=== PATIENT | female | born 1940 | race Caucasian/White ===

== ENCOUNTER → 2016-08-24 | Outpatient (CLI) | payer OTHER ==
[~2016-08-24] MED LIST: ASPI81TA28 PO; ATRINS INH; ATV5X PO; BISA-16 PO; CHOLDRO3 PO; CHOLTAB3 PO; CRD30 PO; DILT30TA PO; DLC5 PO; FAMO40TA6 PO; FURO20TA PO; HYDR1SOL PO; HYDR1SUS2 PO; HYDR5LIQ PO; LORA-741 PO; LPR25 PO; MOMLX PO; MORP1SOL PO; MORP20SO PO; MRLP17X PO; MYL80 PO; NRV/5 PO; NRV5 PO; NYSS/ PO; ONDA4TAB46 PO; OXGN; PRD20 PO; PRED10TA PO; PRVHFAIN INH; SALI0.6510; SIME80CH12 PO; SYMIN160 INH; VNTHFA/IN INH; XPNINS INH
== END | disposition home or self-care (01) ==
LOC: C.LABSPEC 15:08
PROVIDERS: ATTEND Internal Medicine
DX: J44.9 Chronic obstructive pulmonary disease, unspecified (principal); Z96.0 Presence of urogenital implants

== ENCOUNTER 2017-02-20 08:05 | Inpatient (IN) | payer OTHER ==
[2017-02-20] VITALS (8 sets, daily range): BP systolic 129–151; BP diastolic 70–92; PULSE 116–133; TEMP 36.7–37.3; O2SAT 92–96; Ht 152.4 cm; Wt 86.0 kg
[~2017-02-20] VITALS: Ht 152.4 cm; Wt 86.0 kg
[~2017-02-20 08:05] MED LIST changes: -ATRINS INH; -BISA-16 PO; -CHOLDRO3 PO; -DILT30TA PO; -FURO20TA PO; -HYDR1SOL PO; -HYDR5LIQ PO; -LORA-741 PO; -LPR25 PO; -MORP20SO PO; -NRV/5 PO; -ONDA4TAB46 PO; -PRD20 PO; -PRED10TA PO; -SALI0.6510; -SIME80CH12 PO; -VNTHFA/IN INH; -XPNINS INH
[2017-02-20] MEDS ORDERED: ALBUTEROL 0.083% NEBU SOLN 3 ML VIAL INH STA (08:31)
[2017-02-20] MEDS ORDERED: METHYLPREDNISOLONE 125 MG VIAL IV STA (08:31)
[2017-02-20 08:52] LABS: BASO % 0.3 %; BASO ABS # 0.06 K/uL (0-0.2); COMPLETE YES; EOS % 4.1 %; HEMATOCRIT 45.1 % (37-47); IG% 0.3 %; LYMPH % 22.3 %; LYMPH ABS # 3.83 K/uL (1.2-3.4); MEAN CELL VOLUME 102.5 fL (80-100); MEAN CORPUSCULAR HGB CONC 31.3 g/dl (32-36); MEAN PLATELET VOLUME 11.5 fL (7.4-10.4); MONO % 8.7 %; NEUT % 64.3 %; PLATELET COUNT 220 K/uL (130-400); WHITE BLOOD COUNT 17.21 K/uL (4.8-10.8)
[2017-02-20 09:03] LABS: PARTIAL THROMBOPLASTIN RATIO 0.9; PROTHROMBIN TIME (PATIENT) 10.7 SECONDS (9.0-12.0)
[2017-02-20 09:08] LABS: VEN BLOOD GAS BASE EXCESS 7.4 mEq/L
[2017-02-20 09:11] LABS: ALT/SGPT 16 U/L (12-78); BLOOD UREA NITROGEN 13 mg/dl (7-18); BUN/CREATININE RATIO 14.1 (10-20); CALCIUM 9.6 mg/dl (8.5-10.1); CARBON DIOXIDE 33 mmol/L (21-32); CHLORIDE 98 mmol/L (98-107); CREATININE 0.95 mg/dl (0.60-1.20); GLUCOSE 164 mg/dl (70-99); SODIUM 139 mmol/L (136-145)
[2017-02-20] MEDS ORDERED: MORP20SO PO (09:13)
[2017-02-20] MEDS ORDERED: FAMO40TA6 PO (09:13)
[2017-02-20] MEDS ORDERED: LORA-741 PO (09:13)
[2017-02-20] MEDS ORDERED: PRED10TA PO (09:13)
[2017-02-20] MEDS ORDERED: DILT30TA PO (09:13)
[2017-02-20] MEDS ORDERED: NRV/5 PO (09:13)
[2017-02-20] MEDS ORDERED: HYDR1SOL PO (09:13)
[2017-02-20] MEDS ORDERED: VNTHFA/IN INH (09:13)
[2017-02-20 09:16] LABS: ALB/GLOB RATIO 0.8 (0.9-2); ALKALINE PHOSPHATASE 89 U/L (45-117); AST/SGOT 12 U/L (15-37)
--- NOTE | 2017-02-20 09:49 | DIAGNOSTIC IMAGING REPORT ---
SINGLE VIEW CHEST CLINICAL HISTORY: Cough. FINDINGS: An AP, portable, upright chest radiograph is compared to chest x-ray and chest CT dated 05/31/2015. The examination is degraded by portable technique and patient rotation. A 2-lead cardiac pacemaker is unchanged in position and partially obscures the left upper chest. The cardiomediastinal silhouette is unremarkable noting atherosclerotic calcification of the thoracic aorta. Emphysema and chronic interstitial thickening are similar to previous. Patchy airspace consolidation is seen at the left lung base. The right lung appears clear. No large pleural effusion or pneumothorax is seen. The skeletal structures are osteopenic. The bony thorax is grossly intact. IMPRESSION: 1. Emphysema. 2. Patchy airspace consolidation is seen at the left lung base. Correlate clinically for evidence of pneumonia/aspiration pneumonitis. Radiographic follow-up to resolution is recommended. 3. Cardiac pacemaker. There is no radiographic evidence of congestive failure. Electronically signed by: Contreras Thomas M.D. 02/20/2017 9:47 AM Dictated Date/Time: 02/20/2017 9:45 AM
[2017-02-20] MEDS ORDERED: PIPERACILLIN/TAZOBACTAM 3.375 GM/100ML D5W IV STA (09:59)
[2017-02-20] MEDS ORDERED: LEVALBUTEROL 1.25MG/0.5ML NEB INH STA (11:11)
[2017-02-20] MEDS ORDERED: ONDANSETRON INJ 2 MG/ML 2 ML VIAL IV PRN (11:15)
[2017-02-20] MEDS ORDERED: MAGNESIUM HYDROXIDE SUSP 30 ML UDC PO PRN (11:15)
[2017-02-20] MEDS ORDERED: LEVALBUTEROL/IPRATROPIUM NEB INH PRN (11:45)
[2017-02-20] MEDS ORDERED: HYDR5LIQ PO (11:53)
[2017-02-20] MEDS ORDERED: SIME80CH12 PO (11:53)
[2017-02-20] MEDS ORDERED: FURO20TA PO (11:53)
[2017-02-20] MEDS ORDERED: BISA-16 PO (11:53)
[2017-02-20] MEDS ORDERED: CHOLDRO3 PO (11:53)
[2017-02-20] MEDS ORDERED: ONDA4TAB46 PO (11:53)
[2017-02-20] MEDS ORDERED: OXGN (11:53)
[2017-02-20] MEDS ORDERED: PIPERACILL/TAZOBAC CONSULT ACTIVE SCH (11:56)
[2017-02-20] MEDS ORDERED: SIMETHICONE 80 MG CHEW PO PRN (12:00)
[2017-02-20] MEDS ORDERED: LEVALBUTEROL 0.63MG/3 ML NEB INH PRN (13:00)
[2017-02-20] MEDS ORDERED: IPRATROPIUM BROMIDE NEB SOLN 0.02% 2.5 ML VIAL INH PRN (13:00)
[2017-02-20] MEDS ORDERED: SODIUM CHLORIDE 0.65% NA SOLN 45 ML (OCEAN) ONE (13:11)
[2017-02-20] MEDS: METHYLPREDNISOLONE IV 40 MG in SYRINGE 0 ML IV SCH ×2 (13:15→20:14)
[2017-02-20] MEDS ORDERED: SODIUM CHLORIDE 0.9% 500ML 500 ML IV ONE (13:30)
[2017-02-20] MEDS: DILTIAZEM HCL 60 MG TAB PO SCH ×2 (13:38→20:15)
[2017-02-20] MEDS: HEPARIN SOD 5000 UNIT/0.5 ML CARP SQ SCH ×2 (13:38→20:24)
[2017-02-20] MEDS: IPRATROPIUM BROMIDE NEB SOLN 0.02% 2.5 ML VIAL INH SCH ×2 (14:17→19:02)
[2017-02-20] MEDS: LEVALBUTEROL 1.25MG/0.5ML NEB INH SCH ×2 (14:17→19:02)
[2017-02-20] MEDS ORDERED: LEVALBUTEROL/IPRATROPIUM NEB INH SCH (15:00)
[2017-02-20] MEDS ORDERED: PERFLUTREN LIPID MICROSPHERE (DEFINITY) IV ONE (15:04)
--- NOTE | 2017-02-20 15:04 | EMERGENCY ROOM VISIT NOTE ---
History Report prepared by Kwame: Aniyah Lucero Under the Supervision of: Dr. Cr Munson D.O. First contact with patient: 08:12 Stated Complaint: SHORTNESS OF BREATH History of Present Illness The patient is a 77 year old female who presents to the Emergency Room with complaints of ongoing shortness of breath that worsened over the past two to three days. The patient reports a history of COPD and chronic bronchitis. She states that she is on nasal cannula oxygen chronically. The patient states that she has a chronic cough that has not worsened. The patient reports intermittent chest pain for the past two weeks. She states that over the past three months she has had abdominal pain. The patient denies any history of PEs. She states that she has been on hospice since May 2016. The patient states that she took Ativan and Fentanyl prior to arrival. She denies any allergy to Albuterol. The patient denies headache, change in vision, fevers, nausea, vomiting, diarrhea, pain with urination, and melena. Source of History: patient Onset: two to three days Position: other (global) Quality: other (shortness of breath) Timing: worsening, other (ongoing) Associated Symptoms: + cough, + chest pain, + abdominal pain Review of Systems See HPI for pertinent positives & negatives. A total of 10 systems reviewed and were otherwise negative. Past Medical & Surgical Medical Problems: (1) 2Nd degree AV block (2) Chronic obstructive lung disease (3) Chronic respiratory failure (4) CKD (chronic kidney disease), stage III (5) COPD exacerbation (6) Essential hypertension (7) Pneumonia (8) Pulmonary hypertension (9) Right bundle branch block Surgical Problems: (1) S/P appendectomy (2) S/P placement of cardiac pacemaker (3) S/P tubal ligation Family History Diabetes mellitus FH: heart disease Hypertension Stroke Social History Smoking Status: Former Smoker Alcohol Use: none Drug Use: none Marital Status: single Occupation Status: retired Current/Historical Medications Scheduled Albuterol Hfa (Ventolin Hfa), 2 PUFFS INH QID Amlodipine Besylate (Amlodipine Besylate), 1 TAB PO DAILY Bisacodyl (Dulcolax), 2 TAB PO DAILY Cholecalciferol (Vitamin D3), 1 ML PO DAILY Diltiazem Hcl (Cardizem), 2 TAB PO TID Famotidine (Pepcid), 40 MG PO DAILY Furosemide (Lasix), 1 TAB PO UD Home O2 Therapy (Oxygen), 4 LITERS NA CONTINOUS Hydrocodone Polistirex-Chlorph (Hydrocodone Polistirex/Ch 10-8 mg/5Ml), 5 ML PO Q6 Prednisone (Prednisone), 1 TAB PO DAILY Simethicone (Mylicon), 80 MG PO Q6 Scheduled PRN Lorazepam (Ativan), 0.5 MG PO Q4H PRN for Anxiety Morphine Sulfate (Morphine Sulfate), 1.3-2.5 ML PO Q1H PRN for Shortness of Breath Ondansetron Hcl (Zofran), 4 MG PO Q6 PRN for Nausea Allergies Coded Allergies: Budesonide (Verified Allergy, Severe, TOLERATES PULMICORT.Swelling of neck , face, all extremities., 02/20/17) Tetanus Toxoids (Verified Allergy, Severe, SWELLING, 02/20/17) Albuterol (Verified Allergy, Unknown, swelling of face and neck, 02/20/17) Azithromycin (Verified Allergy, Unknown, UNKNOWN, 02/20/17) Ciprofloxacin (Verified Allergy, Unknown, UNKOWN, 02/20/17) Doxycycline (Verified Allergy, Unknown, unkn, 02/20/17) Formoterol (Verified Allergy, Unknown, Swelling of face and throat., 02/20) Ipratropium (Verified Allergy, Unknown, swelling of face and neck, ) Levofloxacin (Verified Allergy, Unknown, Flushing., 02/20/17) Mometasone (Verified Allergy, Unknown, Swelling of face and throat., 02/20) Reported by PT, reaction on 07/15/2012. Morphine (Verified Adverse Reaction, Unknown, nausea, 02/20/17) Physical Exam Vital Signs Date Time Temp Pulse Resp B/P (MAP) Pulse Ox O2 Delivery O2 Flow Rate FiO2 02/20/17 11:05 128 26 92 02/20/17 11:01 152/82 02/20/17 10:58 128 22 129/78 92 Nasal Cannula 6.0 02/20/17 10:50 129 33 92 02/20/17 10:35 130 28 92 02/20/17 10:31 129/78 02/20/17 10:20 130 24 92 02/20/17 10:05 132 29 155/82 88 02/20/17 09:50 131 33 92 02/20/17 09:35 124 25 95 02/20/17 09:20 121 31 93 02/20/17 09:05 121 22 93 02/20/17 08:50 122 28 93 02/20/17 08:49 94 Oxymask 6.0 02/20/17 08:49 94 Mask 6.0 02/20/17 08:46 94 Oxymask 6.0 02/20/17 08:38 37.3 134 32 182/98 88 Nasal Cannula 5.0 02/20/17 08:35 126 18 94 02/20/17 08:27 156/102 02/20/17 08:20 129 23 94 02/20/17 08:17 130 02/20/17 08:11 182/98 Physical Exam GENERAL: Sitting up in bed, in moderate distress, dyspneic with conversation, on 6liters, alert, well nourished, non-toxic EYE EXAM: normal conjunctiva. OROPHARYNX: no exudate, no erythema, lips, buccal mucosa, and tongue normal and mucous membranes are moist NECK: supple, no nuchal rigidity, no adenopathy, non-tender LUNGS: Poor air movement with diffuse wheezing. HEART: Tachycardic rate, no murmurs, S1 normal and S2 normal ABDOMEN: abdomen soft, non-tender, normo-active bowel sounds, no masses, no rebound or guarding. BACK: Back is symmetrical on inspection and there is no deformity, no midline tenderness, no CVA tenderness. SKIN: no rashes and no bruising UPPER EXTREMITIES: upper extremities are grossly normal. LOWER EXTREMITIES: No pitting edema. Calves are equal bilaterally. NEURO EXAM: Normal sensorium, cranial nerves II-XII grossly intact, normal speech, no gross weakness of arms, no gross weakness of legs. Medical Decision & Procedures ER Provider Diagnostic Interpretation: Radiology results as stated below per my review and the radiologist's interpretation: SINGLE VIEW CHEST CLINICAL HISTORY: Cough. FINDINGS: An AP, portable, upright chest radiograph is compared to chest x-ray and chest CT dated 05/31/2015. The examination is degraded by portable technique and patient rotation. A 2-lead cardiac pacemaker is unchanged in position and partially obscures the left upper chest. The cardiomediastinal silhouette is unremarkable noting atherosclerotic calcification of the thoracic aorta. Emphysema and chronic interstitial thickening are similar to previous. Patchy airspace consolidation is seen at the left lung base. The right lung appears clear. No large pleural effusion or pneumothorax is seen. The skeletal structures are osteopenic. The bony thorax is grossly intact. IMPRESSION: 1. Emphysema. 2. Patchy airspace consolidation is seen at the left lung base. Correlate clinically for evidence of pneumonia/aspiration pneumonitis. Radiographic follow-up to resolution is recommended. 3. Cardiac pacemaker. There is no radiographic evidence of congestive failure. Electronically signed by: Contreras Thomas M.D. 02/20/2017 9:47 AM Dictated Date/Time: 02/20/2017 9:45 AM Laboratory Results 02/20/17 08:25 Red Blood Count 4.40, Mean Corpuscular Volume 102.5, Mean Corpuscular Hemoglobin 32.0, Mean Corpuscular Hemoglobin Concent 31.3, Mean Platelet Volume 11.5, Neutrophils (%) (Auto) 64.3, Lymphocytes (%) (Auto) 22.3, Monocytes (%) ( Auto) 8.7, Eosinophils (%) (Auto) 4.1, Basophils (%) (Auto) 0.3, Neutrophils # ( Auto) 11.08, Lymphocytes # (Auto) 3.83, Monocytes # (Auto) 1.49, Eosinophils # ( Auto) 0.70, Basophils # (Auto) 0.06 02/20/17 08:25 Test 02/20/17 08:25 02/20/17 08:51 White Blood Count 17.21 K/uL (4.8-10.8) Red Blood Count 4.40 M/uL (4.2-5.4) Hemoglobin 14.1 g/dL (12.0-16.0) Hematocrit 45.1 % (37-47) Mean Corpuscular Volume 102.5 fL (80-100) Mean Corpuscular Hemoglobin 32.0 pg (25-34) Mean Corpuscular Hemoglobin Concent 31.3 g/dl (32-36) Platelet Count 220 K/uL (130-400) Mean Platelet Volume 11.5 fL (7.4-10.4) Neutrophils (%) (Auto) 64.3 % Lymphocytes (%) (Auto) 22.3 % Monocytes (%) (Auto) 8.7 % Eosinophils (%) (Auto) 4.1 % Basophils (%) (Auto) 0.3 % Neutrophils # (Auto) 11.08 K/uL (1.4-6.5) Lymphocytes # (Auto) 3.83 K/uL (1.2-3.4) Monocytes # (Auto) 1.49 K/uL (0.11-0.59) Eosinophils # (Auto) 0.70 K/uL (0-0.5) Basophils # (Auto) 0.06 K/uL (0-0.2) RDW Standard Deviation 48.9 fL (36.4-46.3) RDW Coefficient of Variation 13.0 % (11.5-14.5) Immature Granulocyte % (Auto) 0.3 % Immature Granulocyte # (Auto) 0.05 K/uL (0.00-0.02) Prothrombin Time 10.7 SECONDS (9.0-12.0) Prothromb Time International Ratio 1.0 (0.9-1.1) Activated Partial Thromboplast Time 23.1 SECONDS (21.0-31.0) Partial Thromboplastin Ratio 0.9 Anion Gap 8.0 mmol/L (3-11) Est Creatinine Clear Calc Drug Dose 51.0 ml/min Estimated GFR () 67.9 Estimated GFR (Non- 58.6 BUN/Creatinine Ratio 14.1 (10-20) Calcium Level 9.6 mg/dl (8.5-10.1) Magnesium Level 2.0 mg/dl (1.8-2.4) Total Bilirubin 0.5 mg/dl (0.2-1) Aspartate Amino Transf (AST/SGOT) 12 U/L (15-37) Alanine Aminotransferase (ALT/SGPT) 16 U/L (12-78) Alkaline Phosphatase 89 U/L (45-117) Troponin I < 0.015 ng/ml (0-0.045) Total Protein 7.5 gm/dl (6.4-8.2) Albumin 3.3 gm/dl (3.4-5.0) Globulin 4.2 gm/dl (2.5-4.0) Albumin/Globulin Ratio 0.8 (0.9-2) Procalcitonin < 0.05 ng/ml (0-0.5) Venous Blood pH 7.37 (7.36-7.41) Venous Blood Partial Pressure CO2 61 mmHg (38.0-50.0) Venous Blood Partial Pressure O2 45 mmHg Venous Blood HCO3 35 mmol/L Venous Blood Oxygen Saturation 80.0 % Venous Blood Base Excess 7.4 mEq/L Date/Time Source Procedure Growth Status 02/20/17 00:00 Nasal MRSA DNA Surveillance Screen - Final Specimen Negative for MRSA by DNA Probe Complete Laboratory results per my review. Medications Administered Medications (Trade) Dose Ordered Sig/Tracy Route Start Time Stop Time Status Last Admin Dose Admin Methylprednisolone Sodium Succinate (Solu-Medrol IV) 125 mg NOW STAT IV 02/20/17 08:31 02/20/17 08:32 DC 02/20/17 08:55 125 MG Albuterol Sulfate (Ventolin 0.083% 2.5MG/3ML Neb) 7.5 mg NOW STAT INH 02/20/17 08:31 02/20/17 08:32 DC 02/20/17 09:14 7.5 MG Piperacillin Sod/ Tazobactam Sod (Zosyn Iv) 3.375 gm NOW STAT IV 02/20/17 09:59 02/20/17 10:01 DC 02/20/17 10:56 3.375 GM ECG Indication: SOB/dyspnea Rate (beats per minute): 128 Rhythm: sinus tachycardia Findings: Q waves (Inferior), RBBB, ST depression (Lateral), other (poor baseline) Comparison ECG Date: 06/02/15 Change: When compared to EKG done on 06/02/15, the lateral ST depressions are worse today. ED Course ED COURSE: Vital signs were reviewed and showed tachycardic, hypoxic, hypertensive The patients medical record was reviewed The above diagnostic studies were performed and reviewed. ED treatments and interventions as stated above. 0817: The patient was evaluated in room A11B. A complete history and physical examination was performed. 0831: Ordered Albuterol Sulfate 7.5 mg INH, Solu-Medrol IV 125 mg IV. 0959: Ordered Zosyn IV 3.375 gm IV. 1005: Upon reevaluation, the patient is resting comfortably.I discussed my findings with the patient and she understands and agrees with the treatment plan. Based on the patients age, coexisting illnesses, exam and lab findings the decision to treat as an inpatient was made. The patient remained stable while under my care. The patient will be evaluated for further management. 1007: I discussed the patients case with JOSE Fu PA-C. She is going to evaluate the patient for further treatment. 1032: I updated the patient at this time and she is feeling better. Medical Decision Differential diagnoses includes but is not limited to pneumonia, bronchitis, COPD/Asthma exacerbation, pneumothorax, pulmonary embolism, congestive heart failure, acute coronary syndrome. Patient is a 77-year-old female who presents to ER for shortness breath. Previously on hospice and was transported in. She rewrote her hospice treatment. She was hypoxic on her typical 4 L nasal cannula. Pulse ox was in the low 80s. She was placed on 6 L. Pulse ox trended up into the low 90s. Labs were obtained. White count 17,000. BMP all within LFTs, bilirubin and troponin was negative. Patient was given 3 neb treatments with improvement of her symptoms. She is given IV steroids. She is given IV antibiotics. She is admitted with sepsis secondary to pneumonia and hypoxia. She was monitored closely wall in the ER. Medication Reconcilliation Current Medication List: was personally reviewed by me Blood Pressure Screening Patient's blood pressure: Elevated blood pressure Blood pressure disposition: Elevated BP felt to be situational, Did not require urgent referral Consults Time Called: 1005 Consulting Physician: JOSE Fu PA-C Returned Call: 1007 I discussed the patients case with JOSE Fu PA-C. She is going to evaluate the patient for further treatment. Impression Primary Impression: Pneumonia Additional Impressions: Respiratory distress COPD exacerbation Critical Care I have personally spent 35 minutes of critical care time in the direct management of this patient. This includes bedside care, interpretation of diagnostic studies, and testing, discussion with consultants, patient, and family members, and other required patient management activities. This 35 minutes is in excess of all separately billable procedures. Scribe Attestation The scribe's documentation has been prepared under my direction and personally reviewed by me in its entirety. I confirm that the note above accurately reflects all work, treatment, procedures, and medical decision making performed by me. Departure Information Dispostion Being Evaluated By Hospitalist Referrals Zara Corona M.D. (PCP) Problem Qualifiers Primary Impression: Pneumonia Pneumonia type: due to unspecified organism Laterality: unspecified laterality Lung location: unspecified part of lung Qualified Codes: J18.9 - Pneumonia, unspecified organism
--- NOTE | 2017-02-20 16:11 | History and Physical ---
History & Physical Date & Time of Service: Feb 20, 2017 at 12:02 Chief Complaint: Shortness Of Breath Primary Care Physician: Zara Corona M.D. History of Present Illness Source: patient, clinic records, hospital records Pt is 77 y/o F with PMH severe end stage COPD and on hospice, HTN, RBBB, 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 Pt on hospice since 05/2016 for end stage COPD. Reports was on hospice in past also and then off and then back on. She reports that she hasn't followed with pulmonology for years. Uses albuterol inhaler Q4hrs and prednisone 10mg daily. Pt on home O2 at 4L continuously and has SOB at rest at baseline. On morphine prn pain/sob. Uses Ativan prn anxiety. Pt states has chronic intermittent productive cough of green sputum for "years". Reports approx month ago cough of green sputum more consistent and pt was placed on Ceftin. She states initially 250mg BID x 10 days and then 500mg BID x 10 days. Pt states past 2-3 days with increased SOB. Pt reports bedridden for past year as has significant weakness. Is able to ambulate with assistance to potty chair. C/O decreased appetite for past month and didn't eat or drink much yesterday. Denies any increased LE edema and reports chronic LE edema. Has Lasix to use prn , but hasn't used that for months. Reports hx chronic CP intermittently, denies any worsening. Also reports hx chronic abdominal pain and reports morphine helps with that. Hx intermittent constipation, and reports BM yesterday. Pt states has been feeling hot, unsure if she has had a fever. Denies diaphoresis, V/D, MARIE, dizziness, syncope, vision changes, neck pain, CP, SOB, orthopnea, palpitations, sore throat, choking, otalgia, rhinorrhea, dysuria, hematuria, hematochezia, melena. In ER pt tachy at 130, R:32, 88% on 4L. WBC: 17, negative troponin. EKG: sinus tachy 128, RBBB. pt given albuterol neb with improvement of SOB, also given solumedrol 125mg, zosyn. 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 Comment: s/p pacemaker placement Status: Chronic (2) Chronic obstructive lung disease Status: Chronic (3) Chronic respiratory failure Status: Chronic (4) CKD (chronic kidney disease), stage III Status: Chronic (5) Essential hypertension Status: Chronic (6) Pulmonary hypertension Status: Chronic (7) Right bundle branch block Status: Chronic Surgical Problems: (1) S/P appendectomy Status: Chronic (2) S/P placement of cardiac pacemaker Status: Chronic (3) S/P tubal ligation Status: Chronic Family History Diabetes mellitus MOTHER GRANDMOTHER FH: heart disease MOTHER Hypertension MOTHER Stroke Social History Smoking Status: Former Smoker (quit 2009, Smoked 0.8ppd x 40 years) Smokeless Tobacco Use: No Alcohol Use: 1 glass a wine a day Drug Use: none Marital Status: single Housing status: lives with family Occupational Status: retired Immunizations History of Influenza Vaccine: No History of Tetanus Vaccine?: ALLERGIC History of Pneumococcal: Yes Pneumococcal Date: May 24, 1991 History of Hepatitis B Vaccine: No Multi-Drug Resistant Organisms History of MDRO: No Allergies Coded Allergies: Budesonide (Verified Allergy, Severe, TOLERATES PULMICORT.Swelling of neck , face, all extremities., 02/20/17) Tetanus Toxoids (Verified Allergy, Severe, SWELLING, 02/20/17) Albuterol (Verified Allergy, Unknown, swelling of face and neck, 02/20/17) Azithromycin (Verified Allergy, Unknown, UNKNOWN, 02/20/17) Ciprofloxacin (Verified Allergy, Unknown, UNKOWN, 02/20/17) Doxycycline (Verified Allergy, Unknown, unkn, 02/20/17) Formoterol (Verified Allergy, Unknown, Swelling of face and throat., 02/20) Ipratropium (Verified Allergy, Unknown, swelling of face and neck, ) Levofloxacin (Verified Allergy, Unknown, Flushing., 02/20/17) Mometasone (Verified Allergy, Unknown, Swelling of face and throat., 02/20) Reported by PT, reaction on 07/15/2012. Morphine (Verified Adverse Reaction, Unknown, nausea, 02/20/17) Home Medications Scheduled Albuterol Hfa (Ventolin Hfa), 2 PUFFS INH QID Amlodipine Besylate (Amlodipine Besylate), 1 TAB PO DAILY Bisacodyl (Dulcolax), 2 TAB PO DAILY Cholecalciferol (Vitamin D3), 1 ML PO DAILY Diltiazem Hcl (Cardizem), 2 TAB PO TID Famotidine (Pepcid), 40 MG PO DAILY Furosemide (Lasix), 1 TAB PO UD Home O2 Therapy (Oxygen), 4 LITERS NA CONTINOUS Hydrocodone Polistirex-Chlorph (Hydrocodone Polistirex/Ch 10-8 mg/5Ml), 5 ML PO Q6 Prednisone (Prednisone), 1 TAB PO DAILY Simethicone (Mylicon), 80 MG PO Q6 Scheduled PRN Lorazepam (Ativan), 0.5 MG PO Q4H PRN for Anxiety Morphine Sulfate (Morphine Sulfate), 1.3-2.5 ML PO Q1H PRN for Shortness of Breath Ondansetron Hcl (Zofran), 4 MG PO Q6 PRN for Nausea Review of Systems Constitutional: + problem reported (see HPI), No weight loss Eyes: No eye pain, No redness, No discharge ENT: No unusual epistaxis, No nasal symptoms Respiratory: + problem reported (see HPI) Cardiovascular: + problem reported (see HPI), No PND Abdomen: + problem reported (see HPI) Musculoskeletal: No joint pain, No muscle pain, No calf pain Neurologic: + weakness (see HPI), + balance problems (reports problems with balance for greater than a year), No paralysis, No problem reported Endocrine: No excessive thirst, No excessive urination Hematologic / Lymphatic: No abnormal bleeding/bruising, No night sweats Physical Exam Vital Signs Date Time Temp Pulse Resp B/P (MAP) Pulse Ox O2 Delivery O2 Flow Rate FiO2 02/20/17 11:33 126 02/20/17 10:58 128 22 129/78 92 Nasal Cannula 6.0 02/20/17 08:49 94 Oxymask 6.0 02/20/17 08:49 94 Mask 6.0 02/20/17 08:46 94 Oxymask 6.0 02/20/17 08:38 37.3 134 32 182/98 88 Nasal Cannula 5.0 02/20/17 08:17 130 General Appearance: + obese, + pertinent finding (chronic ill appearing. pt sitting upright in bed) Head: normocephalic, atraumatic Eyes: normal inspection, PERRL, EOMI, sclerae normal ENT: hearing grossly normal, pharynx normal, + pertinent finding (mildly dry mucous membranes. bilateral nare with scab) Neck: supple, no JVD, trachea midline Respiratory/Chest: chest non-tender, + respiratory distress (increased respirations with mild work of breathing, pt is able to speak in sentences, On NC O2. ), + decreased breath sounds (throughout, +wheezing throughout, rhonchi bases, rales left base) Cardiovascular: no murmur, + tachycardia Abdomen/GI: + pertinent finding (distended, +umbilical hernia, soft, diffuse tenderness to palpation entire abdomen without rebound or guarding) Extremities/Musculoskelatal: no calf tenderness, normal capillary refill, non- tender, + swelling (bilateral LE 1+pitting edema), + pertinent finding (pedal pushes and pulls intact) Neurologic/Psych: alert, normal mood/affect, oriented x 3 Skin: normal color, warm/dry Diagnostics Laboratory Results Last 24 Hours Test 02/20/17 08:25 02/20/17 08:51 White Blood Count 17.21 K/uL Red Blood Count 4.40 M/uL Hemoglobin 14.1 g/dL Hematocrit 45.1 % Mean Corpuscular Volume 102.5 fL Mean Corpuscular Hemoglobin 32.0 pg Mean Corpuscular Hemoglobin Concent 31.3 g/dl Platelet Count 220 K/uL Mean Platelet Volume 11.5 fL Neutrophils (%) (Auto) 64.3 % Lymphocytes (%) (Auto) 22.3 % Monocytes (%) (Auto) 8.7 % Eosinophils (%) (Auto) 4.1 % Basophils (%) (Auto) 0.3 % Neutrophils # (Auto) 11.08 K/uL Lymphocytes # (Auto) 3.83 K/uL Monocytes # (Auto) 1.49 K/uL Eosinophils # (Auto) 0.70 K/uL Basophils # (Auto) 0.06 K/uL RDW Standard Deviation 48.9 fL RDW Coefficient of Variation 13.0 % Immature Granulocyte % (Auto) 0.3 % Immature Granulocyte # (Auto) 0.05 K/uL Prothrombin Time 10.7 SECONDS Prothromb Time International Ratio 1.0 Activated Partial Thromboplast Time 23.1 SECONDS Partial Thromboplastin Ratio 0.9 Sodium Level 139 mmol/L Potassium Level 4.0 mmol/L Chloride Level 98 mmol/L Carbon Dioxide Level 33 mmol/L Anion Gap 8.0 mmol/L Blood Urea Nitrogen 13 mg/dl Creatinine 0.95 mg/dl Est Creatinine Clear Calc Drug Dose 51.0 ml/min Estimated GFR () 67.9 Estimated GFR (Non- 58.6 BUN/Creatinine Ratio 14.1 Random Glucose 164 mg/dl Calcium Level 9.6 mg/dl Magnesium Level 2.0 mg/dl Total Bilirubin 0.5 mg/dl Aspartate Amino Transf (AST/SGOT) 12 U/L Alanine Aminotransferase (ALT/SGPT) 16 U/L Alkaline Phosphatase 89 U/L Troponin I < 0.015 ng/ml Total Protein 7.5 gm/dl Albumin 3.3 gm/dl Globulin 4.2 gm/dl Albumin/Globulin Ratio 0.8 Procalcitonin < 0.05 ng/ml Venous Blood pH 7.37 Venous Blood Partial Pressure CO2 61 mmHg Venous Blood Partial Pressure O2 45 mmHg Venous Blood HCO3 35 mmol/L Venous Blood Oxygen Saturation 80.0 % Venous Blood Base Excess 7.4 mEq/L Diagnostic Radiology CXR: IMPRESSION: 1. Emphysema. 2. Patchy airspace consolidation is seen at the left lung base. Correlate clinically for evidence of pneumonia/aspiration pneumonitis. Radiographic follow-up to resolution is recommended. 3. Cardiac pacemaker. There is no radiographic evidence of congestive failure EKG EKG: Sinus tachycardia Low voltage QRS Right bundle branch block T wave abnormality, consider lateral ischemia Abnormal ECG When compared with ECG of 02-JUN-2015 07:32, T wave inversion no longer evident in Inferior leads Confirmed by Sean Rothman ([id number]) on 02/20/2017 10:28:35 AM Impression Assessment and Plan COPD EXACERBATION Pt with chronic respiratory failure on 4L NC O2 dependent, on hospice with c/o increased sputum production, cough and increased baseline SOB. Pt given solumedrol 125mg IV in ER. had albuterol neb with improvement of SOB -trial of NSS bolus for tachycardia with improvement -continue O2 -solumedrol -MRSA screen -sputum culture -influenza swab -blood cultures added -xopenex/atrovent Q 6 h -pulmonology consult -pt does not want to be intubated PNEUMONIA CXR: consolidation LLL. WBC: 17, however pt is on chronic sterids. negative procalcitonin. Pt afebrile. suspect CAP. does not appear septic at this time -continue zosyn -consider repeat CXR -repeat cbc, prp in am HTN continue amlodipine -continue cardizem CHRONIC CP hx pacer. hx RBBB. Denies any worsening CP. Last echo 2016 EF: 65-70% -pacer check -echo CKD Cr 0.9 -baseline -avoid nephrotoxic agents when possible CHRONIC ABDOMINAL PAIN denies any worsening. pt uses morphine prn pain and prn breathing problems -hold on morphine initially to monitor pt GERD -continue pepcid DVT PROPHYLAXIS -heparin SQ DISPOSITION -admit tele -DNR and DNI as per discussion with pt -Follows with Dr Corona for routine care Pt was seen with Dr Robles. See addendum I have seen and examined the patient with our hospitalist team physician bookkeeping assistant and agree with the assessment and plan as above and would like to comment that patient is being treated for Acute on chronic respiratory failure with hypoxia and hypercarbia likely secondary to underlying Chronic obstructive pulmonary disease and on imaging with Left lower lobe infiltrate with concerns for pneumonia. Patient is also on narcotics at home for pain and shortness of breath. At this time will give narcotics prn to prevent withdrawal. However the main respiratory treatments will be methylprednisolone 40 mg IV q. 6 hours and on levalbuterol 1.25 q. 6 hours and ipratropium. As per pulmonary recommendations if patient's heart rate is high then should decrease the levalbuterol dose to 0.63. When patient's dyspnea improves and if patient can tolerate lying down flat, then possible CT scan of chest for further evaluation of the lung infiltrates Level of Care Telemetry Resuscitation Status DO NOT RESUSCITATE VTE Prophylaxis VTE Risk Assessment Done? Y/N: Yes Risk Level: Moderate Given or contraindicated: Unfractionated heparin SQ Additional Copies To Zara Corona M.D.
[2017-02-20] MEDS ORDERED: INFLUENZA ADMINISTRATION CHARGE ONE (16:15)
[2017-02-20] MEDS ORDERED: INFLUENZA VIRUS QUAD VACCINE 0.5 ML SYR IM. ONE (16:15)
[2017-02-20] MEDS: PIPERACILL/TAZOBAC IV 4.5 GM in DEXTROSE 5% 100ML IV SCH (16:22)
[2017-02-20] MEDS: LORAZEPAM 0.5 MG TAB PO PRN ×2 (16:32→21:47)
[2017-02-20 17:13] LABS: URINE APPEARANCE CLEAR (CLEAR); URINE BILIRUBIN NEG (NEG); URINE COLOR YELLOW; URINE NITRITE NEG (NEG); URINE SPECIFIC GRAVITY 1.028 (1.000-1.030); UROBILINOGEN NEG (NEG); ZZUR CULT IF INDIC CLEAN CATCH NO
[2017-02-20 17:18] LABS: MANUAL MICROSCOPIC REQUIRED? NO; REVIEW REQ? NO
--- NOTE | 2017-02-20 17:35 | ECHOCARDIOGRAM REPORT ---
*NOTICE TO RECEIVING DEMOCRAT AGENCY This information is strictly Confidential and protected under [place] law. [place] law prohibits you from making any further disclosure of this information unless further disclosure is expressly permitted by the written consent of the person to whom it pertains or is authorized by law. A general authorization for the release of medical or other information is not sufficient for this purpose. Hospital accepts no responsibility if the information is made available to any other person, INCLUDING THE PATIENT. Interpretation Summary * Name: GLENYS COFFEY Study Date: 02/20/2017 02:22 PM BP: 145/92 mmHg * Patient Location: .2E\S\E203\S\1 HR: 116 * : 1940 (M/d/yyyy) Gender: Female Height: 60 in * Age: 77 yrs Ethnicity: [place] Weight: 197 lb * Ordering Physician: Consuelo Liao * Referring Physician: Self, Referred * Performed By: Frank Meeks RCS * * Reason For Study: Chest Pain * BSA: 1.9 m2 * The study was technically limited. * -- Conclusions -- * Sinsu tachycardia was present during the echocardiogram. * The valves were not well visualized, and the Doppler assessment of the valves is suboptimal due to technical limitations and patient position, as patient was apparently sitting upright for the study, unable to lie down. Procedure Details * A complete two-dimensional transthoracic echocardiogram was performed (2D, M-mode, Doppler and color flow Doppler). * A contrast injection of Definity was performed to improve assessment of LV function. * Contrast was injected into an intravenous site in the right arm. * One vial of Definity ultrasound contrast was diluted in normal saline to a total volume of 10 ml. A total of '1' ml of solution was administered during imaging. * Lot # [id number] of Definity utilized for procedure. * Expiration date 1DEC18. * The attending nurse who injected the contrast agent was Amador Baumann RN. Left Ventricle * The left ventricle is hyperdynamic. Right Ventricle * The right ventricle is normal in size and function. Pericardium/Pleural * There is no pericardial effusion. MMode 2D Measurements and Calculations IVSd 0.88 cm IVSs 1.2 cm LVIDd 3.7 cm LVIDs 2.1 cm LVPWd 1.0 cm LVPWs 1.2 cm IVS/LVPW 0.85 FS 41.4 % EDV(Teich) 56.4 ml ESV(Teich) 15.1 ml EF(Teich) 73.2 % EDV(cubed) 48.8 ml ESV(cubed) 9.8 ml EF(cubed) 79.9 % % IVS thick 40.1 % % LVPW thick 11.5 % LV mass(C)d 103.7 grams LV mass(C)dI 55.9 grams/m\S\2 LV mass(C)s 69.6 grams LV mass(C)sI 37.5 grams/m\S\2 SV(Teich) 41.3 ml SI(Teich) 22.3 ml/m\S\2 SV(cubed) 39.0 ml SI(cubed) 21.0 ml/m\S\2 Ao root diam 3.2 cm Ao root area 7.9 cm\S\2 ACS 1.0 cm LA dimension 3.1 cm asc Aorta Diam 2.8 cm LA/Ao 0.97 EDV(MOD-sp4) 77.1 ml ESV(MOD-sp4) 27.5 ml EF(MOD-sp4) 64.3 % EDV(MOD-sp2) 64.5 ml ESV(MOD-sp2) 18.3 ml EF(MOD-sp2) 71.5 % SV(MOD-sp4) 49.6 ml SI(MOD-sp4) 26.7 ml/m\S\2 SV(MOD-sp2) 46.1 ml SI(MOD-sp2) 24.9 ml/m\S\2 Doppler Measurements and Calculations MV E max salty 120.6 cm/sec MV A max salty 56.1 cm/sec MV E/A 2.1 MV P1/2t max salty 140.4 cm/sec MV P1/2t 42.9 msec MVA(P1/2t) 5.1 cm\S\2 MV dec slope 959.1 cm/sec\S\2 MV dec time 0.11 sec Ao V2 max 156.2 cm/sec Ao max PG 9.8 mmHg Ao max PG (full) 5.4 mmHg LV V1 max PG 4.4 mmHg LV V1 max 104.7 cm/sec PA V2 max 119.5 cm/sec PA max PG 5.7 mmHg TR max salty 251.4 cm/sec
--- NOTE | 2017-02-20 18:12 | PULMONARY CONSULTATION ---
DATE OF CONSULTATION: 02/20/2017 TIME: 04:20 p.m. HISTORY OF PRESENT ILLNESS: The patient was seen in room 203. She is a 77-year-old female who presents with a chief complaint of severe shortness of breath. She has a longstanding history of severe COPD. In fact, the patient had been on hospice care at least since May. She used to be followed by Dr. Steele more than 5 years ago. Currently, patient is essentially bedridden. She states she only gets out to go to her doctor once a year or so. She states she has not been able to walk for several months. The exact reason for that was not clear to me. She has had a worsening of her breathing over the past few days. She states that her family doctor had prescribed an antibiotic. It seemed to decrease her cough and decrease her mucus. Her shortness of breath did not get better, however. She complains of chronic chest pains, both anteriorly and posteriorly. She complains of abdominal pain for 3 months, which she states is because of a hernia. The patient has not coughed up any blood. She does not bring up any phlegm at all or not much phlegm. She does have fairly frequent nose bleeds. The patient came to the Emergency Room and was evaluated. She had a chest x-ray done that reported a patchy airspace consolidation at the left lung base, suggesting possible pneumonia. She also had a pacemaker in the left upper anterior chest. Back in May of 2015, a comparison x-ray did show some discoid atelectasis at the left lung base in approximately the same area. Thus, it is difficult to be certain this is truly acute. The patient states that she cannot lay flat. Her breathing gets too bad. She lives with her son. She is on chronic oxygen therapy. She is also on chronic prednisone at 10 mg per day. She has been on chronic morphine therapy as well. The patient admits to drinking about 2 glasses of wine per day. I asked her if she was aware of problems drinking alcohol and using narcotics and she indicated that she was. PAST SURGICAL HISTORY: 1. Appendectomy. 2. Pacemaker insertion. 3. Tubal ligation. PAST MEDICAL HISTORY: 1. Hypertension. 2. Anxiety. 3. Chronic kidney disease stage III. 4. Pulmonary hypertension. 5. Severe COPD as noted. SOCIAL HISTORY: Tobacco none for 11 years. Previously 3/4 pack per day for 45 years. Alcohol use is described as 2 glasses of wine per day. FAMILY HISTORY: Father following complications of hip fracture. Mother soon after her father , less than 2 weeks. She did have hypertension. 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 REVIEW OF SYSTEMS: In addition to the above-mentioned complaints, the patient has severe weakness. She describes having balance problems. She states she has had pain in her chest and in her abdomen and now it has extended into her legs. The source for that pain is unclear. MEDICATIONS AT HOME: 1. Albuterol HFA 2 puffs q.i.d. 2. Prednisone 10 mg daily. 3. Amlodipine 1 tab daily. 4. Dulcolax 2 tabs daily. 5. Vitamin D3 daily. 6. Cardizem 2 tabs t.i.d. 7. Pepcid 40 mg daily. 8. Furosemide 1 daily. 9. O2 4 liters continuous. 10. Hydrocodone syrup q. 6 hours. ALLERGIES: LISTED ALLERGIES TO BUDESONIDE, TETANUS, AZITHROMYCIN, CIPROFLOXACIN, DOXYCYCLINE, FORMOTEROL, IPRATROPIUM, LEVOFLOXACIN, MOMETASONE, AND MORPHINE. SHE IS ALSO LISTED ALLERGIC TO ALBUTEROL. HER MEDICATIONS DO LIST ALBUTEROL AND MORPHINE DESPITE THE FACT SHE IS ON THOSE MEDICINES. REVIEW OF SYSTEMS: She has urinary incontinence. She has the bloody noses as mentioned. She has a lot of anxiety and I suspect depression. She states she is nonambulatory. Remainder of the review of systems is negative except as noted above. PHYSICAL EXAMINATION: GENERAL: The patient is a 77-year-old female who was cooperative, alert and oriented. She was in no distress at rest. She did appear fairly weak. Weight is 89.5 kilograms for a BMI of 38.5. VITAL SIGNS: Blood pressure is 145/92. Respiratory rate was 20 breaths per minute at the time of my exam. Heart rate is 130 per minute. Saturation was 93% on 5 liters. HEENT: Eye exam suggest cataracts. Arcus senilis was noted. Nares were congested. Mouth exam showed crowding. She has partial plates top and bottom. NECK: Palpation of the neck reveals no lymph nodes. HEART: The rhythm was regular. The patient tells me she has had a rapid rate all of her life, but I do not believe it has been to this degree. LUNGS: The breath sounds are very diminished. She has rales, but no wheezing. There was no accessory muscle use. The patient was exquisitely tender to touching her chest either anteriorly or posteriorly. CHEST: Inspection of the abdomen reveals mild distention. She has what appears to be an abdominal wall hernia. Bowel sounds were decreased, but present. She complained of tender areas diffusely in the abdomen. EXTREMITIES: Showed no cyanosis. She had trace edema. LABORATORY AND IMAGING DATA: Chest x-ray as noted showed a patchy airspace consolidation at the left lung base, emphysema, and a pacemaker. White count is 17.21. Hemoglobin 14.1. Platelets 220,000. Coags were normal. Venous blood gas showed a pH 7.37, pCO2 of 61, and pO2 of 45. Electrolytes show sodium 139, potassium 4.0, chloride 98, and bicarb 33. The BUN is 13 with a creatinine of 0.95. Liver functions were normal. Albumin was 3.3 and globulin was 4.2. Procalcitonin was normal. IMPRESSION: 1. Acute on chronic respiratory failure with hypoxia and hypercarbia. 2. Left lower lobe infiltrate. 3. Chronic obstructive pulmonary disease -- severe. 4. Chronic pain syndrome. 5. Abdominal pain -- possibly secondary to hernia. COMMENTS AND RECOMMENDATIONS: The patient is on Zosyn. I agree with that. She is on levalbuterol 1.25 q. 6 hours and ipratropium. I believe ipratropium was listed as an allergy, but I am not aware that she has had any problems thus far. This can be followed closely. If her heart rate stays up, I would decrease the levalbuterol dose to 0.63. I do agree with the methylprednisolone 40 mg IV q. 6 hours for now. She is on diltiazem 60 mg t.i.d. Obviously, the patient's chronic status is poor. I suspect she has been getting a lot of narcotics and taking alcohol as well and she apparently is also on cough medicine with hydrocodone. She is also listed as being on lorazepam. She had been on hospice care and I suspect this is where some of these medicines come from. She will need to have some narcotics to be used as needed. Otherwise, she will go into withdrawal. Apparently comfort care is the treatment of choice. She will need followup x-rays. Ideally, a CAT scan would be better to try and delineate exactly what that infiltrate is since there may have been something chronic in the same area. The patient does not think that she could lay flat, however. Thus, there are some impediment to treatment and diagnosis.
[2017-02-20 19:16] LABS: INFLUENZA A PCR Neg for Influ A (NEG); INFLUENZA B PCR Neg for Influ B (NEG)
[2017-02-20] MEDS: SENNA 8.6 MG TAB PO SCH (20:15)
[2017-02-20] MEDS: DOCUSATE SODIUM 100 MG CAP PO SCH (20:16)
[2017-02-20] MEDS: BOOST VANILLA PO SCH ×2 (20:32)
[2017-02-20] MEDS: MoRPHine SULFATE 2.5 MG/0.125 ML UDP PO PRN (21:47)
[2017-02-20] MEDS: CHLORPH/HYDROCOD EXT REL LIQ 5ML UDP PO PRN (21:52)
[2017-02-21] VITALS (13 sets, daily range): BP systolic 109–149; BP diastolic 71–92; PULSE 83–119; TEMP 36.5–37.2; O2SAT 92–97
[2017-02-21] MEDS: PIPERACILL/TAZOBAC IV 4.5 GM in DEXTROSE 5% 100ML IV SCH ×5 (00:15→23:40)
[2017-02-21] MEDS: METHYLPREDNISOLONE IV 40 MG in SYRINGE 0 ML IV SCH ×4 (02:00→21:18)
[2017-02-21] MEDS: IPRATROPIUM BROMIDE NEB SOLN 0.02% 2.5 ML VIAL INH SCH ×4 (02:16→18:59)
[2017-02-21] MEDS: MoRPHine SULFATE 2.5 MG/0.125 ML UDP PO PRN (04:12)
[2017-02-21] MEDS: LORAZEPAM 0.5 MG TAB PO PRN ×4 (04:12→18:16)
[2017-02-21] MEDS: HEPARIN SOD 5000 UNIT/0.5 ML CARP SQ SCH ×3 (06:10→21:23)
[2017-02-21 06:54] LABS: HEMATOCRIT 39.3 % (37-47); MEAN CELL VOLUME 100.5 fL (80-100); MEAN CORPUSCULAR HGB CONC 31.8 g/dl (32-36); MEAN PLATELET VOLUME 11.3 fL (7.4-10.4); PLATELET COUNT 173 K/uL (130-400); RED BLOOD COUNT 3.91 M/uL (4.2-5.4); WHITE BLOOD COUNT 20.37 K/uL (4.8-10.8)
[2017-02-21 07:29] LABS: BUN/CREATININE RATIO 17.4 (10-20); CALCIUM 9.3 mg/dl (8.5-10.1); CREATININE 0.89 mg/dl (0.60-1.20); POTASSIUM 4.1 mmol/L (3.5-5.1)
[2017-02-21] MEDS: BOOST VANILLA PO SCH ×6 (08:12→21:22)
[2017-02-21] MEDS: FAMOTIDINE 20 MG TAB PO SCH (08:12)
[2017-02-21] MEDS: DOCUSATE SODIUM 100 MG CAP PO SCH ×2 (08:12→21:19)
[2017-02-21] MEDS: SENNA 8.6 MG TAB PO SCH ×2 (08:12→21:19)
[2017-02-21] MEDS: DILTIAZEM HCL 60 MG TAB PO SCH ×3 (08:13→21:19)
[2017-02-21] MEDS: AMLODIPINE BESYLATE 5 MG TAB PO SCH (08:13)
[2017-02-21] MEDS ORDERED: BISACODYL 5 MG TABEC PO PRN (09:00)
--- NOTE | 2017-02-21 11:40 | PROGRESS NOTE ---
DATE: 02/21/2017 DATE: 02/21/2017 PROBLEM LIST: Includes: 1. Acute on chronic respiratory failure, hypoxia and hypercarbia. 2. Left lower lobe infiltrate. 3. Chronic obstructive pulmonary disease which is severe/end stage. 4. Chronic pain syndrome. 5. Abdominal pain. SUBJECTIVE: The patient was evaluated in room 203. She is a 77-year-old female who was on hospice at home prior to coming into the hospital. She has been on hospice for majority of this year, came in with increased shortness of breath. She is feeling better, she states that she is feeling much better today than she was when she came in. She states that she actually feels about 10% better that she normally does at home. She was not really having any cough or congestion at this point. The patient asked me if I had any aftershave on. I informed her I did not, but apparently there was an aroma that she fell she could not tolerate. Unfortunately because there was something that was affecting her respiratory status I was not able to complete the exam, the patient did not exhibit any coughing while I was in. She was able to complete sentences without difficulty. OBJECTIVE: GENERAL: The patient is a 77-year-old female who is alert and interactive, did not appear in any acute respiratory distress when I was in the room, did not appear in any distress in general, was able to complete sentences without difficulty. VITAL SIGNS: Temp 37, pulse 108, respiration 25, blood pressure is 138/70, pulse ox 97% on 4.5-5 liters. LABORATORY DATA: Shows a white count of 20,000, H&H 12.5 and 39.3, platelet count 173,000. Renal function stable. Sugar is 230. Procalcitonin is less than 0.05. Influenza titers negative. Blood cultures are pending. MRSA swab negative. IMPRESSION: Acute on chronic respiratory failure with hypoxia and hypercarbia. Unfortunately, unable to examine the patient today. Nursing reports that she has been doing well and has not shown any respiratory difficulties. What I was able to observe did not show any respiratory difficulties, although was not able to directly auscultate the lungs. At this point, since the patient gave me the history that she is doing better than she even does at home I would recommend to continue current regimen as it is. Will relay this information to Dr. Melendez as Dr. Melendez may want to try and assess her today as he was able to assess her yesterday. [facility]
--- NOTE | 2017-02-21 15:43 | Palliative Care Consultation ---
Consultation Date of Consultation: Feb 21, 2017. Requesting Physician: Dr. Robles Attending Physician: Dr. Robles Reason for Consultation: Goals of care History of Present Illness This 77 year old female patient with PMH severe COPD, oxygen dependence, and others listed below, presented to the hospital yesterday from home with c/o SOB. Patient is a hospice patient since May 2016 for her end-stage COPD, had been with another hospice agency prior to that as well. Apparently the patient had been having increased cough/sputum/SOB. She states that she and her son attempted to call hospice agency but they weren't able to come to the home, so 911 was called. CXR showed patchy airspace consolidation in LLL- pneumonia vs. aspiration pneumonitis. While in hospital, patient is receiving IV abx, IV steroids, and neb treatments. Palliative care consulted to establish goals of care. Met with patient in room 203, her sister is at bedside as well. Patient is alert and oriented x4. She reports pain at 7/10 generalized all over body-- she is in no distress and is talking to me in full sentences without difficulty. Patient states her breathing is only about 10% better. She is not getting out of bed, but patient states that is her norm. Her son quit his job to stay home with her, but she states that he is burnt-out and needs help. Her wish is to go back home with hospice. Patient states she does have pain 7/10, could not really tell me exactly where her pain is or what it's from. She states that she takes 1.25-2.5ml of her Roxanol at home, our med rec says it's 20mg/5ml, which would make patient's dose 5-10mg. She could not tell me how many times a day she takes it. Patient said that we are not giving her enough pain medication. I explained that the providers were concerned about giving too many narcotics probably due to the potential side effects of being drowsy, patient said, "I like feeling that way. " Past Medical/Surgical History Medical History: COPD, oxygen dependent Htn Right BBB Pacemaker insertion 2016 GERD Social History Smoking Status: Former Smoker (quit 2009, Smoked 0.8ppd x 40 years) History of Alcohol Use: Yes (wine 1-2 glasses/night) Drug Use: none Marital Status: single Housing Status: lives with family Occupation Status: retired Review of Systems Constitutional: + weakness (at baseline) ENT: No trouble swallowing Respiratory: + cough, + shortness of breath, + dyspnea on exertion Cardiac: No chest pain, No edema Abdomen: No pain, No nausea, No vomiting Psychiatric: + anxiety, No depression symptoms (but was tearful) Allergies Coded Allergies: Budesonide (Verified Allergy, Severe, TOLERATES PULMICORT.Swelling of neck , face, all extremities., 02/20/17) Tetanus Toxoids (Verified Allergy, Severe, SWELLING, 02/20/17) [place] (Verified Allergy, Mild, hives, 02/21/17) Albuterol (Verified Allergy, Unknown, swelling of face and neck, 02/20/17) Azithromycin (Verified Allergy, Unknown, UNKNOWN, 02/20/17) Ciprofloxacin (Verified Allergy, Unknown, UNKOWN, 02/20/17) Doxycycline (Verified Allergy, Unknown, unkn, 02/20/17) Formoterol (Verified Allergy, Unknown, Swelling of face and throat., 02/20) Ipratropium (Verified Allergy, Unknown, swelling of face and neck, ) Levofloxacin (Verified Allergy, Unknown, Flushing., 02/20/17) Mometasone (Verified Allergy, Unknown, Swelling of face and throat., 02/20) Reported by PT, reaction on 07/15/2012. Morphine (Verified Adverse Reaction, Unknown, nausea, 02/20/17) Medications Current Inpatient Medications Medications (Trade) Dose Ordered Sig/Tracy Route Start Time Stop Time Status Last Admin Dose Admin Acetaminophen (Tylenol Tab) 650 mg Q4H PRN PO 02/20/17 11:15 03/22/17 11:14 Magnesium Hydroxide (Milk Of Magnesia Susp) 30 ml Q12H PRN PO 02/20/17 11:15 03/22/17 11:14 Ondansetron HCl (Zofran Inj) 4 mg Q6H PRN IV 02/20/17 11:15 03/22/17 11:14 Piperacillin Sod/ Tazobactam Sod (Consult) 1 ea UD N/A 02/20/17 11:56 03/22/17 11:55 Methylprednisolone Sodium Succinate 40 mg/Syringe 0.64 ml @ 1.5 mls/min Q6H IV 02/20/17 14:00 03/22/17 13:59 02/21/17 13:48 1.5 MLS/MIN Heparin Sodium (Porcine) (Heparin Sq 5000 Unit/0.5ml) 5,000 unit Q8 SQ 02/20/17 14:00 03/22/17 13:59 02/21/17 13:48 5,000 UNIT Amlodipine Besylate (Norvasc Tab) 5 mg DAILY PO 02/21/17 09:00 03/23/17 08:59 02/21/17 08:13 5 MG Bisacodyl (Dulcolax Tab) 10 mg DAILY PRN PO 02/21/17 09:00 03/23/17 08:59 Diltiazem HCl (Cardizem Tab) 60 mg TID PO 02/20/17 14:00 03/22/17 13:59 02/21/17 13:48 60 MG Famotidine (Pepcid Tab) 40 mg DAILY PO 02/21/17 09:00 03/23/17 08:59 02/21/17 08:12 40 MG Chlorphenir/ Hydrocodone Polistirex (Tussionex Liqd) 5 ml Q6 PRN PO 02/20/17 12:00 03/06/17 11:59 02/20/17 21:52 5 ML Lorazepam (Ativan Tab) 0.5 mg Q4H PRN PO 02/20/17 12:00 03/22/17 11:59 02/21/17 13:49 0.5 MG Simethicone (Mylicon Chew Tab) 80 mg Q6 PRN PO 02/20/17 12:00 03/22/17 11:59 Ipratropium Ira (Atrovent 0.02% 0.5MG/2.5ML Neb) 0.5 mg Q6R INH 02/20/17 15:00 03/22/17 14:59 02/21/17 06:55 0.5 MG Ipratropium Ira (Atrovent 0.02% 0.5MG/2.5ML Neb) 0.5 mg Q4H PRN INH 02/20/17 13:00 03/22/17 12:59 Levalbuterol (Xopenex 0.63 Mg/ 3 Ml Neb) 0.63 mg Q4H PRN INH 02/20/17 13:00 03/22/17 12:59 02/21/17 02:16 0.63 MG Piperacillin Sod/ Tazobactam Sod 4.5 gm/Dextrose 120 ml @ 30 mls/hr Q8@0000,0800,1600 IV 02/20/17 16:00 02/27/17 15:59 02/21/17 08:12 30 MLS/HR Morphine Sulfate (Roxanol Oral Soln) 2.5 mg Q6 PRN PO 02/20/17 16:15 03/06/17 16:14 02/21/17 04:12 2.5 MG Senna (Senokot Tab) 8.6 mg BID PO 02/20/17 21:00 03/22/17 20:59 02/21/17 08:12 8.6 MG Docusate Sodium (coLACE CAP) 100 mg BID PO 02/20/17 21:00 03/22/17 20:59 02/21/17 08:12 100 MG Enteral Nutritional Formula (Boost) 1 can TID PO 02/21/17 14:00 03/23/17 13:59 Physical Exam Date Time Temp Pulse Resp B/P (MAP) Pulse Ox O2 Delivery O2 Flow Rate FiO2 02/21/17 12:09 37.0 88 17 149/85 (106) 97 Room Air 02/21/17 12:00 Nasal Cannula 4.5 02/21/17 08:00 Nasal Cannula 4.5 02/21/17 08:00 37.0 108 25 138/78 (98) 97 Nasal Cannula 5.0 02/21/17 07:28 103 16 96 Nasal Cannula 5.0 02/21/17 04:00 96 Nasal Cannula 5.0 02/21/17 03:34 37.0 113 20 121/77 (92) 96 Nasal Cannula 5.0 02/21/17 02:16 119 16 96 Nasal Cannula 5.0 02/21/17 00:22 37.0 114 22 131/71 (91) 95 Nasal Cannula 5.0 02/21/17 00:01 93 Nasal Cannula 5.0 02/20/17 20:00 93 Nasal Cannula 5.0 02/20/17 19:20 36.7 119 22 131/70 (90) 94 Nasal Cannula 5.0 11/29/17 19:04 118 16 93 Nasal Cannula 5.0 02/20/17 16:00 93 Nasal Cannula 5.0 02/20/17 15:16 37.0 116 27 145/92 (109) 93 Nasal Cannula 5.0 General Appearance: no apparent distress, + obese ENT: hearing grossly normal Neck: supple, no JVD Respiratory: no respiratory distress, no accessory muscle use, + decreased breath sounds, + crackles (bilateral bases) Cardiovascular: no edema, + tachycardia, + normal peripheral pulses Abdomen: normal bowel sounds, non tender, soft Neurologic/Psychiatric: alert, normal mood/affect, oriented x 3 Skin: normal color Laboratory Results Last 24 Hours Test 02/20/17 17:00 02/21/17 06:36 Urine Color YELLOW Urine Appearance CLEAR Urine pH 5.0 Urine Specific [place] 1.028 Urine Protein NEG Urine Glucose (UA) 3+ Urine Ketones 1+ Urine Occult Blood NEG Urine Nitrite NEG Urine Bilirubin NEG Urine Urobilinogen NEG Urine Leukocyte Esterase NEG Influenza Type A (RT-PCR) Neg for Influ A Influenza Type A Antigen Neg for Influ A Influenza Type B Antigen Neg for Influ B Influenza Type B (RT-PCR) Neg for Influ B White Blood Count 20.37 K/uL Red Blood Count 3.91 M/uL Hemoglobin 12.5 g/dL Hematocrit 39.3 % Mean Corpuscular Volume 100.5 fL Mean Corpuscular Hemoglobin 32.0 pg Mean Corpuscular Hemoglobin Concent 31.8 g/dl RDW Standard Deviation 47.5 fL RDW Coefficient of Variation 13.2 % Platelet Count 173 K/uL Mean Platelet Volume 11.3 fL Sodium Level 136 mmol/L Potassium Level 4.1 mmol/L Chloride Level 99 mmol/L Carbon Dioxide Level 32 mmol/L Anion Gap 5.0 mmol/L Blood Urea Nitrogen 16 mg/dl Creatinine 0.89 mg/dl Est Creatinine Clear Calc Drug Dose 52.2 ml/min Estimated GFR () 73.5 Estimated GFR (Non- 63.4 BUN/Creatinine Ratio 17.4 Random Glucose 230 mg/dl Calcium Level 9.3 mg/dl Assessment & Plan Problem list: SOB Cough/sputum LLL infiltrate- ?pneumonia COPD exacerbation Chronic pain Chronic chest pain Goals of care (Z51.5) Palliative care recs: -Patient would like to continue current medical management while in hospital. -Upon discharge, patient would like to go home with hospice and private pay caregivers. Patient and her sister both agreed that patient's son is burnt-out and needs help caring for patient. -Patient adamantly declines placement into SNF, even for short-term stay. -Continue Roxanol 2.5mg, but would increase to Q3h PRN pain or SOB. This is a very small dose and patient has been taking much more at home per her report. -Continue PRN lorazepam. -Patient is already level 5 DNR. She has a living will, I introduced idea of POLST and patient will think about it. -Concern that patient has a component of depression- she does not get out of bed , chooses to be incontinent at times, and made comments about liking the way her narcotics at home were making her more sedate. Please consider adding an anti-depressant while patient is here in hospital. Thank you kindly for this consult. I will follow.
[2017-02-21] MEDS: CHLORPH/HYDROCOD EXT REL LIQ 5ML UDP PO PRN (16:10)
--- NOTE | 2017-02-21 18:36 | Progress Note ---
Internal Med Progress Note Date of Service: Feb 21, 2017. Provider Documentation: SUBJECTIVE: Patient appears more well appearing compared to date of admission. Reports breathing is better. OBJECTIVE: General Appearance: breathing on nasal cannula, no acute distress Head: normocephalic, atraumatic Eyes: normal inspection, PERRL, EOMI, sclerae normal ENT: hearing grossly normal, pharynx normal Neck: supple, no JVD, trachea midline Respiratory/Chest: chest non-tender, no wheezing on auscultation, patient not taking deep breaths Cardiovascular: no murmur, + tachycardia Abdomen/GI: distended, +umbilical hernia, soft, diffuse tenderness to palpation entire abdomen without rebound or guarding Extremities/Musculoskelatal: no calf tenderness, normal capillary refill, non- tender Neurologic/Psych: alert, normal mood/affect, oriented x 3 Skin: normal color, warm/dry ASSESSMENT & PLAN: Pt is 77 y/o F with PMH severe end stage COPD and on hospice, HTN, RBBB, 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 Pt on hospice since 05/2016 for end stage COPD CXR 1. Emphysema. 2. Patchy airspace consolidation is seen at the left lung base. Correlate clinically for evidence of pneumonia/aspiration pneumonitis. Radiographic follow-up to resolution is recommended. 3. Cardiac pacemaker. There is no radiographic evidence of congestive failure COPD EXACERBATION - solumedrol IV, nebulizer treatments possible PNEUMONIA CXR: consolidation LLL. WBC: 17, however pt is on chronic sterids. negative procalcitonin. Pt afebrile. suspect CAP. does not appear septic at this time -continue zosyn -repeat chest X ray on 02/22/2017 HTN: continue amlodipine, cardizem Cardiovascular hx pacer. hx RBBB. Denies any worsening CP. Echo 2016 EF: 65-70% Echocardiogram 02/21/17: Sinus tachycardia was present during the echocardiogram. The valves were not well visualized, and the Doppler assessment of the valves is suboptimal due to technical limitations and patient position, as patient was apparently sitting upright for the study, unable to lie down. Unclear source of tachycardia, possibly from respiratory issues , will start low dose beta jose angel and monitor on telemetry Renal function, no acute kidney injury GERD: continue pepcid CHRONIC ABDOMINAL PAIN / history of hernia: stable, on pain medications Palliative care recs: -Patient would like to continue current medical management while in hospital. -Upon discharge, patient would like to go home with hospice and private pay caregivers. Patient and her sister both agreed that patient's son is burnt-out and needs help caring for patient. -Patient adamantly declines placement into SNF, even for short-term stay. -Continue Roxanol 2.5mg, but would increase to Q3h PRN pain or SOB. -Continue PRN lorazepam. -Patient is already level 5 DNR. She has a living will, patient will think about POLST DVT PROPHYLAXIS: heparin SQ Vital Signs: Date Time Temp Pulse Resp B/P (MAP) Pulse Ox O2 Delivery O2 Flow Rate FiO2 02/21/17 19:03 108 16 94 Nasal Cannula 4.0 02/21/17 16:00 Nasal Cannula 4.5 02/21/17 15:10 37.0 109 22 132/71 (91) 92 Nasal Cannula 4.0 02/21/17 14:48 107 16 94 Nasal Cannula 4.0 02/21/17 12:09 37.0 88 17 149/85 (106) 97 Room Air 02/21/17 12:00 Nasal Cannula 4.5 02/21/17 08:00 Nasal Cannula 4.5 02/21/17 08:00 37.0 108 25 138/78 (98) 97 Nasal Cannula 5.0 02/21/17 07:28 103 16 96 Nasal Cannula 5.0 02/21/17 04:00 96 Nasal Cannula 5.0 02/21/17 03:34 37.0 113 20 121/77 (92) 96 Nasal Cannula 5.0 02/21/17 02:16 119 16 96 Nasal Cannula 5.0 02/21/17 00:22 37.0 114 22 131/71 (91) 95 Nasal Cannula 5.0 02/21/17 00:01 93 Nasal Cannula 5.0 02/20/17 20:00 93 Nasal Cannula 5.0 02/20/17 19:20 36.7 119 22 131/70 (90) 94 Nasal Cannula 5.0 Lab Results: Results Past 24 Hours Test 02/21/17 06:36 Range/Units White Blood Count 20.37 4.8-10.8 K/uL Red Blood Count 3.91 4.2-5.4 M/uL Hemoglobin 12.5 12.0-16.0 g/dL Hematocrit 39.3 37-47 % Mean Corpuscular Volume 100.5 80-100 fL Mean Corpuscular Hemoglobin 32.0 25-34 pg Mean Corpuscular Hemoglobin Concent 31.8 32-36 g/dl RDW Standard Deviation 47.5 36.4-46.3 fL RDW Coefficient of Variation 13.2 11.5-14.5 % Platelet Count 173 130-400 K/uL Mean Platelet Volume 11.3 7.4-10.4 fL Sodium Level 136 136-145 mmol/L Potassium Level 4.1 3.5-5.1 mmol/L Chloride Level 99 98-107 mmol/L Carbon Dioxide Level 32 21-32 mmol/L Anion Gap 5.0 3-11 mmol/L Blood Urea Nitrogen 16 7-18 mg/dl Creatinine 0.89 0.60-1.20 mg/dl Est Creatinine Clear Calc Drug Dose 52.2 ml/min Estimated GFR () 73.5 Estimated GFR (Non- 63.4 BUN/Creatinine Ratio 17.4 10-20 Random Glucose 230 70-99 mg/dl Calcium Level 9.3 8.5-10.1 mg/dl Microbiology Results 02/21/17 Gram Stain, Received Pending 02/21/17 Sputum Culture, Received Pending
[2017-02-21] MEDS ORDERED: METOPROLOL TARTRATE 25 MG TAB PO ONE (19:15)
[2017-02-21] MEDS: METOPROLOL TARTRATE 25 MG TAB PO SCH (21:21)
[2017-02-22] VITALS (10 sets, daily range): BP systolic 124–150; BP diastolic 65–89; PULSE 85–117; TEMP 36.6–37; O2SAT 92–98
[2017-02-22] MEDS: IPRATROPIUM BROMIDE NEB SOLN 0.02% 2.5 ML VIAL INH SCH ×4 (01:35→19:18)
[2017-02-22] MEDS: METHYLPREDNISOLONE IV 40 MG in SYRINGE 0 ML IV SCH ×3 (01:46→19:54)
[2017-02-22] MEDS: CHLORPH/HYDROCOD EXT REL LIQ 5ML UDP PO PRN ×2 (03:18→20:03)
[2017-02-22] MEDS: LORAZEPAM 0.5 MG TAB PO PRN ×2 (03:28→14:25)
[2017-02-22] MEDS: MoRPHine SULFATE 2.5 MG/0.125 ML UDP PO PRN ×2 (03:43→14:13)
[2017-02-22] MEDS: HEPARIN SOD 5000 UNIT/0.5 ML CARP SQ SCH ×3 (06:08→20:06)
[2017-02-22 06:12] LABS: HEMATOCRIT 40.4 % (37-47); MEAN CELL VOLUME 100.2 fL (80-100); MEAN CORPUSCULAR HEMOGLOBIN 31.5 pg (25-34); MEAN CORPUSCULAR HGB CONC 31.4 g/dl (32-36); MEAN PLATELET VOLUME 11.5 fL (7.4-10.4); PLATELET COUNT 166 K/uL (130-400); RED BLOOD COUNT 4.03 M/uL (4.2-5.4); WHITE BLOOD COUNT 25.27 K/uL (4.8-10.8)
[2017-02-22 06:43] LABS: BASO ABS # 0.01 K/uL (0-0.2); COMPLETE YES; HYPERSEGMENTED POLYS 1+; IG% 0.6 %; LYMPH % 2.3 %; LYMPH ABS # 0.59 K/uL (1.2-3.4); MONO % 2.3 %; NEUT % 94.8 %; VACUOLIZATION OCCASIONAL
[2017-02-22 06:48] LABS: BUN/CREATININE RATIO 22.6 (10-20); CALCIUM 9.4 mg/dl (8.5-10.1); CREATININE 1.01 mg/dl (0.60-1.20); MAGNESIUM 2.2 mg/dl (1.8-2.4)
[2017-02-22 06:51] LABS: ALB/GLOB RATIO 0.8 (0.9-2)
[2017-02-22] MEDS: DILTIAZEM HCL 60 MG TAB PO SCH ×3 (07:38→20:04)
[2017-02-22] MEDS: FAMOTIDINE 20 MG TAB PO SCH (07:38)
[2017-02-22] MEDS: DOCUSATE SODIUM 100 MG CAP PO SCH ×2 (07:38→20:05)
[2017-02-22] MEDS: BOOST VANILLA PO SCH ×6 (07:39→20:07)
[2017-02-22] MEDS: AMLODIPINE BESYLATE 5 MG TAB PO SCH (07:39)
[2017-02-22] MEDS: PIPERACILL/TAZOBAC IV 4.5 GM in DEXTROSE 5% 100ML IV SCH ×2 (07:42→16:30)
[2017-02-22] MEDS: SENNA 8.6 MG TAB PO SCH ×2 (07:42→20:06)
[2017-02-22] MEDS: METOPROLOL TARTRATE 25 MG TAB PO SCH ×2 (07:42→20:05)
[2017-02-22] MEDS: ACETAMINOPHEN 325 MG TAB PO PRN ×2 (07:51→20:03)
[2017-02-22] MEDS: LEVALBUTEROL 0.63MG/3 ML NEB INH SCH ×3 (08:45→19:18)
--- NOTE | 2017-02-22 08:54 | PULMONARY PROGRESS NOTE ---
DATE: 02/22/2017 TIME: 8:00 a.m. SUBJECTIVE: The patient is slightly better than when she was admitted. She estimates at 10-12%. She did awaken during the nighttime with an episode of cough and shortness of breath. This is typical for what happens with her at home. She gets very anxious when this happens. She states when this occurs at home she takes some Ativan, pain medicine, and cough medicine, and hot tea. She is fairly settled down. Her heart rate does go up rapidly when she has any distress. She is not expectorating any significant mucus. OBJECTIVE: GENERAL: The patient was comfortable at rest. VITAL SIGNS: Temperature was 37 degrees. Her maximum temperature this hospital stay has been 37.3. ENT: Unchanged. HEART: Heart rate when I first examined her was 100 per minute. This increased to 120 when she began coughing as I was asking her to take deep breaths. Her blood pressure is 131/75. The cardiac rhythm is regular. LUNGS: The breath sounds remained diminished, especially posteriorly. She has a few scattered rales. Her respiratory rate was 22 breaths per minute. Her oxygen saturation which was checked by myself after she had the coughing spell from taking deep breaths was down to 86% on 4 liter nasal cannula. ABDOMEN: Obese. It remains somewhat tender to palpation diffusely. EXTREMITIES: Showed no cyanosis or clubbing and she has trace edema. LABORATORY DATA: White count this morning is 25.27. This has increased steadily since admission. This may be because of steroids versus the pneumonia itself. There has been an increase in the neutrophil percent up to 94.8 as of this morning. Electrolytes show sodium 137, potassium 4.0, chloride 98, bicarbonate 32. BUN is 23 with a creatinine of 1.01. Blood cultures have shown no growth. No sputum was obtained thus far. IMPRESSION: 1. Acute on chronic respiratory failure with hypoxia and hypercarbia. 2. Left lower lobe infiltrate. 3. Chronic obstructive pulmonary disease -- severe. 4. Chronic pain syndrome. COMMENTS AND RECOMMENDATIONS: I will repeat a portable chest x-ray for tomorrow morning. Whether this will be able to give a film with good technique remains to be seen. Her white count is rising, but she does not seem to be septic. I believe she is modestly improved since admission. It is unclear how much we are going to be able to improve her. I think at this point it is reasonable to cut back her methylprednisolone to q. 12 hours. Would continue with her other medicines as present.
--- NOTE | 2017-02-22 09:31 | DIAGNOSTIC IMAGING REPORT ---
CHEST ONE VIEW PORTABLE HISTORY: 77 years-old Female SOB, R/O PNEUMONIA acute shortness of breath COMPARISON: Chest radiograph 02/20/2017 TECHNIQUE: Portable upright AP view of the chest FINDINGS: Cardiac silhouette is mildly enlarged, unchanged. Mild pulmonary vascular congestion without overt pulmonary edema. Atherosclerosis of the aorta. Left pectoral pacer is noted with leads unchanged. Emphysematous changes are noted without pneumothorax. No right pleural effusion. Persistent basilar consolidation is present on the left with mild blunting of the costophrenic angle which may reflect trace effusion. Linear subsegmental opacities are also present within the lung bases suggesting areas of atelectasis/scarring. The bones are intact. Degenerative changes are seen within the shoulders and spine. IMPRESSION: 1. Persistent left basilar consolidation suspicious for pneumonia and/or aspiration pneumonitis. 2. Mild cardiomegaly without overt pulmonary edema. 3. Emphysema. The above report was generated using voice recognition software. It may contain grammatical, syntax or spelling errors. Electronically signed by: Vernon Reyna M.D. 02/22/2017 9:29 AM Dictated Date/Time: 02/22/2017 9:27 AM
--- NOTE | 2017-02-22 18:49 | Progress Note ---
Internal Med Progress Note Date of Service: Feb 22, 2017. Provider Documentation: SUBJECTIVE: Patient appears more well appearing compared to date of admission. Reports breathing is better. OBJECTIVE: General Appearance: breathing on nasal cannula, no acute distress Head: normocephalic, atraumatic Eyes: normal inspection, PERRL, EOMI, sclerae normal ENT: hearing grossly normal, pharynx normal Neck: supple, no JVD, trachea midline Respiratory/Chest: chest non-tender, no wheezing on auscultation, patient not taking deep breaths Cardiovascular: no murmur, + tachycardia Abdomen/GI: distended, +umbilical hernia, soft, diffuse tenderness to palpation entire abdomen without rebound or guarding Extremities/Musculoskelatal: no calf tenderness, normal capillary refill, non- tender Neurologic/Psych: alert, normal mood/affect, oriented x 3 Skin: normal color, warm/dry ASSESSMENT & PLAN: Pt is 77 y/o F with PMH severe end stage COPD and on hospice, HTN, RBBB, 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 Pt on hospice since 05/2016 for end stage COPD CXR on admission 1. Emphysema. 2. Patchy airspace consolidation is seen at the left lung base. Correlate clinically for evidence of pneumonia/aspiration pneumonitis. 3. Cardiac pacemaker. There is no radiographic evidence of congestive failure COPD EXACERBATION - improving? - solumedrol IV, nebulizer treatments -pulmonary service reducing solumedrol frequency possible PNEUMONIA CXR: consolidation LLL. Leukocytosis on chronic sterids. negative procalcitonin. Pt afebrile. suspect CAP. does not appear septic at this time -continue zosyn -repeat chest X ray on 02/22/2017 still showing infiltrates and pulmonary service ordered CXR for 02/23/17 HTN: continue amlodipine, cardizem Cardiovascular hx pacer. hx RBBB. Denies any worsening CP. Echo 2015 EF: 65-70% Echocardiogram 02/21/17: Sinus tachycardia was present during the echocardiogram. The valves were not well visualized, and the Doppler assessment of the valves is suboptimal due to technical limitations and patient position, as patient was apparently sitting upright for the study, unable to lie down. Unclear source of tachycardia, possibly from respiratory issues , patient was started on low dose beta blockers on 02/21/17 and heart rate is less tachycardic on telemetry Renal function, no acute kidney injury GERD: continue pepcid CHRONIC ABDOMINAL PAIN / history of hernia: stable, on pain medications Palliative care recs 02/21/17: -Patient would like to continue current medical management while in hospital. -Upon discharge, patient would like to go home with hospice and private pay caregivers. Patient and her sister both agreed that patient's son is burnt-out and needs help caring for patient. -Patient adamantly declines placement into SNF, even for short-term stay. -Continue Roxanol 2.5mg, but would increase to Q3h PRN pain or SOB. -Continue PRN lorazepam. -Patient is already level 5 DNR. She has a living will, patient will think about POLST Monitor for withdrawal symptoms as patient with chronic pain syndrome and takes narcotics and benzodiazepines at home DVT PROPHYLAXIS: heparin SQ Vital Signs: Date Time Temp Pulse Resp B/P (MAP) Pulse Ox O2 Delivery O2 Flow Rate FiO2 02/22/17 16:00 Nasal Cannula 4.0 02/22/17 15:39 36.9 108 24 147/89 (108) 93 Nasal Cannula 4.0 02/22/17 13:58 106 14 92 Nasal Cannula 4.0 02/22/17 12:00 Nasal Cannula 4.0 02/22/17 11:36 36.9 85 20 124/65 (84) 96 Nasal Cannula 4.0 02/22/17 08:00 96 Nasal Cannula 4.0 02/22/17 07:15 100 15 96 Nasal Cannula 4.0 02/22/17 07:00 37.0 93 20 131/75 (93) 98 Nasal Cannula 4.0 02/22/17 04:00 Nasal Cannula 4.5 02/22/17 03:15 36.6 117 30 150/89 (109) 92 Nasal Cannula 4.0 02/22/17 00:00 Nasal Cannula 4.5 02/21/17 23:20 36.5 83 20 136/92 (107) 97 Nasal Cannula 4.0 02/21/17 20:00 Nasal Cannula 4.5 02/21/17 19:03 108 16 94 Nasal Cannula 4.0 Lab Results: Results Past 24 Hours Test 02/22/17 05:58 Range/Units White Blood Count 25.27 4.8-10.8 K/uL Red Blood Count 4.03 4.2-5.4 M/uL Hemoglobin 12.7 12.0-16.0 g/dL Hematocrit 40.4 37-47 % Mean Corpuscular Volume 100.2 80-100 fL Mean Corpuscular Hemoglobin 31.5 25-34 pg Mean Corpuscular Hemoglobin Concent 31.4 32-36 g/dl Platelet Count 166 130-400 K/uL Mean Platelet Volume 11.5 7.4-10.4 fL Neutrophils (%) (Auto) 94.8 % Lymphocytes (%) (Auto) 2.3 % Monocytes (%) (Auto) 2.3 % Eosinophils (%) (Auto) 0.0 % Basophils (%) (Auto) 0.0 % Neutrophils # (Auto) 23.93 1.4-6.5 K/uL Lymphocytes # (Auto) 0.59 1.2-3.4 K/uL Monocytes # (Auto) 0.59 0.11-0.59 K/uL Eosinophils # (Auto) 0.00 0-0.5 K/uL Basophils # (Auto) 0.01 0-0.2 K/uL RDW Standard Deviation 47.9 36.4-46.3 fL RDW Coefficient of Variation 13.2 11.5-14.5 % Immature Granulocyte % (Auto) 0.6 % Immature Granulocyte # (Auto) 0.15 0.00-0.02 K/uL Hypersegmented Polys 1+ Toxic Vacuolation OCCASIONAL Sodium Level 137 136-145 mmol/L Potassium Level 4.0 3.5-5.1 mmol/L Chloride Level 98 98-107 mmol/L Carbon Dioxide Level 32 21-32 mmol/L Anion Gap 7.0 3-11 mmol/L Blood Urea Nitrogen 23 7-18 mg/dl Creatinine 1.01 0.60-1.20 mg/dl Est Creatinine Clear Calc Drug Dose 46.2 ml/min Estimated GFR () 63.1 Estimated GFR (Non- 54.4 BUN/Creatinine Ratio 22.6 10-20 Random Glucose 217 70-99 mg/dl Calcium Level 9.4 8.5-10.1 mg/dl Magnesium Level 2.2 1.8-2.4 mg/dl Total Bilirubin 0.3 0.2-1 mg/dl Aspartate Amino Transf (AST/SGOT) 14 15-37 U/L Alanine Aminotransferase (ALT/SGPT) 16 12-78 U/L Alkaline Phosphatase 68 45-117 U/L Total Protein 6.8 6.4-8.2 gm/dl Albumin 3.1 3.4-5.0 gm/dl Globulin 3.7 2.5-4.0 gm/dl Albumin/Globulin Ratio 0.8 0.9-2
[2017-02-23] VITALS (8 sets, daily range): BP systolic 138–150; BP diastolic 64–93; PULSE 84–102; TEMP 36.5–37; O2SAT 93–98
[2017-02-23] MEDS: PIPERACILL/TAZOBAC IV 4.5 GM in DEXTROSE 5% 100ML IV SCH ×3 (00:20→15:20)
[2017-02-23] MEDS: LEVALBUTEROL 0.63MG/3 ML NEB INH SCH ×2 (01:58→07:00)
[2017-02-23] MEDS: IPRATROPIUM BROMIDE NEB SOLN 0.02% 2.5 ML VIAL INH SCH ×2 (01:58→07:00)
[2017-02-23] MEDS: LORAZEPAM 0.5 MG TAB PO PRN ×2 (03:27→18:07)
[2017-02-23] MEDS: HEPARIN SOD 5000 UNIT/0.5 ML CARP SQ SCH ×3 (06:00→20:56)
[2017-02-23 06:23] LABS: HEMATOCRIT 39.3 % (37-47); MEAN CELL VOLUME 99.5 fL (80-100); MEAN CORPUSCULAR HEMOGLOBIN 31.6 pg (25-34); MEAN CORPUSCULAR HGB CONC 31.8 g/dl (32-36); MEAN PLATELET VOLUME 11.7 fL (7.4-10.4); PLATELET COUNT 178 K/uL (130-400); RED BLOOD COUNT 3.95 M/uL (4.2-5.4); WHITE BLOOD COUNT 18.26 K/uL (4.8-10.8)
[2017-02-23 06:55] LABS: ALB/GLOB RATIO 0.8 (0.9-2); BUN/CREATININE RATIO 28.2 (10-20); CALCIUM 9.1 mg/dl (8.5-10.1); CREATININE 1.06 mg/dl (0.60-1.20); MAGNESIUM 2.4 mg/dl (1.8-2.4); POTASSIUM 3.8 mmol/L (3.5-5.1)
--- NOTE | 2017-02-23 07:44 | DIAGNOSTIC IMAGING REPORT ---
CHEST ONE VIEW PORTABLE HISTORY: 77 years-old Female f/u LLL infiltrate follow-up study in a patient with left lower lobe pneumonia COMPARISON: Chest radiograph 02/22/2017 TECHNIQUE: Portable upright AP view of the chest FINDINGS: Cardiac silhouette is mildly enlarged, unchanged. Pulmonary vascular congestion without overt pulmonary edema. Atherosclerosis of the aorta. Left pectoral pacer is unchanged. Emphysematous changes are again seen without pneumothorax. Linear subsegmental bibasilar opacities redemonstrated compatible with scarring/atelectasis. Persistent left basilar consolidation is noted with blunting of left costophrenic angle, unchanged. Bones of the chest are grossly intact. IMPRESSION: 1. Unchanged consolidative opacities of the left lower lobe with possible trace effusion. 2. Additional linear subsegmental bibasilar opacities suggest atelectasis/scarring. 3. Emphysema. The above report was generated using voice recognition software. It may contain grammatical, syntax or spelling errors. Electronically signed by: Vernon Reyna M.D. 02/23/2017 7:42 AM Dictated Date/Time: 02/23/2017 7:40 AM
[2017-02-23] MEDS: SENNA 8.6 MG TAB PO SCH ×2 (08:26→20:53)
[2017-02-23] MEDS: BOOST VANILLA PO SCH ×6 (08:26→20:53)
[2017-02-23] MEDS: METOPROLOL TARTRATE 25 MG TAB PO SCH ×2 (08:26→20:54)
[2017-02-23] MEDS: METHYLPREDNISOLONE IV 40 MG in SYRINGE 0 ML IV SCH ×2 (08:26→20:53)
[2017-02-23] MEDS: DOCUSATE SODIUM 100 MG CAP PO SCH ×2 (08:27→20:54)
[2017-02-23] MEDS: DILTIAZEM HCL 60 MG TAB PO SCH ×3 (08:27→20:54)
[2017-02-23] MEDS: FAMOTIDINE 20 MG TAB PO SCH (08:28)
[2017-02-23] MEDS: AMLODIPINE BESYLATE 5 MG TAB PO SCH (08:28)
[2017-02-23] MEDS: ACETAMINOPHEN 325 MG TAB PO PRN (15:18)
--- NOTE | 2017-02-23 17:27 | Progress Note ---
Internal Med Progress Note Date of Service: Feb 23, 2017. Provider Documentation: SUBJECTIVE: Patient appears more well appearing compared to date of admission. Reports breathing is better. OBJECTIVE: General Appearance: breathing on nasal cannula, no acute distress Head: normocephalic, atraumatic Eyes: normal inspection, EOMI, sclerae normal ENT: hearing grossly normal, pharynx normal Neck: supple, no JVD, trachea midline Respiratory/Chest: chest non-tender, no wheezing on auscultation, patient taking deeper breaths Cardiovascular: no murmur, + tachycardia Abdomen/GI: distended, +umbilical hernia, soft, diffuse tenderness to palpation entire abdomen without rebound or guarding Extremities/Musculoskelatal: no calf tenderness, normal capillary refill, non- tender Neurologic/Psych: alert, normal mood/affect, oriented x 3 Skin: normal color, warm/dry ASSESSMENT & PLAN: Pt is 77 y/o F with PMH severe end stage COPD and on hospice, HTN, RBBB, 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 Pt on hospice since 05/2016 for end stage COPD CXR on 02/23/17 1. Unchanged consolidative opacities of the left lower lobe with possible trace effusion. 2. Additional linear subsegmental bibasilar opacities suggest atelectasis/ scarring. 3. Emphysema Sputum Culture 02/21/17: negative Blood culture 02/20/17: negative MRSA nasal 02/20/17: negative Procalcitonin 02/20/17: negative COPD EXACERBATION - solumedrol IV, nebulizer treatments -pulmonary service has been reducing solumedrol frequency possible PNEUMONIA CXR: consolidation LLL. Leukocytosis on chronic sterids. negative procalcitonin. Zosyn started empirically on 02/20/17 to be stopped on 02/23/17 as pneumonia unlikely HTN: continue amlodipine, cardizem Cardiovascular hx pacer. hx RBBB. Denies any worsening CP. Echo 2015 EF: 65-70% Echocardiogram 02/21/17: Sinus tachycardia was present during the echocardiogram. The valves were not well visualized, and the Doppler assessment of the valves is suboptimal due to technical limitations and patient position, as patient was apparently sitting upright for the study, unable to lie down. Unclear source of tachycardia, possibly from respiratory issues , patient was started on low dose beta blockers on 02/21/17 and heart rate is less tachycardic on telemetry Renal function, no acute kidney injury GERD: continue pepcid CHRONIC ABDOMINAL PAIN / history of hernia: stable, on pain medications Palliative care recs 02/21/17: -Patient would like to continue current medical management while in hospital. -Upon discharge, patient would like to go home with hospice and private pay caregivers. Patient and her sister both agreed that patient's son is burnt-out and needs help caring for patient. -Patient adamantly declines placement into SNF, even for short-term stay. -Continue Roxanol 2.5mg, but would increase to Q3h PRN pain or SOB. -Continue PRN lorazepam. -Patient is already level 5 DNR. She has a living will, patient will think about POLST Monitor for withdrawal symptoms as patient with chronic pain syndrome and takes narcotics and benzodiazepines at home DVT PROPHYLAXIS: heparin SQ Disposition: patient clinically improving. Obtain PT/OT for discharge evaluation after hospital stay Vital Signs: Date Time Temp Pulse Resp B/P (MAP) Pulse Ox O2 Delivery O2 Flow Rate FiO2 02/23/17 16:00 Nasal Cannula 4.0 02/23/17 15:55 36.9 102 20 150/69 (96) 95 Nasal Cannula 4.0 Humidified Oxygen 02/23/17 14:30 90 16 96 Nasal Cannula 4.0 02/23/17 12:00 Nasal Cannula 4.0 02/23/17 11:35 36.9 84 20 142/76 (98) 93 Nasal Cannula 4.0 Humidified Oxygen 02/23/17 08:00 Nasal Cannula 4.0 02/23/17 07:29 36.5 95 23 138/64 (88) 94 Nasal Cannula 4.0 Humidified Oxygen 02/23/17 07:01 93 16 97 Nasal Cannula 4.0 02/23/17 04:02 Nasal Cannula 4.0 02/23/17 03:48 37.0 102 22 142/93 (109) 93 Nasal Cannula 3.5 02/23/17 01:58 90 16 98 Nasal Cannula 4.0 02/23/17 00:00 Nasal Cannula 4.0 02/22/17 23:45 36.8 85 16 146/77 (100) 95 Nasal Cannula 3.5 02/22/17 20:00 Nasal Cannula 4.0 02/22/17 19:31 36.9 106 24 139/73 (95) 94 Room Air 02/22/17 19:18 110 16 97 Nasal Cannula 4.0 Lab Results: Results Past 24 Hours Test 02/23/17 06:03 Range/Units White Blood Count 18.26 4.8-10.8 K/uL Red Blood Count 3.95 4.2-5.4 M/uL Hemoglobin 12.5 12.0-16.0 g/dL Hematocrit 39.3 37-47 % Mean Corpuscular Volume 99.5 80-100 fL Mean Corpuscular Hemoglobin 31.6 25-34 pg Mean Corpuscular Hemoglobin Concent 31.8 32-36 g/dl RDW Standard Deviation 46.8 36.4-46.3 fL RDW Coefficient of Variation 12.9 11.5-14.5 % Platelet Count 178 130-400 K/uL Mean Platelet Volume 11.7 7.4-10.4 fL Sodium Level 138 136-145 mmol/L Potassium Level 3.8 3.5-5.1 mmol/L Chloride Level 100 98-107 mmol/L Carbon Dioxide Level 33 21-32 mmol/L Anion Gap 5.0 3-11 mmol/L Blood Urea Nitrogen 30 7-18 mg/dl Creatinine 1.06 0.60-1.20 mg/dl Est Creatinine Clear Calc Drug Dose 44.5 ml/min Estimated GFR () 59.5 Estimated GFR (Non- 51.3 BUN/Creatinine Ratio 28.2 10-20 Random Glucose 262 70-99 mg/dl Calcium Level 9.1 8.5-10.1 mg/dl Magnesium Level 2.4 1.8-2.4 mg/dl Total Bilirubin 0.4 0.2-1 mg/dl Aspartate Amino Transf (AST/SGOT) 14 15-37 U/L Alanine Aminotransferase (ALT/SGPT) 19 12-78 U/L Alkaline Phosphatase 62 45-117 U/L Total Protein 6.4 6.4-8.2 gm/dl Albumin 2.9 3.4-5.0 gm/dl Globulin 3.5 2.5-4.0 gm/dl Albumin/Globulin Ratio 0.8 0.9-2
[2017-02-23] MEDS: LEValbuterol HFA 15GM INHALER INH SCH (18:00)
[2017-02-23] MEDS: IPRATROPIUM BROMIDE HFA INHALER INH SCH (18:00)
[2017-02-23] MEDS: MoRPHine SULFATE 2.5 MG/0.125 ML UDP PO PRN (18:13)
[2017-02-23] MEDS: CHLORPH/HYDROCOD EXT REL LIQ 5ML UDP PO PRN (20:53)
[2017-02-24] VITALS (9 sets, daily range): BP systolic 136–187; BP diastolic 73–98; PULSE 22–103; TEMP 36.4–36.8; O2SAT 94–98
[2017-02-24] MEDS: LEValbuterol HFA 15GM INHALER INH SCH ×4 (04:37→18:00)
[2017-02-24] MEDS: HEPARIN SOD 5000 UNIT/0.5 ML CARP SQ SCH (04:38)
[2017-02-24] MEDS: IPRATROPIUM BROMIDE HFA INHALER INH SCH ×4 (04:38→18:00)
[2017-02-24] MEDS: MoRPHine SULFATE 2.5 MG/0.125 ML UDP PO PRN ×3 (04:41→20:50)
[2017-02-24] MEDS: LORAZEPAM 0.5 MG TAB PO PRN ×3 (06:11→20:49)
[2017-02-24] MEDS: ACETAMINOPHEN 325 MG TAB PO PRN (07:03)
[2017-02-24] MEDS: BOOST VANILLA PO SCH ×6 (08:19→20:49)
[2017-02-24] MEDS: SENNA 8.6 MG TAB PO SCH ×2 (08:20→20:52)
[2017-02-24] MEDS: METOPROLOL TARTRATE 25 MG TAB PO SCH ×2 (08:20→20:52)
[2017-02-24] MEDS: AMLODIPINE BESYLATE 5 MG TAB PO SCH (08:20)
[2017-02-24] MEDS: FAMOTIDINE 20 MG TAB PO SCH (08:20)
[2017-02-24] MEDS: DILTIAZEM HCL 60 MG TAB PO SCH ×3 (08:23→20:50)
[2017-02-24] MEDS: DOCUSATE SODIUM 100 MG CAP PO SCH ×2 (08:23→20:51)
--- NOTE | 2017-02-24 08:31 | PULMONARY PROGRESS NOTE ---
DATE: 02/24/2017 TIME: 7:20 a.m. SUBJECTIVE: The patient complains of having severe pain with urination. This began last night. She describes it as burning. She says she has been very uncomfortable with this. Her breathing is generally improved. Overall, she feels much less short of breath than she did previously. She is not coughing much. OBJECTIVE: GENERAL: The patient from a breathing perspective appeared comfortable. She said she was uncomfortable and looked uncomfortable with pain in the bladder area. VITAL SIGNS: Temperature is 36.7. The heart rate is 82 per minute. The rhythm is regular. Blood pressure is 145/76. LUNGS: Auscultation of the lung thomas reveals mild rales. Her aeration is improved compared with prior. Saturation was 96% on 4 liters. She seemed to be able to move around easier than before in terms of sitting forward. LABORATORY DATA: No labs are available from today. IMPRESSIONS: 1. [id number] respiratory failure with hypoxia and hypercarbia. 2. Left lower lobe infiltrate. 3. Chronic obstructive pulmonary disease -- severe. 4. Chronic pain syndrome. 5. Rule out urinary tract infection. COMMENTS AND RECOMMENDATIONS: The patient is having urinary symptoms. I will order a UA and SETTER HELPER. She may be a candidate for Pyridium. I will defer this to the hospitalist team. Her respiratory status has improved. She did have an x-ray of the chest yesterday that showed no change in the left lower lobe infiltrate. It is difficult to determine if this is acute or chronic. Her antibiotics were stopped yesterday. Obviously, if she would spike a fever, I would reconsider the possibility of whether she needs further antibiotics or not. I believe the methylprednisolone could be changed to prednisone. Respiratory status is fairly stable. I will sign off for now. We will see her again if requested.
[2017-02-24] MEDS ORDERED: ALUMINUM/MAGNESIUM/SIMETH (MAALOX MAX) 30 ML UDC PO STA (09:19)
[2017-02-24] MEDS ORDERED: ALUMINUM/MAGNESIUM/SIMETH (MAALOX MAX) 30 ML UDC PO PRN (09:30)
--- NOTE | 2017-02-24 14:45 | DIAGNOSTIC IMAGING REPORT ---
KUB CLINICAL HISTORY: Generalized abdominal pain. FINDINGS: AP, portable, supine abdominal radiograph is compared to study dated 05/03/15 and correlated with abdominal CT dated 06/04/2014. There is a nonobstructed abdominal bowel gas pattern. Mild colonic fecal retention is observed. No evidence of intraperitoneal free air is seen on this supine view. There are no abnormal abdominal calcifications. Phleboliths are noted in the left hemipelvis. The skeletal structures are osteopenic. The bony structures are grossly intact. IMPRESSION: Nonobstructed abdominal bowel gas pattern. Electronically signed by: Contreras Thomas M.D. 02/24/2017 2:44 PM Dictated Date/Time: 02/24/2017 2:43 PM
[2017-02-24] MEDS ORDERED: PHENAZOPYRIDINE HCL 100 MG TAB PO PRN (15:00)
--- NOTE | 2017-02-24 15:11 | Progress Note ---
Internal Med Progress Note Date of Service: Feb 24, 2017. Provider Documentation: SUBJECTIVE: This AM patient was very concerned about using the bathroom. However, she was able to make bowel movement. She reports that feels her breathing is much better compared to before. OBJECTIVE: General Appearance: breathing on nasal cannula, no acute distress Head: normocephalic, atraumatic Eyes: normal inspection, EOMI, sclerae normal ENT: hearing grossly normal, pharynx normal Neck: supple, no JVD, trachea midline Respiratory/Chest: chest non-tender, no wheezing on auscultation, patient taking deeper breaths Cardiovascular: no murmur, + tachycardia Abdomen/GI: distended, +umbilical hernia, soft, diffuse tenderness to palpation entire abdomen without rebound or guarding Extremities/Musculoskelatal: no calf tenderness, normal capillary refill, non- tender Neurologic/Psych: alert, normal mood/affect, oriented x 3 Skin: normal color, warm/dry ASSESSMENT & PLAN: Pt is 77 y/o F with PMH severe end stage COPD and on hospice, HTN, RBBB, 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 Pt on hospice since 05/2016 for end stage COPD CXR on 02/23/17 1. Unchanged consolidative opacities of the left lower lobe with possible trace effusion. 2. Additional linear subsegmental bibasilar opacities suggest atelectasis/ scarring. 3. Emphysema Sputum Culture 02/21/17: negative Blood culture 02/20/17: negative MRSA nasal 02/20/17: negative Procalcitonin 02/20/17: negative COPD EXACERBATION CXR: consolidation LLL. Leukocytosis on chronic sterids. negative procalcitonin. Zosyn started empirically on 02/20/17 to be stopped on 02/23/17 as pneumonia unlikely - solumedrol IV, nebulizer treatments have been given -pulmonary service has changed solumedrol IV to oral prednisone HTN: continue amlodipine, cardizem Cardiovascular hx pacer. hx RBBB. Denies any worsening CP. Echo 2015 EF: 65-70% Echocardiogram 02/21/17: Sinus tachycardia was present during the echocardiogram. The valves were not well visualized, and the Doppler assessment of the valves is suboptimal due to technical limitations and patient position, as patient was apparently sitting upright for the study, unable to lie down. Unclear source of tachycardia, possibly from respiratory issues , patient was started on low dose beta blockers on 02/21/17 and heart rate is less tachycardic on telemetry Renal function, no acute kidney injury GERD: continue pepcid, simetheicone, maalox CHRONIC ABDOMINAL PAIN / history of hernia: stable, on pain medications KUB 02/24/17: compared to study dated 05/03/15 and correlated with abdominal CT dated 06/04/2014. There is a nonobstructed abdominal bowel gas pattern. Mild colonic fecal retention is observed. No evidence of intraperitoneal free air is seen on this supine view. There are no abnormal abdominal calcifications. Phleboliths are noted in the left hemipelvis. The skeletal structures are osteopenic. The bony structures are grossly intact. Palliative care recs 02/21/17: -Patient would like to continue current medical management while in hospital. -Upon discharge, patient would like to go home with hospice and private pay caregivers. Patient and her sister both agreed that patient's son is burnt-out and needs help caring for patient. -Patient adamantly declines placement into SNF, even for short-term stay. -Continue Roxanol 2.5mg, but would increase to Q3h PRN pain or SOB. -Continue PRN lorazepam. -Patient is already level 5 DNR. She has a living will, patient will think about POLST DVT PROPHYLAXIS: heparin SQ Disposition: patient clinically improving. Patient transferred from telemetry floor to medical/surgical floor. Will need case management discharge planning. Likely can be discharged from the hospital on 02/25/17 or 02/26/17 unless there are new changes in her health Vital Signs: Date Time Temp Pulse Resp B/P (MAP) Pulse Ox O2 Delivery O2 Flow Rate FiO2 02/24/17 10:27 36.6 88 20 155/85 (108) 95 Room Air 02/24/17 10:21 36.7 103 16 94 4.0 02/24/17 08:42 36.7 103 16 162/92 (115) 94 Nasal Cannula 4.0 Humidified Oxygen 02/24/17 08:00 Nasal Cannula 4.0 02/24/17 04:05 36.7 82 22 145/76 (99) 96 Nasal Cannula 4.0 02/24/17 04:02 Nasal Cannula 4.0 02/24/17 00:21 36.8 72 22 148/77 (100) 95 Room Air 4.0 02/24/17 00:00 Nasal Cannula 4.0 02/23/17 20:00 Nasal Cannula 4.0 02/23/17 19:30 36.7 96 22 138/83 (101) 95 Nasal Cannula 4.0 Humidified Oxygen 02/23/17 16:00 Nasal Cannula 4.0 02/23/17 15:55 36.9 102 20 150/69 (96) 95 Nasal Cannula 4.0 Humidified Oxygen
[2017-02-25] VITALS: O2SAT 98
[2017-02-25] MEDS: CHLORPH/HYDROCOD EXT REL LIQ 5ML UDP PO PRN ×3 (05:31→23:32)
[2017-02-25] MEDS: LORAZEPAM 0.5 MG TAB PO PRN ×3 (05:37→23:32)
[2017-02-25] MEDS: MoRPHine SULFATE 2.5 MG/0.125 ML UDP PO PRN ×2 (05:37→23:34)
[2017-02-25] MEDS: LEValbuterol HFA 15GM INHALER INH SCH ×5 (05:38→23:34)
[2017-02-25] MEDS: IPRATROPIUM BROMIDE HFA INHALER INH SCH ×6 (05:38→23:34)
[2017-02-25 07:11] VITALS: BP 147/86; PULSE 84; TEMP 37.3; O2SAT 97
[2017-02-25] MEDS: BOOST VANILLA PO SCH ×6 (08:48→22:18)
[2017-02-25] MEDS: DILTIAZEM HCL 60 MG TAB PO SCH ×3 (10:02→22:18)
[2017-02-25] MEDS: METOPROLOL TARTRATE 25 MG TAB PO SCH ×2 (10:03→22:19)
[2017-02-25] MEDS: AMLODIPINE BESYLATE 5 MG TAB PO SCH (10:04)
[2017-02-25] MEDS: FAMOTIDINE 20 MG TAB PO SCH (10:04)
[2017-02-25] MEDS: DOCUSATE SODIUM 100 MG CAP PO SCH ×2 (10:10→22:19)
[2017-02-25] MEDS: SENNA 8.6 MG TAB PO SCH ×2 (10:10→22:19)
--- NOTE | 2017-02-25 11:48 | Progress Note ---
Internal Med Progress Note Date of Service: Feb 25, 2017. Provider Documentation: SUBJECTIVE: Patient feeling better. Breathing better as per patient. No other new issues overnight OBJECTIVE: General Appearance: breathing on nasal cannula, no acute distress Head: normocephalic, atraumatic Eyes: normal inspection, EOMI, sclerae normal ENT: hearing grossly normal, pharynx normal Neck: supple, no JVD, trachea midline Respiratory/Chest: chest non-tender, no wheezing on auscultation, patient taking deeper breaths Cardiovascular: no murmur, + tachycardia Abdomen/GI: distended, +umbilical hernia Extremities/Musculoskelatal: no calf tenderness, normal capillary refill, non- tender Neurologic/Psych: alert, normal mood/affect, oriented x 3 Skin: normal color, warm/dry ASSESSMENT & PLAN: Pt is 77 y/o F with PMH severe end stage COPD and on hospice, HTN, RBBB, 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 Pt on hospice since 05/2016 for end stage COPD CXR on 02/23/17 1. Unchanged consolidative opacities of the left lower lobe with possible trace effusion. 2. Additional linear subsegmental bibasilar opacities suggest atelectasis/ scarring. 3. Emphysema Sputum Culture 02/21/17: negative Blood culture 02/20/17: negative MRSA nasal 02/20/17: negative Procalcitonin 02/20/17: negative COPD EXACERBATION CXR: consolidation LLL. Leukocytosis on chronic sterids. negative procalcitonin. Zosyn started empirically on 02/20/17 to be stopped on 02/23/17 as pneumonia unlikely - solumedrol IV, nebulizer treatments have been given -pulmonary service has changed solumedrol IV to oral prednisone, will discharge with oral prednisone HTN: continue amlodipine, cardizem Cardiovascular hx pacer. hx RBBB. Denies any worsening CP. Echo 2016 EF: 65-70% Echocardiogram 02/21/17: Sinus tachycardia was present during the echocardiogram. The valves were not well visualized, and the Doppler assessment of the valves is suboptimal due to technical limitations and patient position, as patient was apparently sitting upright for the study, unable to lie down. Unclear source of tachycardia, possibly from respiratory issues , patient was started on low dose beta blockers on 02/21/17 and heart rate is less tachycardic on telemetry Renal function, no acute kidney injury GERD symptoms CHRONIC ABDOMINAL PAIN / history of hernia: stable, on pain medications KUB 02/24/17: compared to study dated 05/03/15 and correlated with abdominal CT dated 06/04/2014. There is a nonobstructed abdominal bowel gas pattern. Mild colonic fecal retention is observed. No evidence of intraperitoneal free air is seen on this supine view. There are no abnormal abdominal calcifications. Phleboliths are noted in the left hemipelvis. The skeletal structures are osteopenic. The bony structures are grossly intact. Palliative care recs 02/21/17: "Patient would like to continue current medical management while in hospital. -Upon discharge, patient would like to go home with hospice and private pay caregivers. Patient and her sister both agreed that patient's son is burnt-out and needs help caring for patient. -Patient adamantly declines placement into SNF, even for short-term stay. -Continue Roxanol 2.5mg, but would increase to Q3h PRN pain or SOB. -Continue PRN lorazepam. -Patient is already level 5 DNR. She has a living will, patient will think about POLST" Disposition: Patient is to be discharged to home with home hospice care General Internal Medicine [facility] Zara Corona MD on February 28, 12:45 PM New hospital medication/medication dosage is prednisone 40 mg daily for 5 days. Further prednisone treatment can be adjusted by primary [facility] doctor Patient also to have metoprolol 12.5 mg twice a day to be added to home medication list as this medication allowed for control of heart rate when used in the hospital Vital Signs: Date Time Temp Pulse Resp B/P (MAP) Pulse Ox O2 Delivery O2 Flow Rate FiO2 02/25/17 07:11 37.3 84 18 147/86 (106) 97 Nasal Cannula 4.0 02/25/17 00:00 98 Nasal Cannula 4.0 02/24/17 23:41 36.4 78 20 136/73 (94) 97 4.0 02/24/17 20:47 100 187/98 (127) 02/24/17 19:09 98 Nasal Cannula 4.0 02/24/17 15:20 36.6 85 18 153/82 (105) 98 Nasal Cannula 4.0
[2017-02-25] MEDS ORDERED: LPR25 PO (11:56)
[2017-02-25] MEDS ORDERED: PRD20 PO (11:56)
--- NOTE | 2017-02-25 12:03 | Discharge Instructions ---
Discharge Instructions Date of Service Feb 25, 2017. Admission Reason for Admission: Copd Excerbation,Pneumonia Discharge Discharge Diagnosis / Problem: COPD exacerbation, Tachycardia, Hypoxia, Hypercapnia Discharge Goals Goal(s): Improve function, Improve disease control Activity Recommendations Activity Limitations: per Instructions/Follow-up section Lifting Limitations: until after follow-up appointment Exercise/Sports Limitations: until after follow-up appointment Shower/Bathe: no limitations . Instructions / Follow-Up Instructions / Follow-Up Disposition: Patient is to be discharged to home with home hospice care General Internal Medicine [facility] Zara Corona MD on February 28, 12:45 PM New hospital medication/medication dosage is prednisone 40 mg daily for 5 days. Further prednisone treatment can be adjusted by primary acre doctor Patient also to have metoprolol 12.5 mg twice a day to be added to home medication list as this medication allowed for control of heart rate when used in the hospital Current Hospital Diet Patient's current hospital diet: AHA Diet (Heart Healthy) Discharge Diet Recommended Diet: AHA Diet (Heart Healthy) Pending Studies Studies pending at discharge: no Laboratory Results 02/23/17 06:03 02/23/17 06:03 Test 02/20/17 08:25 02/20/17 08:51 02/20/17 17:00 02/22/17 05:58 Prothrombin Time 10.7 SECONDS (9.0-12.0) Prothromb Time International Ratio 1.0 (0.9-1.1) Activated Partial Thromboplast Time 23.1 SECONDS (21.0-31.0) Partial Thromboplastin Ratio 0.9 Troponin I < 0.015 ng/ml (0-0.045) Procalcitonin < 0.05 ng/ml (0-0.5) Venous Blood pH 7.37 (7.36-7.41) Venous Blood Partial Pressure CO2 61 mmHg (38.0-50.0) Venous Blood Partial Pressure O2 45 mmHg Venous Blood HCO3 35 mmol/L Venous Blood Oxygen Saturation 80.0 % Venous Blood Base Excess 7.4 mEq/L Urine Color YELLOW Urine Appearance CLEAR (CLEAR) Urine pH 5.0 (4.5-7.5) Urine Specific [place] 1.028 (1.000-1.030) Urine Protein NEG (NEG) Urine Glucose (UA) 3+ (NEG) Urine Ketones 1+ (NEG) Urine Occult Blood NEG (NEG) Urine Nitrite NEG (NEG) Urine Bilirubin NEG (NEG) Urine Urobilinogen NEG (NEG) Urine Leukocyte Esterase NEG (NEG) Influenza Type A (RT-PCR) Neg for Influ A (NEG) Influenza Type A Antigen Neg for Influ A (NEG) Influenza Type B Antigen Neg for Influ B (NEG) Influenza Type B (RT-PCR) Neg for Influ B (NEG) Immature Granulocyte % (Auto) 0.6 % White Blood Count 25.27 K/uL (4.8-10.8) Red Blood Count 4.03 M/uL (4.2-5.4) Hemoglobin 12.7 g/dL (12.0-16.0) Hematocrit 40.4 % (37-47) Mean Corpuscular Volume 100.2 fL (80-100) Mean Corpuscular Hemoglobin 31.5 pg (25-34) Mean Corpuscular Hemoglobin Concent 31.4 g/dl (32-36) Platelet Count 166 K/uL (130-400) Mean Platelet Volume 11.5 fL (7.4-10.4) Neutrophils (%) (Auto) 94.8 % Lymphocytes (%) (Auto) 2.3 % Monocytes (%) (Auto) 2.3 % Eosinophils (%) (Auto) 0.0 % Basophils (%) (Auto) 0.0 % Neutrophils # (Auto) 23.93 K/uL (1.4-6.5) Lymphocytes # (Auto) 0.59 K/uL (1.2-3.4) Monocytes # (Auto) 0.59 K/uL (0.11-0.59) Eosinophils # (Auto) 0.00 K/uL (0-0.5) Basophils # (Auto) 0.01 K/uL (0-0.2) Immature Granulocyte # (Auto) 0.15 K/uL (0.00-0.02) Hypersegmented Polys 1+ Toxic Vacuolation OCCASIONAL Test 02/23/17 06:03 Red Blood Count 3.95 M/uL (4.2-5.4) Mean Corpuscular Volume 99.5 fL (80-100) Mean Corpuscular Hemoglobin 31.6 pg (25-34) Mean Corpuscular Hemoglobin Concent 31.8 g/dl (32-36) RDW Standard Deviation 46.8 fL (36.4-46.3) RDW Coefficient of Variation 12.9 % (11.5-14.5) Mean Platelet Volume 11.7 fL (7.4-10.4) Anion Gap 5.0 mmol/L (3-11) Est Creatinine Clear Calc Drug Dose 44.5 ml/min Estimated GFR () 59.5 Estimated GFR (Non- 51.3 BUN/Creatinine Ratio 28.2 (10-20) Calcium Level 9.1 mg/dl (8.5-10.1) Magnesium Level 2.4 mg/dl (1.8-2.4) Total Bilirubin 0.4 mg/dl (0.2-1) Aspartate Amino Transf (AST/SGOT) 14 U/L (15-37) Alanine Aminotransferase (ALT/SGPT) 19 U/L (12-78) Alkaline Phosphatase 62 U/L (45-117) Total Protein 6.4 gm/dl (6.4-8.2) Albumin 2.9 gm/dl (3.4-5.0) Globulin 3.5 gm/dl (2.5-4.0) Albumin/Globulin Ratio 0.8 (0.9-2) Date/Time Source Procedure Growth Status 02/20/17 08:52 Blood Blood Culture - Preliminary NO GROWTH TO DATE. Resulted 02/20/17 00:00 Nasal MRSA DNA Surveillance Screen - Final Specimen Negative for MRSA by DNA Probe Complete 02/21/17 18:15 Sputum Expectorated Sputum Gram Stain - Final Complete 02/21/17 18:15 Sputum Expectorated Sputum Sputum Culture - Final HEAVY NORMAL ADAM Complete Medical Emergencies . Who to Call and When: Medical Emergencies: If at any time you feel your situation is an emergency, please call 911 immediately. . Non-Emergent Contact Non-Emergency issues call your: Primary Care Provider . . "Provider Documentation" section prepared by Fede Robles. . VTE Core Measure Inpt VTE Proph given/why not?: Unfractionated heparin SQ
--- NOTE | 2017-02-25 13:03 | Discharge Summary ---
Discharge Summary Date of Service Feb 25, 2017. Discharge Summary Admission Date: Feb 20, 2017 at 11:07 Discharge Date: Feb 25, 2017 Discharge Disposition: Home with services (Home Hospice) Principal Diagnosis: COPD exacerbation, Tachycardia, Hypoxia, Hypercapnia Medication Reconciliation New Medications: Metoprolol Tartrate (Lopressor) 25 Mg Tab 12.5 MG PO BID for 30 Days, #30 TAB Prednisone (Prednisone) 20 Mg Tab 40 MG PO DAILY for 5 Days, #10 TAB Continued Medications: Albuterol Hfa (Ventolin Hfa) 200 Puffs/82572 Mcg Aers 2 PUFFS INH QID Amlodipine Besylate (Amlodipine Besylate) 5 Mg Tab 1 TAB PO DAILY Bisacodyl (Dulcolax) 5 Mg Tab 2 TAB PO DAILY for Constipation for 1 Day, #2 TAB Cholecalciferol (Vitamin D3) 400 Unit/Ml [place] 1 ML PO DAILY Diltiazem Hcl (Cardizem) 30 Mg Tab 2 TAB PO TID, TAB Famotidine (Pepcid) 40 Mg Tab 40 MG PO DAILY, TAB Furosemide (Lasix) 20 Mg Tab 1 TAB PO UD for 90 Days, TAB 1 Refill 1 tab po daily prn LE edema Home O2 Therapy (Oxygen) Gas 4 LITERS NA CONTINOUS Hydrocodone Polistirex-Chlorph (Hydrocodone Polistirex/Ch 10-8 mg/5Ml) 1 Liq Liq 5 ML PO Q6 for Cough Lorazepam (Ativan) 0.5 Mg Tab 0.5 MG PO Q4H PRN for Anxiety, TAB Morphine Sulfate (Morphine Sulfate) 20 Mg/5 Ml Tiffanie 1.3-2.5 ML PO Q1H PRN for Shortness of Breath Ondansetron Hcl (Zofran) 4 Mg Tab 4 MG PO Q6 PRN for Nausea, TAB Simethicone (Mylicon) 80 Mg Chw 80 MG PO Q6 for Gas or Constipation, TAB Discontinued Medications: Prednisone (Prednisone) 10 Mg Tab 1 TAB PO DAILY Admission Information HPI (per Admitting provider): Pt is 77 y/o F with PMH severe end stage COPD and on hospice, HTN, RBBB, 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 Pt on hospice since 05/2016 for end stage COPD. Reports was on hospice in past also and then off and then back on. She reports that she hasn't followed with pulmonology for years. Uses albuterol inhaler Q4hrs and prednisone 10mg daily. Pt on home O2 at 4L continuously and has SOB at rest at baseline. On morphine prn pain/sob. Uses Ativan prn anxiety. Pt states has chronic intermittent productive cough of green sputum for "years". Reports approx month ago cough of green sputum more consistent and pt was placed on Ceftin. She states initially 250mg BID x 10 days and then 500mg BID x 10 days. Pt states past 2-3 days with increased SOB. Pt reports bedridden for past year as has significant weakness. Is able to ambulate with assistance to potty chair. C/O decreased appetite for past month and didn't eat or drink much yesterday. Denies any increased LE edema and reports chronic LE edema. Has Lasix to use prn , but hasn't used that for months. Reports hx chronic CP intermittently, denies any worsening. Also reports hx chronic abdominal pain and reports morphine helps with that. Hx intermittent constipation, and reports BM yesterday. Pt states has been feeling hot, unsure if she has had a fever. Denies diaphoresis, V/D, MARIE, dizziness, syncope, vision changes, neck pain, CP, SOB, orthopnea, palpitations, sore throat, choking, otalgia, rhinorrhea, dysuria, hematuria, hematochezia, melena. In ER pt tachy at 130, R:32, 88% on 4L. WBC: 17, negative troponin. EKG: sinus tachy 128, RBBB. pt given albuterol neb with improvement of SOB, also given solumedrol 125mg, zosyn. Physical Exam (per Admitting): General Appearance: + obese, + pertinent finding (chronic ill appearing. pt sitting upright in bed) Head: normocephalic, atraumatic Eyes: normal inspection, PERRL, EOMI, sclerae normal ENT: hearing grossly normal, pharynx normal, + pertinent finding (mildly dry mucous membranes. bilateral nare with scab) Neck: supple, no JVD, trachea midline Respiratory/Chest: chest non-tender, + respiratory distress (increased respirations with mild work of breathing, pt is able to speak in sentences, On NC O2. ), + decreased breath sounds (throughout, +wheezing throughout, rhonchi bases, rales left base) Cardiovascular: no murmur, + tachycardia Abdomen/GI: + pertinent finding (distended, +umbilical hernia, soft, diffuse tenderness to palpation entire abdomen without rebound or guarding) Extremities/Musculoskelatal: no calf tenderness, normal capillary refill, non-tender, + swelling (bilateral LE 1+pitting edema), + pertinent finding ( pedal pushes and pulls intact) Neurologic/Psych: alert, normal mood/affect, oriented x 3 Skin: normal color, warm/dry Hospital Course Pt is 77 y/o F with PMH severe end stage COPD and on hospice, HTN, RBBB, 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 Pt on hospice since 05/2016 for end stage COPD CXR on 02/23/17 1. Unchanged consolidative opacities of the left lower lobe with possible trace effusion. 2. Additional linear subsegmental bibasilar opacities suggest atelectasis/ scarring. 3. Emphysema Sputum Culture 02/21/17: negative Blood culture 02/20/17: negative MRSA nasal 02/20/17: negative Procalcitonin 02/20/17: negative COPD EXACERBATION CXR: consolidation LLL. Leukocytosis on chronic sterids. negative procalcitonin. Zosyn started empirically on 02/20/17 to be stopped on 02/23/17 as pneumonia unlikely - solumedrol IV, nebulizer treatments have been given -pulmonary service has changed solumedrol IV to oral prednisone, will discharge with oral prednisone HTN: continue amlodipine, cardizem Cardiovascular hx pacer. hx RBBB. Denies any worsening CP. Echo 2016 EF: 65-70% Echocardiogram 02/21/17: Sinus tachycardia was present during the echocardiogram. The valves were not well visualized, and the Doppler assessment of the valves is suboptimal due to technical limitations and patient position, as patient was apparently sitting upright for the study, unable to lie down. Unclear source of tachycardia, possibly from respiratory issues , patient was started on low dose beta blockers on 02/21/17 and heart rate is less tachycardic on telemetry Renal function, no acute kidney injury GERD symptoms CHRONIC ABDOMINAL PAIN / history of hernia: stable, on pain medications KUB 02/24/17: compared to study dated 05/03/15 and correlated with abdominal CT dated 06/04/2014. There is a nonobstructed abdominal bowel gas pattern. Mild colonic fecal retention is observed. No evidence of intraperitoneal free air is seen on this supine view. There are no abnormal abdominal calcifications. Phleboliths are noted in the left hemipelvis. The skeletal structures are osteopenic. The bony structures are grossly intact. Palliative care recs 02/21/17: "Patient would like to continue current medical management while in hospital. -Upon discharge, patient would like to go home with hospice and private pay caregivers. Patient and her sister both agreed that patient's son is burnt-out and needs help caring for patient. -Patient adamantly declines placement into SNF, even for short-term stay. -Continue Roxanol 2.5mg, but would increase to Q3h PRN pain or SOB. -Continue PRN lorazepam. -Patient is already level 5 DNR. She has a living will, patient will think about POLST" Disposition: Patient is to be discharged to home with home hospice care General Internal Medicine [facility] [place] Zara Corona MD on February 28, 12:45 PM New hospital medication/medication dosage is prednisone 40 mg daily for 5 days. Further prednisone treatment can be adjusted by primary acre doctor Patient also to have metoprolol 12.5 mg twice a day to be added to home medication list as this medication allowed for control of heart rate when used in the hospital Total time spent on discharge = 60 minutes This includes examination of the patient, discharge planning, medication reconciliation, and communication with other providers. Discharge Instructions Disposition: Patient is to be discharged to home with home hospice care General Internal [facility] [place] on February 28, 12:45 PM New hospital medication/medication dosage is prednisone 40 mg daily for 5 days. Further prednisone treatment can be adjusted by primary acre doctor Patient also to have metoprolol 12.5 mg twice a day to be added to home medication list as this medication allowed for control of heart rate when used in the hospital
[2017-02-25 15:02] VITALS: BP 163/89; PULSE 94; TEMP 36.5; O2SAT 93
[2017-02-25 16:58] LABS: MANUAL MICROSCOPIC REQUIRED? NO; REVIEW REQ? NO; URINE APPEARANCE CLEAR (CLEAR); URINE BILIRUBIN NEG (NEG); URINE COLOR YELLOW; URINE NITRITE NEG (NEG); URINE PH >= 9.0 (4.5-7.5); URINE SPECIFIC GRAVITY 1.019 (1.000-1.030); UROBILINOGEN NEG (NEG); ZZUR CULT IF INDIC CLEAN CATCH NO
[2017-02-25 22:08] VITALS: BP 145/82; PULSE 92
[2017-02-26 00:27] VITALS: BP 130/88; PULSE 73; TEMP 36.6; O2SAT 96
[2017-02-26] MEDS: LEValbuterol HFA 15GM INHALER INH SCH (06:00)
[2017-02-26] MEDS: IPRATROPIUM BROMIDE HFA INHALER INH SCH (06:00)
[2017-02-26 07:55] VITALS: BP 137/76; PULSE 83; TEMP 36.5; O2SAT 91
[2017-02-26] MEDS: LORAZEPAM 0.5 MG TAB PO PRN (08:08)
[2017-02-26] MEDS: METOPROLOL TARTRATE 25 MG TAB PO SCH (08:09)
[2017-02-26] MEDS: DOCUSATE SODIUM 100 MG CAP PO SCH (08:10)
[2017-02-26] MEDS: FAMOTIDINE 20 MG TAB PO SCH (08:10)
[2017-02-26] MEDS: SENNA 8.6 MG TAB PO SCH (08:10)
[2017-02-26] MEDS: AMLODIPINE BESYLATE 5 MG TAB PO SCH (08:11)
[2017-02-26] MEDS: BOOST VANILLA PO SCH ×2 (08:11)
[2017-02-26] MEDS: DILTIAZEM HCL 60 MG TAB PO SCH (08:11)
[2017-02-26] MEDS ORDERED: ATRINS INH (09:05)
[2017-02-26] MEDS ORDERED: XPNINS INH (09:05)
--- NOTE | 2017-02-26 09:14 | Progress Note ---
Progress Note Date of Service Feb 26, 2017. Progress Note Patient to be discharged to home hospice on 02/25/17 However transportation delayed and patient remained in hospital overnight Patient continues to report that her breathing is better than compared to admission. She would like nebulizer treatment electronic prescriptions to be sent to her pharmacy as she is out of nebulizer treatments at home. She would like nasal decongestants as well. Physical Exam General: no acute distress Nose: nasal cannula, no epistaxis Heart: RRR Lungs: Clear to auscultation Abdomen: bowel sounds present Extremities: no edema
[2017-02-26] MEDS ORDERED: SALI0.6510 (09:15)
[2017-02-26] MEDS ORDERED: FLUTICASONE PROPIONATE NA SPR 16 GM BTL PRN (09:15)
[2017-02-26] MEDS ORDERED: SODIUM CHLORIDE 0.65% NA SOLN 45 ML (OCEAN) PRN (09:15)
[2017-02-26 09:18] LABS: HEMATOCRIT 43.9 % (37-47); MEAN CELL VOLUME 99.3 fL (80-100); MEAN CORPUSCULAR HEMOGLOBIN 31.7 pg (25-34); MEAN CORPUSCULAR HGB CONC 31.9 g/dl (32-36); MEAN PLATELET VOLUME 11.7 fL (7.4-10.4); PLATELET COUNT 171 K/uL (130-400); RED BLOOD COUNT 4.42 M/uL (4.2-5.4); WHITE BLOOD COUNT 15.28 K/uL (4.8-10.8)
[2017-02-26] MEDS: CHLORPH/HYDROCOD EXT REL LIQ 5ML UDP PO PRN (09:44)
[2017-02-26 09:52] VITALS: BP 137/76; PULSE 83; TEMP 36.5; O2SAT 91
[2017-02-26] MEDS: MoRPHine SULFATE 2.5 MG/0.125 ML UDP PO PRN (10:09)
== END 2017-02-26 10:50 | disposition home health service (06) | DRG 193 ==
LOC: EDBD 08:05 → C.EDA 08:06 → C.2E 11:07 → EDBEDREQ 11:42 → ENRESERV 11:42 → C.MS2W 02-24 10:13
PROVIDERS: ADMIT Hospitalist; ATTEND Hospitalist
DX: J18.9 Pneumonia, unspecified organism (principal); J96.20 Acute and chronic respiratory failure, unspecified whether with hypoxia or hypercapnia; J44.1 Chronic obstructive pulmonary disease with (acute) exacerbation; Z82.49 Family history of ischemic heart disease and other diseases of the circulatory system; Z87.891 Personal history of nicotine dependence; Z79.52 Long term (current) use of systemic steroids; I10 Essential (primary) hypertension; I45.10 Unspecified right bundle-branch block; Z95.0 Presence of cardiac pacemaker; Z83.3 Family history of diabetes mellitus; R07.89 Other chest pain; K21.9 Gastro-esophageal reflux disease without esophagitis; Z66 Do not resuscitate; N18.3 Chronic kidney disease, stage 3 (moderate); G89.4 Chronic pain syndrome; Z51.5 Encounter for palliative care; Z99.81 Dependence on supplemental oxygen

== ENCOUNTER 2018-10-09 16:46 | Inpatient (IN) ==
--- OUTSIDE RECORDS SUMMARY | 2018-10-09 16:49 | External Medical Summary | Continuity of Care Document ---
:1940 Author Name Alysha Hernández Address Unavailable Unavailable , Care Team Providers Name Role Phone Unavailable Unavailable Unavailable Ariella [email or web address] [email or web address] [place] Unavailable Unavailable Unavailable Unavailable Unavailable Problems Emphysema (492.8) Right bundle branch block (426.4) (I45.0) Palpitations (785.1) (R00.2) Pulmonary hypertension (416.8) (I27.20) Hypertension (401.9) (I10) Chronic obstructive pulmonary disease (496) (J44.9) Hiatal hernia (553.3) (K44.9) Allergies and Adverse Reactions Cipro TABS (Allergy) Reaction: Swelling Dulera AERO (Allergy) Reaction: Swelling Levaquin TABS (Allergy) Reaction: Rash Symbicort AERO (Allergy) Reaction: Swell ing TETANUS (Allergy) Reaction: Swelling Zithromax TABS (Allergy) Reaction: Swell ing Medications Hycodan 5-1.5 MG/5ML SYRP; TAKE 1 TSP Every 8 hours , M.D. Refills: 0 LORazepam 0.5 MG Oral Tablet; TAKE 1 TABLET Daily PRN , M.D. Refills: 0 Aspirin 81 MG TABS; Take 1 tablet daily , M.D. Refills: 0 Qvar 80 MCG/ACT AERS; INHALE 2 PUFFS Twice daily Edgar Goetz Start: 02-Jul-2013 Quantity: 1 8.7 GM Inhaler Refills: 11 Vitamin D3 1000 UNIT Oral Tablet Chewgabriel , M.DLinda Refills: 0 Oxygen , M.D. Refills: 0 dilTIAZem HCl - 90 MG Oral Tablet; TAKE 1 TABLET 3 times elayne ly , M.D. Refills: 0 Ventolin HFA 108 (90 Base) MCG/ACT Inhalation Aerosol Soluti on , M.D. Refills: 0 predniSONE 10 MG Oral Tablet; take 4 tab lets for 5 days 3 tablets for 5 days 2 tablets for 5 days 1tablet for 5 days for ASTHMA EXACERBATION Edgar Goetz Start: 02-Jul-2013 Quantity: 50 Refills: 3 Amoxicillin-Pot Clavulanate 875-125 MG Oral Tablet; Ta ke 1 tablet twice a day Edgar Goetz Start: 02-Jul-2013 Quantity: 20 Refills: 3 traMADol HCl - 50 MG Oral Tablet; one pill by mouth ev manuel 6hours prn pain Edgar Start: 06-May-2013 Refills: 0 Protonix 40 MG Oral Tablet Delayed Relea se; one pill twice a day 30min before meal. do not crush, split or chew the tablet , M.DLinda Start: Refills: 0 Singulair 10 MG Oral Tablet; Take 1 tablet daily , M.DLinda Start: 06-May-2013 Refills: 0 predniSONE 5 MG Oral Tablet; TAKE 1 TABLET every other day , M.DLinda Refills: 0 Saline Nasal [place] SOLLois; USE 1 SPRAY IN EACH NOSTRIL TWICE D Edgar SAGASTUME Refills: 0 Dulera 200-5 MCG/ACT Inhalation Aerosol; INHALE 2 PUFFS TWIC E DAILY. , M.D. Refills: 0 Multiple Vitamin TABS; TAKE 1 TABLET DAILY. , M.D. Refills: 0 Ipratropium-Albuterol 0.5-2.5 (3) MG/3ML Inhalation Solution; USE 1 UNIT DOSE IN NEBULIZER EVERY 4 HOURS NEEDED. , M.D. Refills: 0 Procedures History of Appendectomy Status: Complete d History of Bronchoscopy (Diagnostic) Sta tus: Completed Immunizations Immunizations not documented Family History Grandmother Family history of Diabetes Mellitus (V18.0) Status: Active Mother Family history of Stroke Syndrome (V17.1) Status: Active Family history of Heart Disease (V17.49) Status: Active Family history of Hypertension (V17.49) Status: Active Unknown Family Member Family history of Diabetes Mellitus (V18.0) Status: Active Comments: Family History Social History - Smoking Status Former smoker Plan of Treatment Planned Observations Planned Goals not documented Results No Known Results Results not documented
[2018-10-09] MEDS ORDERED: LORazepam 2 MG/4 ML VIAL ONE (16:53)
--- NOTE | 2018-10-09 17:45 | XRay Report ---
XR chest 1V portable CLINICAL HISTORY: Sepsis COMPARISON STUDY: 03-10 FINDINGS: The study is limited from technical standpoint. The heart is borderline enlarged. There is a left subclavian dual-chamber central venous pacemaker. There are chronic basilar opacities. There i s no overt failure. There is no lobar consolidation.[ IMPRESSION: 1. Chronic interstitial basilar opacities 2. Borderline cardiomegaly 3. No evidence of failure Electronically signed by: Brayan Tse M.D. 10/09/2018 5:44 PM
--- NOTE | 2018-10-09 18:00 | Emergency Department Note ---
Entered by Qi Flores acting as a scribe for Varun Mendoza DO History of Present Illness General Chief complaint: Shortness of Breath/Dyspnea Stated complaint: RESP. 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 The patient also received bipap, Ativan and a gram of magnesium prior to arrival. HPI is limited secondary to the patients condition. . Home Medications Home Medications Medication Instructions Recorded Confirmed Type albuterol sulfate 2 puff INHALATION QID 10/09/18 10/09/18 History amlodipine 2.5 mg PO DAILY 10/09/18 10/09/18 History budesonide-formoterol [Symbicort] 2 puff INHALATION BID 10/09/18 10/09/18 History diltiazem HCl 30 mg PO UD 10/09/18 10/09/18 History diltiazem HCl 60 mg PO QAM 10/09/18 10/09/18 History famotidine 40 mg PO DAILY 10/09/18 10/09/18 History hydrocodone-chlorpheniramine 5 ml PO BID 10/09/18 10/09/18 History lorazepam 0.5 mg PO BID PRN 10/09/18 10/09/18 History Allergies Allergy/AdvReac Type Severity Reaction Status Date / Time budesonide Allergy Severe TOLERATES Verified 10/09/18 17:51 PULMICORT.Swelling of neck, face, all extremities. tetanus toxoid, adsorbed Allergy Severe SWELLING Verified 10/09/18 17:51 strawberry Allergy Mild hives Verified 10/09/18 17:51 albuterol Allergy Unknown swelling Verified 10/09/18 17:51 of face and neck Cipro Allergy Unknown UNKOWN Verified 02/20/17 09:05 ciprofloxacin Allergy Unknown UNKOWN Verified 10/09/18 17:51 doxycycline Allergy Unknown unkn Verified 10/09/18 17:51 formoterol Allergy Unknown Swelling Verified 10/09/18 17:51 of face and throat. ipratropium Allergy Unknown swelling Verified 07/18/19 17:51 of face and neck levofloxacin Allergy Unknown Flushing. Verified 10/09/18 17:51 mivacurium Allergy Unknown UNKNOWN Verified 10/09/18 17:51 mometasone furoate Allergy Unknown Swelling Verified 10/09/18 17:51 of face and throat. 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 Beliefs That Will Affect Care: None marital status: Single Current Living Situation: Family Other Information That Helps Us Care for You: No Feels Safe at Home: No Is there a partner from a previous relationship who is making you feel unsafe now?: No Any Concerns about Your Family Situation: Yes W ould You Like to Speak to Someone About Your Situation: Yes (Afraid of her son) Safety Concerns: Afraid for Self Smoking Status: Former smoker Tobacco Type: cigarettes Do You Dip or Chew Tobacco: No Second Hand Exposure: No Hx Alcohol Use: No Hx Substance Use: No Review of Systems Other (ROS is limited secondary to the patients condition. ) Physical Exam Vital Signs Vital Signs - 24 hr 10/09/18 16:26 10/09/18 16:55 10/09/18 17:15 Temperature 37.1 C Temperature Source Oral Sepsis Recent Fever Within 48 Hours No Sepsis New/Unexplained Change in Mental Status No Sepsis Action Taken by Nursing No Action Required Oxygen Flow Rate - Titration 30 Fraction of Inspired Oxygen - Titration 70 Pulse Oximetry Post Tiitration 96 Pulse Rate 129 H 126 H Pulse Rate [Right Finger] Pulse Rate from SpO2 Sensor 127 H Respiratory Rate 30 H 30 H Respiratory Effort / Characteristics Accessory Muscle Use Labored Short of Breath Respiratory Depth Shallow Respiratory Pattern Tachypnea Blood Pressure 177/94 H 142/73 H Blood Pressure [Left Arm] Blood Pressure Mean 121 96 Blood Pressure Mean [Left Arm] Blood Pressure Position Sitting Blood Pressure Position [Left Arm] Pulse Oximetry 92 95 Oxygen Delivery Method BiPAP Free Flow/Blow- by Free Flow/Blow- by Free Flow/Blow- by Oxygen Flow Rate 30 30 Fraction of Inspired Oxygen 70 70 SaO2/FiO2 Ratio 131 10/09/18 17:21 10/09/18 17:30 10/09/18 17:31 Temperature Temperature Source Sepsis Recent Fever Within 48 Hours Sepsis New/Unexplained Change in Mental Status Sepsis Action Taken by Nursing Oxygen Flow Rate - Titration Fraction of Inspired Oxygen - Titration Pulse Oximetry Post Tiitration Pulse Rate 126 H 125 H 124 H Pulse Rate [Right Finger] 116 H Pulse Rate from SpO2 Sensor 127 H 125 H 124 H Respiratory Rate 36 H 31 H 31 H Respiratory Effort / Characteristics Spontaneous Labored Short of Breath Respiratory Depth Respiratory Pattern Blood Pressure 144/81 H Blood Pressure [Left Arm] Blood Pressure Mean 102 Blood Pressure Mean [Left Arm] Blood Pressure Position Blood Pressure Position [Left Arm] Pulse Oximetry 96 96 96 Oxygen Delivery Method Free Flow/Blow- by Free Flow/Blow- by Free Flow/Blow- by Oxygen Flow Rate 30 30 Fraction of Inspired Oxygen 70 70 SaO2/FiO2 Ratio 10/09/18 17:45 10/09/18 17:46 10/09/18 18:00 Temperature Temperature Source Sepsis Recent Fever Within 48 Hours Sepsis New/Unexplained Change in Mental Status Sepsis Action Taken by Nursing Oxygen Flow Rate - Titration Fraction of Inspired Oxygen - Titration Pulse Oximetry Post Tiitration Pulse Rate 124 H 125 H 126 H Pulse Rate [Right Finger] Pulse Rate from SpO2 Sensor 124 H 125 H 127 H Respiratory Rate 32 H 31 H 27 H Respiratory Effort / Characteristics Respiratory Depth Respiratory Pattern Blood Pressure 141/76 H 164/78 H Blood Pressure [Left Arm] Blood Pressure Mean 97 106 Blood Pressure Mean [Left Arm] Blood Pressure Position Blood Pressure Position [Left Arm] Pulse Oximetry 96 96 94 Oxygen Delivery Method Free Flow/Blow- by Free Flow/Blow- by Free Flow/Blow- by Oxygen Flow Rate Fraction of Inspired Oxygen SaO2/FiO2 Ratio 10/09/18 18:01 10/09/18 18:15 10/09/18 18:16 Temperature Temperature Source Sepsis Recent Fever Within 48 Hours Sepsis New/Unexplained Change in Mental Status Sepsis Action Taken by Nursing Oxygen Flow Rate - Titration Fraction of Inspired Oxygen - Titration Pulse Oximetry Post Tiitration Pulse Rate 126 H 129 H 125 H Pulse Rate [Right Finger] Pulse Rate from SpO2 Sensor 126 H 131 H 126 H Respiratory Rate 28 H 35 H 28 H Respiratory Effort / Characteristics Respiratory Depth Respiratory Pattern Blood Pressure 137/88 Blood Pressure [Left Arm] Blood Pressure Mean 104 Blood Pressure Mean [Left Arm] Blood Pressure Position Blood Pressure Position [Left Arm] Pulse Oximetry 96 96 96 Oxygen Delivery Method Free Flow/Blow- by Free Flow/Blow- by Oxygen Flow Rate Fraction of Inspired Oxygen SaO2/FiO2 Ratio 10/09/18 19:00 10/09/18 19:22 Temperature Temperature Source Sepsis Recent Fever Within 48 Hours Sepsis New/Unexplained Change in Mental Status Sepsis Action Taken by Nursing Oxygen Flow Rate - Titration Fraction of Inspired Oxygen - Titration Pulse Oximetry Post Tiitration Pulse Rate Pulse Rate [Right Finger] 122 H Pulse Rate from SpO2 Sensor Respiratory Rate 24 18 Respiratory Effort / Characteristics Accessory Muscle Use Non-Labored Spontaneous Respiratory Depth Shallow Respiratory Pattern Rapid/Shallow Blood Pressure Blood Pressure [Left Arm] 148/69 H Blood Pressure Mean Blood Pressure Mean [Left Arm] 95 Blood Pressure Position Blood Pressure Position [Left Arm] Sitting Pulse Oximetry 96 93 Oxygen Delivery Method High Flow Nasal Cannula High Flow Nasal Cannula Oxygen Flow Rate 15 Fraction of Inspired Oxygen 35 SaO2/FiO2 Ratio GENERAL: The patient is awake and alert. She is very anxious appearing. She is on a BiPAP mask and having significant difficulty breathing. EYES: The conjunctivae are clear. The pupils are round and reactive. EARS, NOSE, MOUTH AND THROAT: The nose is without any evidence of any deformity. Mucous membranes are moist tongue is midline NECK: The neck is nontender and supple. RESPIRATORY: Shallow respirations were noted. Diminished breath sounds are noted throughout. Abdominal breathing and retractions were also noted. CARDIOVASCULAR: Tachycardic rate with regular rhythm was noted. No definite murmurs noted. GASTROINTESTINAL: The abdomen is soft. Bowel sounds are present in all quadrants. Abdomen is nontender MUSCULOSKELETAL/EXTREMITIES: There is no evidence of gross deformity full range of motion is noted in the hips and shoulders SKIN: Pedal edema was noted bilaterally. Chronic venous stasis changes were noted. NEUROLOGIC: Patient is awake alert and oriented x3. Course 1650: The patient was evaluated in room B12B. A complete history and physical exam was performed. 1919: [facility] the [facility]: Upon reevaluation, the patient is resting comfortably. I discussed laborat ory and radiographic results with her and the son. The patient verbalized agreement of the treatment plan. The patient will be evaluated for further management and care. Administered Medications Amlodipine Besylate (Norvasc) 2.5 mg PO DAILY KAM Stop: 11/09/18 08:59 Last Admin: 10/11/18 08:11 Dose: 2.5 mg Documented by: [id number] Admin: 10/10/18 08:02 Dose: 2.5 mg Documented by: [id number] Budesonide/Formoterol Fumarate (Symbicort 160mcg/4.5mcg) 2 puffs INH BID KAM Stop: 11/08/18 21:25 Last Admin: 10/11/18 08:13 Dose: 2 puffs Documented by: [id number] Admin: 10/10/18 19:56 Dose: 2 puffs Documented by: [id number] Admin: 10/10/18 07:45 Dose: 2 puffs Documented by: [id number] Admin: 10/09/18 23:37 Dose: 2 puffs Documented by: [id number] Diltiazem HCl (Cardizem) 30 mg PO BID@1400,2100 [facility] Stop: 11/08/18 21:25 Last Admin: 10/10/18 19:56 Dose: 30 mg Documented by: [id number] Admin: 10/10/18 12:40 Dose: 30 mg Documented by: [id number] Admin: 10/09/18 23:37 Dose: 30 mg Documented by: [id number] Diltiazem HCl (Cardizem) 60 mg PO QAM KAM Stop: 11/09/18 08:59 Last Admin: 10/11/18 08:12 Dose: 60 mg Documented by: [id number] Admin: 10/10/18 08:01 Dose: 60 mg Documented by: [id number] Famotidine (Pepcid) 40 mg PO DAILY KAM Stop: 11/09/18 08:59 Last Admin: 10/11/18 08:13 Dose: 40 mg Documented by: [id number] Admin: 10/10/18 08:03 Dose: 40 mg Documented by: [id number] Folic Acid (Folvite) 1 mg PO QAM [facility] Stop: 11/09/18 11:29 Last Admin: 10/11/18 08:12 Dose: 1 mg Documented by: [id number] Admin: 10/10/18 12:39 Dose: 1 mg Documented by: [id number] Gabapentin (Neurontin) 400 mg PO Q8H KAM Stop: 10/12/18 00:01 Last Admin: 10/11/18 08:12 Dose: 400 mg Documented by: [id number] Guaifenesin/Codeine Phosphate (Robitussin-Ac Sugar Free) 5 ml PO Q6H PRN PRN Reason: Cough Stop: 11/08/18 23:12 Last Admin: 10/11/18 08:06 Dose: 5 ml Documented by: [id number] Admin: 10/10/18 07:58 Dose: 5 ml Documented by: [id number] Heparin Sodium (Porcine) (Heparin Sodium (Porcine)) 5,000 units SQ Q8 KAM Stop: 11/08/18 21:59 Last Admin: 10/11/18 07:49 Dose: Not Given Documented by: [id number] Admin: 10/10/18 21:51 Dose: 5,000 units Documented by: [id number] Cosigned by: [id number] Admin: 10/10/18 12:41 Dose: Not Given Documented by: [id number] Admin: 10/10/18 06:03 Dose: 5,000 units Documented by: [id number] Cosigned by: [id number] Admin: 10/09/18 23:36 Dose: 5,000 units Documented by: [id number] Cosigned by: [id number] Piperacillin Sod/Tazobactam (Sod 3.375 gm/ Dextrose) 115 mls @ 28.75 mls/hr IV Q8H [facility]; Protocol Stop: 10/17/18 00:00 Last Admin: 10/11/18 08:08 Dose: 28.8 mls/hr Documented by: [id number] Infusion: 10/11/18 05:05 Dose: 0 mls/hr Documented by: [id number] Admin: 10/11/18 00:28 Dose: 28.8 mls/hr Documented by: [id number] Infusion: 10/10/18 21:21 Dose: 0 mls/hr Documented by: [id number] Admin: 10/10/18 17:03 Dose: 28.8 mls/hr Documented by: [id number] Infusion: 10/10/18 12:00 Dose: 0 mls/hr Documented by: [id number] Admin: 10/10/18 08:00 Dose: 28.8 mls/hr Documented by: [id number] Infusion: 10/10/18 04:31 Dose: 0 mls/hr Documented by: [id number] Admin: 10/09/18 23:36 Dose: 28.8 mls/hr Documented by: [id number] Methylprednisolone 40 mg/ (Syringe) 0.64 mls @ 1.5 mls/min IV Q6H KAM Stop: 11/08/18 21:59 Last Admin: 10/11/18 05:15 Dose: 1.5 mls/min Documented by: [id number] Admin: 10/10/18 21:51 Dose: 1.5 mls/min Documented by: [id number] Admin: 10/10/18 17:04 Dose: 1.5 mls/min Documented by: [id number] Admin: 10/10/18 09:18 Dose: 1.5 mls/min Documented by: [id number] Admin: 10/10/18 04:51 Dose: 1.5 mls/min Documented by: [id number] Admin: 10/09/18 23:37 Dose: 1.5 mls/min Documented by: [id number] Levalbuterol HCl (Xopenex 0.63 Mg/3 Ml Neb) 0.63 mg NEB Q6R KAM Stop: 11/09/18 19:59 Last Admin: 10/11/18 07:11 Dose: 0.63 mg Documented by: [id number] Admin: 10/11/18 01:37 Dose: 0.63 mg Documented by: [id number] Admin: 10/10/18 19:17 Dose: 0.63 mg Documented by: [id number] Lorazepam (Ativan) 0.5 mg PO BID PRN PRN Reason: Anxiety Stop: 11/08/18 21:25 Last Admin: 10/11/18 08:22 Dose: 0.5 mg Documented by: [id number] Admin: 10/10/18 07:58 Dose: 0.5 mg Documented by: [id number] Thiamine HCl (Vitamin B-1) 100 mg PO QAM KAM Stop: 11/09/18 11:29 Last Admin: 10/11/18 08:12 Dose: 100 mg Documented by: [id number] Admin: 10/10/18 12:40 Dose: 100 mg Documented by: [id number] Discontinued Medications Albuterol (Ventolin Hfa) 2 puffs INH QID KAM Stop: 11/09/18 08:59 Last Admin: 10/10/18 09:18 Dose: 2 puffs Documented by: [id number] Albuterol (Ventolin 0.083% 2.5mg/3ml) 2.5 mg NEB QIDR [facility] Stop: 11/09/18 11:59 Last Admin: 10/10/18 15:21 Dose: 2.5 mg Documented by: [id number] Admin: 10/10/18 12:05 Dose: 2.5 mg Documented by: [id number] Gabapentin (Neurontin) 800 mg PO NOW ONE Stop: 10/10/18 12:01 Last Admin: 10/10/18 13:39 Dose: 800 mg Documented by: [id number] Gabapentin (Neurontin) 400 mg PO Q6H KAM Stop: 10/11/18 00:01 Last Admin: 10/11/18 00:28 Dose: 400 mg Documented by: [id number] Admin: 10/10/18 18:23 Dose: 400 mg Documented by: [id number] Piperacillin Sod/Tazobactam Sod (Zosyn) 4.5 gm in 120 mls @ 240 mls/hr IV NOW ONE Stop: 10/09/18 19:00 Last Infusion: 10/09/18 20:21 Dose: 0 mls/hr Documented by: [id number] Admin: 10/09/18 19:02 Dose: 240 mls/hr Documented by: [id number] Sodium Chloride (Nss 1000ml) 1,000 mls @ 999 mls/hr IV .Q1H1M ONE Stop: 10/09/18 19:31 Last Infusion: 10/09/18 20:05 Dose: 0 mls/hr Documented by: [id number] Admin: 10/09/18 19:01 Dose: 999 mls/hr Documented by: [id number] Lorazepam (Ativan) Confirm Administered Dose 2 mg .ROUTE .STK-MED ONE Stop: 10/09/18 16:54 Last Admin: 10/09/18 16:56 Dose: 0.5 mg Documented by: [id number] Medical Decision Making Differential Diagnosis Differential diagnosis: Etiologies such as infections, reactive airway disease, COPD, pneumonia, pleural effusion, pulmonary edema, ARDS, pneumothorax, CHF, cardiac ischemia, cardiac tamponade, dysrhythmia, anemia, pulmonary embolism, musculoskeletal, gastrointestinal process, as well as others were entertained. Medical Records Attestation: I reviewed the patient's medical records. Home Medications Current Medication List: was personally reviewed by me Laboratory Data Attestation: I reviewed the patient's lab results. Result diagrams: 10/10/18 06:58 10/11/18 06:57 Lab Results 10/09/18 10/09/18 10/09/18 Range/Units 17:53 17:53 17:54 WBC 21.66 H (4.8-10.8) K/uL RBC 4.17 L (4.2-5.4) M/uL Hgb 13.3 (12.0-16.0) g/dL POC Hgb (12.0-16.0) g/dl Hct 42.7 (37-47) % POC Hct (37-47) % MCV 102.4 H (80-100) fL MCH 31.9 (25-34) pg MCHC 31.1 L (32-36) g/dL RDW Std Deviation 50.3 H (36.4-46.3) fL RDW Coeff of Romana 13.4 (11.5-14.5) % Plt Count 212 (130-400) K/uL MPV 11.1 H (7.4-10.4) fL Immature Gran % (Auto) 0.4 % Neut % (Auto) 74.4 % Lymph % (Auto) 15.0 % [place] % (Auto) 7.7 % Eos % (Auto) 2.3 % Baso % (Auto) 0.2 % Immature Gran # (Auto) 0.08 H (0.00-0.02) K/uL Neut # (Auto) 16.15 H (1.4-6.5) K/uL Lymph # (Auto) 3.24 (1.2-3.4) K/uL [place] # (Auto) 1.66 H (0.11-0.59) K/uL Eos # (Auto) 0.49 (0-0.5) K/uL Baso # (Auto) 0.04 (0-0.2) K/uL ESR (0-21) mm/hr PT (9.0-12.0) Seconds INR (0.9-1.1) APTT (21.0-31.0) Seconds PTT Ratio VBG pH 7.32 L (7.36-7.41) VBG pCO2 74 H (38-50) mmHg VBG pO2 33 mmHg VBG HCO3 37 mmol/L VBG O2 Saturation 60.8 % VBG Base Excess 7.6 mEq/L Barometric Pressure 729.4 mm/Hg POC Sodium (135-144) mEq/L Sodium (136-145) mmol/L POC Potassium (3.3-5.0) mEq/L Potassium (3.5-5.1) mmol/L POC Chloride (101-112) mEq/L Chloride (98-107) mmol/L Carbon Dioxide (21-32) mmol/L POC Total CO2 (24-31) mEq/l Anion Gap (3-11) POC Anion Gap (16-25) mmol/L POC BUN (7-18) mg/dl BUN (7-18) mg/dl Creatinine (0.6-1.2) mg/dl POC Creatinine (0.6-1.3) mg/dl Est Cr Clr Drug Dosing ml/min Est GFR ( Amer) Est GFR (Non-Af Amer) BUN/Creatinine Ratio (10-20) Glucose (70-99) mg/dl POC Glucose (other) (70-99) mg/dl Lactate 2.5 H* (0.4-2.0) mmol/L Calcium (8.5-10.1) mg/dl POC Ioniz Calcium Don (1.12-1.32) mmol/l Magnesium (1.8-2.4) mg/dl Total Bilirubin (0.2-1) mg/dl AST (15-37) U/L ALT (12-78) U/L Alkaline Phosphatase (45-117) U/L Troponin I (0-0.045) ng/ml C-Reactive Protein (0-0.29) mg/dl Total Protein (6.4-8.2) gm/dl Albumin (3.4-5.0) gm/dl Globulin (2.5-4.0) gm/dl Albumin/Globulin Ratio (0.9-2) Procalcitonin (0-0.5) ng/ml 10/09/18 10/09/18 10/09/18 Range/Units 17:54 17:54 17:54 WBC (4.8-10.8) K/uL RBC (4.2-5.4) M/uL Hgb (12.0-16.0) g/dL POC Hgb (12.0-16.0) g/dl Hct (37-47) % POC Hct (37-47) % MCV (80-100) fL MCH (25-34) pg MCHC (32-36) g/dL RDW Std Deviation (36.4-46.3) fL RDW Coeff of Romana (11.5-14.5) % Plt Count (130-400) K/uL MPV (7.4-10.4) fL Immature Gran % (Auto) % Neut % (Auto) % Lymph % (Auto) % [place] % (Auto) % Eos % (Auto) % Baso % (Auto) % Immature Gran # (Auto) (0.00-0.02) K/uL Neut # (Auto) (1.4-6.5) K/uL Lymph # (Auto) (1.2-3.4) K/uL [place] # (Auto) (0.11-0.59) K/uL Eos # (Auto) (0-0.5) K/uL Baso # (Auto) (0-0.2) K/uL ESR (0-21) mm/hr PT 10.3 (9.0-12.0) Seconds INR 1.0 (0.9-1.1) APTT 21.7 (21.0-31.0) Seconds PTT Ratio 0.8 VBG pH (7.36-7.41) VBG pCO2 (38-50) mmHg VBG pO2 mmHg VBG HCO3 mmol/L VBG O2 Saturation % VBG Base Excess mEq/L Barometric Pressure mm/Hg POC Sodium (135-144) mEq/L Sodium 141 (136-145) mmol/L POC Potassium (3.3-5.0) mEq/L Potassium 3.8 (3.5-5.1) mmol/L POC Chloride (101-112) mEq/L Chloride 99 (98-107) mmol/L Carbon Dioxide 34 H (21-32) mmol/L POC Total CO2 (24-31) mEq/l Anion Gap 8.0 (3-11) POC Anion Gap (16-25) mmol/L POC BUN (7-18) mg/dl BUN 14 (7-18) mg/dl Creatinine 0.87 (0.6-1.2) mg/dl POC Creatinine (0.6-1.3) mg/dl Est Cr Clr Drug Dosing 49.3 ml/min Est GFR ( Amer) 75.0 Est GFR (Non-Af Amer) 64.7 BUN/Creatinine Ratio 16.1 (10-20) Glucose 159 H (70-99) mg/dl POC Glucose (other) (70-99) mg/dl Lactate (0.4-2.0) mmol/L Calcium 9.5 (8.5-10.1) mg/dl POC Ioniz Calcium Don (1.12-1.32) mmol/l Magnesium 2.5 H (1.8-2.4) mg/dl Total Bilirubin 0.7 (0.2-1) mg/dl AST 16 (15-37) U/L ALT 19 (12-78) U/L Alkaline Phosphatase 81 (45-117) U/L Troponin I < 0.015 (0-0.045) ng/ml C-Reactive Protein 1.45 H (0-0.29) mg/dl Total Protein 6.9 (6.4-8.2) gm/dl Albumin 3.3 L (3.4-5.0) gm/dl Globulin 3.6 (2.5-4.0) gm/dl Albumin/Globulin Ratio 0.9 (0.9-2) Procalcitonin 0.05 (0-0.5) ng/ml 10/09/18 10/09/18 Range/Units 17:54 17:57 WBC (4.8-10.8) K/uL RBC (4.2-5.4) M/uL Hgb (12.0-16.0) g/dL POC Hgb 14.6 (12.0-16.0) g/dl Hct (37-47) % POC Hct 43 (37-47) % MCV (80-100) fL MCH (25-34) pg MCHC (32-36) g/dL RDW Std Deviation (36.4-46.3) fL RDW Coeff of Romana (11.5-14.5) % Plt Count (130-400) K/uL MPV (7.4-10.4) fL Immature Gran % (Auto) % Neut % (Auto) % Lymph % (Auto) % [place] % (Auto) % Eos % (Auto) % Baso % (Auto) % Immature Gran # (Auto) (0.00-0.02) K/uL Neut # (Auto) (1.4-6.5) K/uL Lymph # (Auto) (1.2-3.4) K/uL [place] # (Auto) (0.11-0.59) K/uL Eos # (Auto) (0-0.5) K/uL Baso # (Auto) (0-0.2) K/uL ESR 44 H (0-21) mm/hr PT (9.0-12.0) Seconds INR (0.9-1.1) APTT (21.0-31.0) Seconds PTT Ratio VBG pH (7.36-7.41) VBG pCO2 (38-50) mmHg VBG pO2 mmHg VBG HCO3 mmol/L VBG O2 Saturation % VBG Base Excess mEq/L Barometric Pressure mm/Hg POC Sodium 140 (135-144) mEq/L Sodium (136-145) mmol/L POC Potassium 3.8 (3.3-5.0) mEq/L Potassium (3.5-5.1) mmol/L POC Chloride 94 L (101-112) mEq/L Chloride (98-107) mmol/L Carbon Dioxide (21-32) mmol/L POC Total CO2 34 H (24-31) mEq/l Anion Gap (3-11) POC Anion Gap 17.0 (16-25) mmol/L POC BUN 13 (7-18) mg/dl BUN (7-18) mg/dl Creatinine (0.6-1.2) mg/dl POC Creatinine 0.8 (0.6-1.3) mg/dl Est Cr Clr Drug Dosing ml/min Est GFR ( Amer) Est GFR (Non-Af Amer) BUN/Creatinine Ratio (10-20) Glucose (70-99) mg/dl POC Glucose (other) 170 H (70-99) mg/dl Lactate (0.4-2.0) mmol/L Calcium (8.5-10.1) mg/dl POC Ioniz Calcium Don 1.18 (1.12-1.32) mmol/l Magnesium (1.8-2.4) mg/dl Total Bilirubin (0.2-1) mg/dl AST (15-37) U/L ALT (12-78) U/L Alkaline Phosphatase (45-117) U/L Troponin I (0-0.045) ng/ml C-Reactive Protein (0-0.29) mg/dl Total Protein (6.4-8.2) gm/dl Albumin (3.4-5.0) gm/dl Globulin (2.5-4.0) gm/dl Albumin/Globulin Ratio (0.9-2) Procalcitonin (0-0.5) ng/ml Imaging Data Radiologist's Impression: Radiology results as stated below per my review and the radiologist's interpretation: XR chest 1V portable CLINICAL HISTORY: Sepsis COMPARISON STUDY: 03-10 FINDINGS: The study is limited from technical standpoint. The heart is borderline enlarged. There is a left subclavian dual-chamber central venous pacemaker. There are chronic basilar opacities. There is no overt failure. There is no lobar consolidation.[ IMPRESSION: 1. Chronic interstitial basilar opacities 2. Borderline cardiomegaly 3. No evidence of failure Electronically signed by: Brayan Tse M.D. 10/09/2018 5:44 PM ECG Data Attestation: I personally reviewed and interpreted this ECG as follows: Indication: SOB/dyspnea Rate (beats per minute): 127 Rhythm: sinus tachycardia Findings: + RBBB; no PVC Comparison ECG Date: from (02/22/17) Change: the following changes noted (Increasred rate but otherwise no change) Blood Pressure Blood Pressure Findings: Normal blood pressure Blood Pressure Disposition: did not require urgent referral MDM Narrative The patient is a 78-year-old female who presented to the emergency department for an evaluation of difficulty breathing. The patient was having severe shortness of breath. She did have increased sputum production. She had an elevated white blood cell count. Chest x-ray did not show definite pneumonia although given the patient's complaints I did feel that she may clinically been suffering from pneumonia. For this reason she was cultured and started on antibiotics. She was treated with bronchodilator therapy prior to arrival but upon arrival the patient was found to be allergic to these medications and her son recommended that we do not give her these medications. She was placed on Thermo guard which she tolerated quite well. Her oxygen saturation was much more acceptable. She was also treated with IV fluids. I discussed the patient's laboratory and radiographic studies with her. I discussed her case with the on-call [facility] hospitalist group. They have agreed to evaluate the patient in the emergency department for further management and disposition. The patient was reevaluated multiple times. She was feeling much better on subsequent reevaluation. Impression & Plan Respiratory failure, Pneumonia, Hypoxia, Tachycardia Critical Care Time Critical Care Time: Yes Total Critical Care Time: 60 I have personally spent greater than 60 minutes of critical care time in the direct management of this patient. This includes bedside care, interpretation of diagnostic studies, and testing, discussion with consultants, patient, and family members, and other required patient management activities. This 60 minutes is in excess of all separately billable procedures. Discharge Plan Visit Data *Final* Discharge Date/Time: 10/09/18 20:29 Chief Complaint: Shortness of Breath/Dyspnea Stated Complaint: RESP. DISTRESS ED Provider: Varun Mendoza Discharge Problem: Respiratory failure, Pneumonia, Hypoxia, Tachycardia Patient Disposition: Admitted As Inpatient Discharge Instructions Interventions: ED Discharge Assessment Last Done: 10/09/18 20:29 Discharge Problem: Respiratory failure Qualifiers: Chronicity: unspecified Respiratory failure complication: hypoxia Qualified Code(s): J96.91 - Respiratory failure, unspecified with hypoxia Pneumonia Qualifiers: Pneumonia type: due to unspecified organism Laterality: unspecified laterality Lung location: unspecified part of lung Qualified Code(s): J18.9 - Pneumonia, unspecified organism The scribe's documentation has been prepared under my direction and personally reviewed by me in its entirety. I confirm that the note above accurately r eflects all work, treatment, procedures, and medical decision making performed by me.
[2018-10-09 18:12] LABS: iSTAT Creatinine 0.8 mg/dl (0.6-1.3); iSTAT Hemoglobin 14.6 g/dl (12.0-16.0); iSTAT Ionized Calcium 1.18 mmol/l (1.12-1.32); iSTAT Potassium 3.8 mEq/L (3.3-5.0)
[2018-10-09 18:14] LABS: Basophils # (auto) 0.04 K/uL (0-0.2); Basophils % (auto) 0.2 %; Eosinophils # (auto) 0.49 K/uL (0-0.5); Eosinophils % (auto) 2.3 %; Hematocrit (blood only) 42.7 % (37-47); Hemoglobin 13.3 g/dL (12.0-16.0); Immature Granulocytes # (auto) 0.08 K/uL (0.00-0.02); Immature Granulocytes % (auto) 0.4 %; Lymphocytes # (auto) 3.24 K/uL (1.2-3.4); Mean Corpuscular Hemoglobin 31.9 pg (25-34); Mean Corpuscular Hgb Conc 31.1 g/dL (32-36); Mean Corpuscular Volume 102.4 fL (80-100); Mean Platelet Volume 11.1 fL (7.4-10.4); Monocytes # (auto) 1.66 K/uL (0.11-0.59); Monocytes % (auto) 7.7 %; Neutrophils # (auto) 16.15 K/uL (1.4-6.5); Neutrophils % (auto) 74.4 %; Platelet Count 212 K/uL (130-400); RDW Coefficient of Variation 13.4 % (11.5-14.5); RDW Standard Deviation 50.3 fL (36.4-46.3); Red Blood Count 4.17 M/uL (4.2-5.4); White Blood Count 21.66 K/uL (4.8-10.8)
[2018-10-09 18:25] LABS: Partial Thromboplastin Ratio 0.8; Partial Thromboplastin Time 21.7 Seconds (21.0-31.0); Prothrombin Time 10.3 Seconds (9.0-12.0)
[2018-10-09] MEDS ORDERED: PIPERACILLIN/TAZOBACTAM 4.5 GM/120 ML BAG IV ONE (18:31)
[2018-10-09] MEDS ORDERED: SODIUM CHLORIDE 0.9% 1000ML 1,000 ML IV ONE (18:31)
[2018-10-09] MEDS ORDERED: PIPERACILL/TAZOBAC CONSULT ACTIVE PRN ×2 (18:31→21:26)
[2018-10-09 18:36] LABS: Alanine Aminotransferase 19 U/L (12-78); Albumin Level 3.3 gm/dl (3.4-5.0); Aspartate Aminotransferase 16 U/L (15-37); BUN Creatinine Ratio 16.1 (10-20); Blood Urea Nitrogen 14 mg/dl (7-18); C Reactive Protein 1.45 mg/dl (0-0.29); Calcium 9.5 mg/dl (8.5-10.1); Carbon Dioxide 34 mmol/L (21-32); Chloride 99 mmol/L (98-107); Creatinine Clr Calc Pharmacy 49.3 ml/min; Est GFR (Non-African American) 64.7; Glucose 159 mg/dl (70-99); Magnesium 2.5 mg/dl (1.8-2.4); Potassium 3.8 mmol/L (3.5-5.1); Sodium 141 mmol/L (136-145)
[2018-10-09 18:41] LABS: Base Excess VBG 7.6 mEq/L; Oxygen Saturation VBG 60.8 %; pH VBG 7.32 (7.36-7.41)
[2018-10-09 18:41] LABS: Albumin Globulin Ratio 0.9 (0.9-2); Alkaline Phosphatase 81 U/L (45-117); Bilirubin,Total 0.7 mg/dl (0.2-1); Globulin 3.6 gm/dl (2.5-4.0); Total Protein 6.9 gm/dl (6.4-8.2); Troponin I < 0.015 ng/ml (0-0.045)
--- NOTE | 2018-10-09 20:01 | History & Physical Report ---
Date of Service 78 year-old female with a past medical history of chronic kidney disease stage IV, pulmonary hypertension, second-degree AV block, obesity, chronic respiratory failure, COPD, and pneumonia presents with several days of shortness of breath. She was under hospice but that is what was reversed she comes into the ER complaining of worsening shortness of breath and thick sputum, she denies fever chills nausea or vomiting. In the emergency room she was found to have an elevated white blood cell count and bibasilar interstitial opacities consistent with pneumonia. She is a DNR, DNI and she will be placed in inpatient status likely to be here more than 2 midnights. Past medical historychronic kidney disease, pulmonary hypertension, secondary AV block, obesity, chronic respiratory failure, COPD, pneumonia Past surgical history-appendectomy, tubal ligation, pacemaker placement Family historynoncontributory Social historyshe was a smoker denies alcohol or drugs. October 09, 2018 Assessment & Plan (1) Respiratory failure: (2) Pneumonia: (3) Hypoxia: (4) CKD (chronic kidney disease), stage III: (5) Pulmonary hypertension: (6) 2Nd degree AV block: (7) COPD exacerbation: (8) Obesity: Patient is a DNR, DNI. We will place her on Zosyn and Solu-Medrol, DuoNeb, high flow oxygen, palliative care consult in the morning, she was on hospice. ROS-No Headache, No Visual Changes, No Nausea, No Vomiting, No Fever, No Chills, No Neck Pain or Stiffness, No Chest Pain, No Palpitations, positive SOB, positive LEE, positive cough, positive thick white sputum, positive wheezing, No Abdominal Pain, No Diarrhea, No Hematemesis, No Hemoptysis, No Unexpected Weight Loss, No Flank pain, No Melena, No Hematochezia, No Frequency, No Urgency, No Burning, No Hematuria, No Rashes, No Diaphoresis. Appetite is Normal Physical Exam Gen-AAO x 3, mild respiratory distress, Afebrile, pleasant, obese, cooperative Head-NCAT, EOMI, PERRLA, Anicteric Sclera, No Posterior Pharyngeal Erythema Neck-Supple, No JVD, No Thyromegaly, No Masses, No LAD, No Bruits Lungs-scattered wheezing and rhonchi bilaterally mostly in the bases Chest-No S4, +S1, +S2, No S3, No Murmurs, No Rubs, No Gallops, No Ectopy Abdomen-Soft, Bowel Sounds Present, Non Tender, Non Distended, No Hepatomegaly, No Splenomegaly, No Palpable Masses, No Rebound, No Rigidity, No Guarding Musculoskeletal-Full Range of Motion Bilaterally, No CVAT Extremities-No Cyanosis, No Clubbing, No Edema, positive sores on the lower extremities Nuero-Cranial Nerves II-XII grossly intact, Motor WNL, DTRs WNL, Strength WNL, Non Focal Psych-Normal Mood History of Present Illness Primary Care Provider: Zara Corona MD Allergies Allergy/AdvReac Type Severity Reaction Status Date / Time budesonide Allergy Severe TOLERATES Verified 10/09/18 17:51 PULMICORT.Swelling of neck, face, all extremities. tetanus toxoid, adsorbed Allergy Severe SWELLING Verified 10/09/18 17:51 strawberry Allergy Mild hives Verified 10/09/18 17:51 albuterol Allergy Unknown swelling Verified 10/09/18 17:51 of face and neck Cipro Allergy Unknown UNKOWN Verified 02/20/17 09:05 ciprofloxacin Allergy Unknown UNKOWN Verified 10/09/18 17:51 doxycycline Allergy Unknown unkn Verified 10/09/18 17:51 formoterol Allergy Unknown Swelling Verified 10/09/18 17:51 of face and throat. ipratropium Allergy Unknown swelling Verified 10/09/18 17:51 of face and neck levofloxacin Allergy Unknown Flushing. Verified 10/09/18 17:51 mivacurium Allergy Unknown UNKNOWN Verified 10/09/18 17:51 mometasone furoate Allergy Unknown Swelling Verified 10/09/18 17:51 of face and throat. morphine AdvReac Unknown nausea Verified 10/09/18 17:51 Home Medications Home Medications Medication Instructions Recorded Confirmed Type albuterol sulfate 2 puff INHALATION QID 10/09/18 10/09/18 History amlodipine 2.5 mg PO DAILY 10/09/18 10/09/18 History budesonide-formoterol [Symbicort] 2 puff INHALATION BID 10/09/18 10/09/18 History diltiazem HCl 30 mg PO UD 10/09/18 10/09/18 History diltiazem HCl 60 mg PO QAM 10/09/18 10/09/18 History famotidine 40 mg PO DAILY 10/09/18 10/09/18 History hydrocodone-chlorpheniramine 5 ml PO BID 10/09/18 10/09/18 History lorazepam 0.5 mg PO BID PRN 10/09/18 10/09/18 History Past Med/Surg History Medical History CKD (chronic kidney disease), stage III (Chronic) Pulmonary hypertension (Chronic) 2Nd degree AV block (Chronic) "s/p pacemaker placement" Chronic respiratory failure (Chronic) COPD exacerbation Pneumonia Respiratory distress (Acute) Surgical History S/P appendectomy (Chronic) S/P tubal ligation (Chronic) S/P placement of cardiac pacemaker (Chronic) Family History Other Family history non-contributory Social History Preferred Language: Macedonian Feels Safe at Home: Yes Smoking Status: Former smoker Results & Data Vital Signs (Past 12 Hours) Vital Signs Temp Pulse Pulse Resp BP BP Pulse Ox 10/09/18 19:22 122 H 18 93 10/09/18 19:00 24 148/69 H 96 10/09/18 18:16 125 H 28 H 96 10/09/18 18:15 129 H 35 H 137/88 96 10/09/18 18:01 126 H 28 H 96 10/09/18 18:00 126 H 27 H 164/78 H 94 10/09/18 17:46 125 H 31 H 96 10/09/18 17:45 124 H 32 H 141/76 H 96 10/09/18 17:31 124 H 31 H 96 10/09/18 17:30 125 H 116 H 31 H 144/81 H 96 10/09/18 17:21 126 H 36 H 96 10/09/18 17:15 126 H 30 H 142/73 H 95 10/09/18 16:26 37.1 C 129 H 30 H 177/94 H 92 Allergies budesonide Allergy (Severe, Verified 10/09/18 17:51) TOLERATES PULMICORT.Swelling of neck, face, all extremities. tetanus toxoid, adsorbed Allergy (Severe, Verified 10/09/18 17:51) SWELLING strawberry Allergy (Mild, Verified 10/09/18 17:51) hives albuterol Allergy (Unknown, Verified 10/09/18 17:51) swelling of face and neck Cipro Allergy (Unknown, Verified 02/20/17 09:05) UNKOWN ciprofloxacin Allergy (Unknown, Verified 10/09/18 17:51) UNKOWN doxycycline Allergy (Unknown, Verified 10/09/18 17:51) unkn formoterol Allergy (Unknown, Verified 10/09/18 17:51) Swelling of face and throat. ipratropium Allergy (Unknown, Verified 10/09/18 17:51) swelling of face and neck levofloxacin Allergy (Unknown, Verified 10/09/18 17:51) Flushing. mivacurium Allergy (Unknown, Verified 10/09/18 17:51) UNKNOWN mometasone furoate Allergy (Unknown, Verified 10/09/18 17:51) Swelling of face and throat. morphine Adverse Reaction (Unknown, Verified 10/09/18 17:51) nausea Height/Weight/Isolation Height 5 ft 1 in Weight 70.3 kg Chemistry 10/09/18 17:54 Sodium 141 Potassium 3.8 Chloride 99 Carbon Dioxide 34 H Anion Gap 8.0 BUN 14 Creatinine 0.87 Glucose 159 H Microbiology 10/09/18 17:53 Blood Aerobic Blood Culture - Pending 10/09/18 17:53 Blood Anaerobic Blood Culture - Pending 10/09/18 17:11 Blood Aerobic Blood Culture - Pending 10/09/18 17:11 Blood Anaerobic Blood Culture - Pending (1) Respiratory failure Chronicity: unspecified Respiratory failure complication: hypoxia Qualified Code(s): J96.91 - Respiratory failure, unspecified with hypoxia (2) Pneumonia Laterality: unspecified laterality Lung location: unspecified part of lung Pneumonia type: due to unspecified organism Qualified Code(s): J18.9 - Pneumonia, unspecified organism
[2018-10-09] MEDS ORDERED: [UNRECOGNIZED DRUG - OTHER] PO SCH (21:26)
[2018-10-09] MEDS ORDERED: NITROGLYCERIN SL 0.4 MG/TAB TAB SL PRN (21:26)
[2018-10-09] MEDS ORDERED: POLYETHYLENE (MIRALAX) 17 GM PACK PO PRN (21:26)
[2018-10-09] MEDS ORDERED: ACETAMINOPHEN 325 MG TAB PO PRN (21:26)
[2018-10-09] MEDS: HEPARIN SOD 5,000 UNIT/0.5 ML VIAL SQ SCH (23:36)
[2018-10-09] MEDS: PIPERACILLIN/TAZOBACTAM 3.375 GM in DEXTROSE 5% 100 ML IV SCH (23:36)
[2018-10-09] MEDS: methylPREDNISolone 40 MG in SYRINGE 0 ML IV SCH (23:37)
[2018-10-09] MEDS: BUDESONIDE/FORMOTEROL FUMARATE 160/4.5 60 PUFFS/INHALER INH SCH (23:37)
[2018-10-09] MEDS: dilTIAZem HCL 30 MG TAB PO SCH (23:37)
[2018-10-10] MEDS: methylPREDNISolone 40 MG in SYRINGE 0 ML IV SCH ×4 (04:51→21:51)
[2018-10-10 05:40] LABS: Appearance Urine Turbid (Clear); Bilirubin Urine Negative (Negative); Blood Urine Negative (Negative); Color Urine Yellow; Epithelial Cell Urine Auto >30 /lpf (0-5); Glucose Urine UA 3+ (Negative); Ketones Urine 1+ (Negative); Leukocyte Esterase Urine Negative (Negative); Nitrite Urine Positive (Negative); Protein Urine Negative (Negative); Specific Gravity Urine 1.021 (1.000-1.030); Urobilinogen Urine Negative (Negative); pH Urine 7.5 (4.5-7.5)
[2018-10-10] MEDS: HEPARIN SOD 5,000 UNIT/0.5 ML VIAL SQ SCH ×3 (06:03→21:51)
[2018-10-10 06:05] LABS: RBC Urine Automated 0-4 /hpf (0-4)
[2018-10-10 06:07] LABS: Bacteria Urine Automated 2+ (Negative)
[2018-10-10 07:16] LABS: Hematocrit (blood only) 41.8 % (37-47); Mean Corpuscular Hemoglobin 31.2 pg (25-34); Mean Corpuscular Hgb Conc 31.1 g/dL (32-36); Mean Corpuscular Volume 100.2 fL (80-100); Platelet Count 184 K/uL (130-400); RDW Coefficient of Variation 13.2 % (11.5-14.5); RDW Standard Deviation 48.1 fL (36.4-46.3); Red Blood Count 4.17 M/uL (4.2-5.4); White Blood Count 17.22 K/uL (4.8-10.8)
[2018-10-10] MEDS: BUDESONIDE/FORMOTEROL FUMARATE 160/4.5 60 PUFFS/INHALER INH SCH ×2 (07:45→19:56)
[2018-10-10 07:51] LABS: BUN Creatinine Ratio 15.9 (10-20); Calcium 9.3 mg/dl (8.5-10.1); Creatinine Clr Calc Pharmacy 59.7 ml/min; Est GFR (African American) 94.3; Est GFR (Non-African American) 81.3; Potassium 4.2 mmol/L (3.5-5.1)
[2018-10-10] MEDS: GUAIFENESIN/CODEINE 100MG/10MG 5ML UDC PO PRN (07:58)
[2018-10-10] MEDS: LORazepam 0.5 MG TAB PO PRN (07:58)
[2018-10-10] MEDS: PIPERACILLIN/TAZOBACTAM 3.375 GM in DEXTROSE 5% 100 ML IV SCH ×2 (08:00→17:03)
[2018-10-10] MEDS: dilTIAZem HCL 30 MG TAB PO SCH ×3 (08:01→19:56)
[2018-10-10] MEDS: AMLODIPINE BESYLATE 5 MG TAB PO SCH (08:02)
[2018-10-10] MEDS: FAMOTIDINE 20 MG TAB PO SCH (08:03)
[2018-10-10] MEDS ORDERED: ALBUTEROL HFA 8 GM INHALER INH SCH (09:00)
[2018-10-10] MEDS ORDERED: ALBUTEROL 0.083% NEBU SOLN 3 ML VIAL NEB PRN (11:29)
[2018-10-10] MEDS ORDERED: GABAPENTIN 400 MG CAP PO ONE (12:00)
[2018-10-10] MEDS: ALBUTEROL 0.083% NEBU SOLN 3 ML VIAL NEB SCH ×3 (12:01→15:21)
[2018-10-10] MEDS ORDERED: GABAPENTIN 800MG ALCOHOL WITHDRAWAL LOAD PO STA (12:39)
[2018-10-10] MEDS: FOLIC ACID 1 MG TAB PO SCH (12:39)
[2018-10-10] MEDS: THIAMINE HCL 100 MG TAB PO SCH (12:40)
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
--- NOTE | 2018-10-10 17:37 | Hospitalist Progress Note ---
Date of Service October 10, 2018 Assessment & Plan (1) Respiratory failure: Acute on chronic respiratory failure with Hypoxia/Hypercapnia Acute on Chronic COPD Exacerbation Chronic Oxygen dependency: 4.5L at baseline H/O advanced COPD, previously on hospice services CXR: Chronic interstitial basilar opacities. Borderline cardiomegaly. No evidence of failure Continue IV Zosyn Oxygen support, Nebs, Glucocorticoids Blood cultures:pending Aspiration precautions May need pulmonology evaluation if clinically does not improve Palliative care consulted to address goals of care (2) CKD (chronic kidney disease), stage III: Creatinine at baseline Avoid nephrotoxic agents as able Alcohol Use Disorder Drinks Wine on daily basis as per Patient's Son Continue Thiamine, Folic Acid Gabapentin Protocol Monitor for Withdrawal (3) Pulmonary hypertension: (4) 2Nd degree AV block: R/O UTI: On Zosyn Urine Culture:pending DVT Px: Heparin SQ Code Status: DNI/DNR Disposition: Needs Placement Subjective Patient is seen and examined at bedside Noted to to be in mild respiratory distress this morning Complains of cough with greenish expectoration, shortness of breath, right-sided chest pain associated with cough Saturating well on 4 L of nasal cannula No other complaints Review of Systems Review of Systems: All systems reviewed & are unremarkable except as noted in HPI & below Physical Exam Physical Exam: Physical Exam: Vitals signs as noted above General Appearance:Chronic ill appearing, mild resp distress Head: normocephalic, Atraumatic Eyes: normal inspection, EOMI, + Pursed lip breathing Neck: supple, Trachea midline Respiratory/Chest: Decreased breath sounds, scattered wheezing Cardiovascular: S1, S2, No murmur, +Tachycardia Abdomen/GI:Soft, Non tender, Bowel sounds present Extremities/Musculoskelatal:normal inspection, no edema Neurologic/Psych:AAOX3, grossly no focal neurological deficits Skin: normal color, warm Results & Data Vital Signs (Past 12 Hours) Vital Signs Temp Pulse Resp BP Pulse Ox 10/10/18 15:44 36.8 C 118 H 20 125/76 90 10/10/18 15:22 113 H 18 94 10/10/18 12:06 110 H 22 92 10/10/18 11:34 36.8 C 108 H 18 159/76 H 96 10/10/18 08:26 91 10/10/18 06:53 36.7 C 114 H 24 165/78 H 96 Laboratory Results Short CBC 10/09/18 10/10/18 Range/Units 17:54 06:58 WBC 21.66 H 17.22 H (4.8-10.8) K/uL Hgb 13.3 13.0 (12.0-16.0) g/dL Hct 42.7 41.8 (37-47) % Plt Count 212 184 (130-400) K/uL BMP 10/09/18 10/10/18 17:54 06:58 Sodium 141 140 Potassium 3.8 4.2 Chloride 99 101 Carbon Dioxide 34 H 34 H BUN 14 12 Creatinine 0.87 0.72 Glucose 159 H 179 H Calcium 9.5 9.3 Cardiac Enzymes 10/09/18 Range/Units 17:54 Troponin I < 0.015 (0-0.045) ng/ml Liver Function 10/09/18 Range/Units 17:54 Total Bilirubin 0.7 (0.2-1) mg/dl AST 16 (15-37) U/L ALT 19 (12-78) U/L Alkaline Phosphatase 81 (45-117) U/L Albumin 3.3 L (3.4-5.0) gm/dl Urine 10/10/18 Range/Units Unknown Urine Color Yellow Urine Appearance Turbid A (Clear) Urine pH 7.5 (4.5-7.5) Ur Specific [place] 1.021 (1.000-1.030) Urine Protein Negative (Negative) Urine Glucose (UA) 3+ H (Negative) Diagnostic Findings CXR: 1. Chronic interstitial basilar opacities 2. Borderline cardiomegaly 3. No evidence of failure (1) Respiratory failure Chronicity: unspecified Respiratory failure complication: hypoxia Qualified Code(s): J96.91 - Respiratory failure, unspecified with hypoxia
[2018-10-10] MEDS: GABAPENTIN 400 MG CAP PO SCH (18:23)
[2018-10-10] MEDS: LEVALBUTEROL HCL 0.63 MG/3 ML NEB NEB SCH (19:17)
[2018-10-11] MEDS: PIPERACILLIN/TAZOBACTAM 3.375 GM in DEXTROSE 5% 100 ML IV SCH ×3 (00:28→15:36)
[2018-10-11] MEDS: GABAPENTIN 400 MG CAP PO SCH ×3 (00:28→15:37)
[2018-10-11] MEDS: LEVALBUTEROL HCL 0.63 MG/3 ML NEB NEB SCH ×3 (01:37→15:04)
[2018-10-11] MEDS: methylPREDNISolone 40 MG in SYRINGE 0 ML IV SCH ×3 (05:15→20:41)
[2018-10-11 07:46] LABS: BUN Creatinine Ratio 19.8 (10-20); Calcium 9.5 mg/dl (8.5-10.1); Creatinine Clr Calc Pharmacy 54.9 ml/min; Est GFR (African American) 86.9; Magnesium 2.3 mg/dl (1.8-2.4); Potassium 4.6 mmol/L (3.5-5.1)
[2018-10-11] MEDS: HEPARIN SOD 5,000 UNIT/0.5 ML VIAL SQ SCH ×3 (07:49→20:42)
[2018-10-11] MEDS: GUAIFENESIN/CODEINE 100MG/10MG 5ML UDC PO PRN ×2 (08:06→18:42)
[2018-10-11] MEDS: AMLODIPINE BESYLATE 5 MG TAB PO SCH (08:11)
[2018-10-11] MEDS: THIAMINE HCL 100 MG TAB PO SCH (08:12)
[2018-10-11] MEDS: dilTIAZem HCL 30 MG TAB PO SCH ×3 (08:12→21:07)
[2018-10-11] MEDS: FOLIC ACID 1 MG TAB PO SCH (08:12)
[2018-10-11] MEDS: FAMOTIDINE 20 MG TAB PO SCH (08:13)
[2018-10-11] MEDS: BUDESONIDE/FORMOTEROL FUMARATE 160/4.5 60 PUFFS/INHALER INH SCH ×2 (08:13→20:40)
[2018-10-11] MEDS: LORazepam 0.5 MG TAB PO PRN ×2 (08:22→18:42)
[2018-10-11] MEDS ORDERED: HYDROCORTISONE HC 2.5% CRM 30GM TUBE EXT PRN (10:16)
[2018-10-11] MEDS: NYSTATIN OINT 15 GM TUBE EXT SCH ×2 (11:17→21:07)
[2018-10-11] MEDS: ALBUTEROL HFA 8 GM INHALER INH PRN (13:00)
[2018-10-11] MEDS ORDERED: LEVALBUTEROL HCL 0.63 MG/3 ML NEB NEB PRN (14:17)
--- NOTE | 2018-10-11 15:25 | Hospitalist Progress Note ---
Date of Service October 11, 2018 Assessment & Plan (1) Respiratory failure: Acute on chronic respiratory failure with Hypoxia/Hypercapnia Acute on Chronic COPD Exacerbation Chronic Oxygen dependency: 4.5L at baseline H/O advanced COPD, previously on hospice services CXR: Chronic interstitial basilar opacities. Borderline cardiomegaly. No evidence of failure Continue IV Zosyn for now Oxygen support, Nebs, Glucocorticoids Taper down steroid Blood cultures: No growth to date Aspiration precautions Refuses pulmonology evaluation Palliative care consulted to address goals of care (2) CKD (chronic kidney disease), stage III: Creatinine at baseline Avoid nephrotoxic agents as able Alcohol Use Disorder Drinks Wine on daily basis as per Patient's Son Continue Thiamine, Folic Acid Gabapentin Protocol Monitor for Withdrawal (3) Pulmonary hypertension: (4) 2Nd degree AV block: R/O UTI: On Zosyn Urine Culture: No growth to date Continue antibiotics until final cultures DVT Px: Heparin SQ Code Status: DNI/DNR Disposition: Needs Placement Subjective Patient is seen and examined at bedside States having significant shortness of breath after getting cleaned up this morning Cough much improved Refuses nebulizers Prefers not to see a travel med surg rn No other complaints Review of Systems Review of Systems: All systems reviewed & are unremarkable except as noted in HPI & below Physical Exam Physical Exam: Physical Exam: Vitals signs as noted above General Appearance:Chronic ill appearing, mild resp distress Head: normocephalic, Atraumatic Eyes: normal inspection, EOMI, + Pursed lip breathing Neck: supple, Trachea midline Respiratory/Chest: Decreased breath sounds, CTA Cardiovascular: S1, S2, No murmur, +Tachycardia Abdomen/GI:Soft, Non tender, Bowel sounds present Extremities/Musculoskelatal:normal inspection, no edema Neurologic/Psych:AAOX3, grossly no focal neurological deficits Skin: normal color, warm Results & Data Vital Signs (Past 12 Hours) Vital Signs Temp Pulse Pulse Resp BP Pulse Ox 10/11/18 13:08 36.8 C 108 H 16 144/74 H 10/11/18 08:33 103 H 10/11/18 07:12 116 H 22 94 10/11/18 07:07 36.3 C L 116 H 19 147/83 H 92 10/11/18 04:00 36.7 C 114 H 19 128/73 91 Laboratory Results [facility] 10/11/18 06:57 Sodium 140 Potassium 4.6 Chloride 101 Carbon Dioxide 35 H BUN 15 Creatinine 0.77 Glucose 192 H Calcium 9.5 (1) Respiratory failure Chronicity: unspecified Respiratory failure complication: hypoxia Qualified Code(s): J96.91 - Respiratory failure, unspecified with hypoxia
[2018-10-12] MEDS: GABAPENTIN 400 MG CAP PO SCH ×3 (00:11→23:45)
[2018-10-12] MEDS: PIPERACILLIN/TAZOBACTAM 3.375 GM in DEXTROSE 5% 100 ML IV SCH ×4 (00:11→23:45)
[2018-10-12] MEDS: HEPARIN SOD 5,000 UNIT/0.5 ML VIAL SQ SCH ×3 (05:27→19:51)
[2018-10-12 05:41] LABS: Hematocrit (blood only) 38.6 % (37-47); Mean Corpuscular Hemoglobin 31.9 pg (25-34); Mean Corpuscular Hgb Conc 31.1 g/dL (32-36); Mean Corpuscular Volume 102.7 fL (80-100); Mean Platelet Volume 11.4 fL (7.4-10.4); Platelet Count 189 K/uL (130-400); RDW Coefficient of Variation 13.6 % (11.5-14.5); Red Blood Count 3.76 M/uL (4.2-5.4); White Blood Count 26.25 K/uL (4.8-10.8)
[2018-10-12 06:22] LABS: BUN Creatinine Ratio 23.7 (10-20); Calcium 9.2 mg/dl (8.5-10.1); Est GFR (African American) 66.6; Est GFR (Non-African American) 57.4; Potassium 3.8 mmol/L (3.5-5.1)
[2018-10-12] MEDS: LORazepam 0.5 MG TAB PO PRN ×2 (08:07→23:44)
[2018-10-12] MEDS: methylPREDNISolone 40 MG in SYRINGE 0 ML IV SCH ×2 (08:08→19:49)
[2018-10-12] MEDS: FOLIC ACID 1 MG TAB PO SCH (08:09)
[2018-10-12] MEDS: FAMOTIDINE 20 MG TAB PO SCH (08:09)
[2018-10-12] MEDS: NYSTATIN OINT 15 GM TUBE EXT SCH ×2 (08:10→19:50)
[2018-10-12] MEDS: THIAMINE HCL 100 MG TAB PO SCH (08:10)
[2018-10-12] MEDS: BUDESONIDE/FORMOTEROL FUMARATE 160/4.5 60 PUFFS/INHALER INH SCH ×2 (08:12→19:51)
[2018-10-12] MEDS: AMLODIPINE BESYLATE 5 MG TAB PO SCH (09:07)
[2018-10-12] MEDS: dilTIAZem HCL 30 MG TAB PO SCH ×3 (09:07→19:50)
[2018-10-12] MEDS ORDERED: SOD PHOSPHATE/SOD BIPHOSPHATE ENEMA 132 ML BTL PR PRN (13:14)
[2018-10-12] MEDS ORDERED: BISACODYL 10 MG SUPP PR PRN (13:14)
[2018-10-12] MEDS: NYSTATIN SUSP 500,000 U/5 ML UDC PO SCH ×3 (13:39→19:49)
[2018-10-12] MEDS: TIOTROPIUM BROMIDE 5 PUFF/90 MCG INH INH SCH (13:39)
--- NOTE | 2018-10-12 15:21 | Ultrasound Report ---
US venous doppler LE BI HISTORY: pain behind right knee. Patient very sedentary. COMPARISON STUDY: None. FINDINGS: There is normal compressibility, flow, and augmentation within the bilateral lower extremit y deep venous systems. IMPRESSION: No DVT within the right or left lower extremity. The above report was generated using voice recognition software. It may contain grammatical, syntax or spelling errors. Electronically signed by: Neeraj Matta M.D. 10/12/2018 3:20 PM
--- NOTE | 2018-10-12 18:10 | Hospitalist Progress Note ---
Date of Service October 12, 2018 Assessment & Plan (1) Respiratory failure: Acute on chronic respiratory failure with Hypoxia/Hypercapnia Acute on Chronic COPD Exacerbation Chronic Oxygen dependency: 4.5L at baseline H/O advanced COPD, previously on hospice services CXR: Chronic interstitial basilar opacities. Borderline cardiomegaly. No evidence of failure Continue IV Zosyn Oxygen support, Glucocorticoids Refuses nebulizers, prefers to use inhalers Taper down steroid as able Blood cultures: No growth to date Aspiration precautions Agrees to be evaluated by courtesy clerk today Palliative care consulted to address goals of care Ipratropium added to current regimen (2) CKD (chronic kidney disease), stage III: Creatinine at baseline Avoid nephrotoxic agents as able Alcohol Use Disorder Drinks Wine on daily basis as per Patient's Son Continue Thiamine, Folic Acid Gabapentin Protocol Monitor for Withdrawal (3) Pulmonary hypertension: (4) 2Nd degree AV block: R/O UTI: Ruled out Urine Culture: No growth DVT Px: Heparin SQ Code Status: DNI/DNR Disposition: Needs Placement Subjective Patient is seen and examined at bedside Complains of shortness of breath, cough which is unchanged from yesterday No new complaints Agrees to be evaluated by courtesy clerk today Has been refusing nebulizers Prefers to use inhalers Review of Systems Review of Systems: All systems reviewed & are unremarkable except as noted in HPI & below Physical Exam Physical Exam: Physical Exam: Vitals signs as noted above General Appearance:Chronic ill appearing, mild resp distress Head: normocephalic, Atraumatic Eyes: normal inspection, EOMI, + Pursed lip breathing Neck: supple, Trachea midline Respiratory/Chest: Decreased breath sounds, CTA Cardiovascular: S1, S2, No murmur, +Tachycardia Abdomen/GI:Soft, Non tender, Bowel sounds present Extremities/Musculoskelatal:normal inspection, no edema Neurologic/Psych:AAOX3, grossly no focal neurological deficits Skin: normal color, warm Results & Data Vital Signs (Past 12 Hours) Vital Signs Temp Pulse Pulse Resp BP Pulse Ox 10/12/18 15:51 36.8 C 110 H 18 167/69 H 96 10/12/18 12:52 37.1 C 121 H 26 H 170/79 H 91 10/12/18 07:15 104 H 10/12/18 06:30 36.7 C 107 H 16 135/81 92 Laboratory Results Short CBC 10/12/18 Range/Units 05:23 WBC 26.25 H (4.8-10.8) K/uL Hgb 12.0 (12.0-16.0) g/dL Hct 38.6 (37-47) % Plt Count 189 (130-400) K/uL BMP 10/12/18 05:23 Sodium 141 Potassium 3.8 D Chloride 100 Carbon Dioxide 34 H BUN 23 H D Creatinine 0.96 Glucose 228 H Calcium 9.2 (1) Respiratory failure Chronicity: unspecified Respiratory failure complication: hypoxia Qualified Code(s): J96.91 - Respiratory failure, unspecified with hypoxia
--- NOTE | 2018-10-12 23:10 | Consultation Report ---
DATE OF CONSULTATION: 10/12/2018 DATE OF CONSULTATION: 10/12/2018 TIME: 11:50 a.m. REPORT OF CONSULTATION: The patient was seen in room 244. She is a 78-year-old female who has a longstanding history of severe COPD. She has a history of respiratory failure in the past. She was hospitalized in January 2017 with respiratory failure. She is not the best historian. When I asked her why she came to the Emergency Room when she did, she said it was because of pain in her shoulders and her right leg. She did admit to being short of breath at rest. When I asked her when her breathing got worse, she said a year ago. Obviously something more acute than that must have occurred. She is short of breath on a regular basis. She is essentially bedridden. She states that her son who lives with her let her get out of bed. The most she does is get from the bed to commode to have a bowel movement. She seldom gets out to see Dr. Corona who is her family doctor. She states in addition to having difficulty going across her 180 dollars for transportation each time. She admits to being short of breath at rest. She is short of breath with very minimal exertion. She wheezes regularly. She has mucus which she states is now clear. The patient insists that when she takes nebulizer treatments, it makes her mucus change color and thus she is convinced that they are not good for her. Likewise, she takes Symbicort, but she states "rods my teeth." She has been on prednisone for an extended period of time. This would be for years in all likelihood. She was uncertain of her prednisone dose. It is not listed at all on her home medicines, but she states she was on 1 tablet per day. She thought it might have been 5 mg, although in the past she had been on 10 mg. The patient likes to use her Ventolin inhaler. She feels that gives her more relief than anything. She will take typically 2 puffs 4 times per day. She will take the Symbicort somewhat. She is complaining of pain behind the right leg. She denied a prior history of blood clots in her legs. She has had large areas of ecchymosis on her arm secondary to the blood pressure cuff. This is most noticeable on the left. She apparently asked to have any IVs or heparin locks be in her legs because the veins in her arms are bad. The patient states that she had a bad coughing spell last evening. She could not stop coughing for quite a while. She does complain of chest pains. She states this seems to be when she eats too much. Pain she points to is in the right lower chest area. She states her appetite is decreased. She feels full very quickly. She denies any bowel problems. The patient previously had a history of smoking 3/4 packs per day for 45 years, but she quit smoking about 13 years ago. Alcohol is that she drinks 2 glasses of wine per day. PAST SURGICAL HISTORY: 1. Pacemaker insertion. 2. Appendectomy. 3. Tubal ligation. PAST MEDICAL HISTORY: 1. Chronic kidney disease. 2. Pulmonary hypertension. 3. COPD. 4. Chronic respiratory failure. 5. Hypertension. 6. Anxiety. 7. Umbilical hernia. ALLERGIES: NUMEROUS LISTED ALLERGIES INCLUDING BUDESONIDE, TETANUS, CIPRO, DOXYCYCLINE, FORMOTEROL, IPRATROPIUM, LEVOFLOXACIN, MIVACURIUM, AND MOMETASONE. MORPHINE IS ALSO LISTED. CURIOUSLY, SHE IS LISTED HAS ALLERGY TO LEVALBUTEROL AND YET SHE USES VENTOLIN HFA, WHICH SHE IS JUST ABOUT HER FAVORED PULMONARY DRUG. FAMILY HISTORY: Mother , had hypertension. Father , had complications following a hip fracture. 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 REVIEW OF SYSTEMS: The patient complains of difficulty with vision. She blames the prednisone she is on. Denies ENT complaints. Complains of teeth in very poor repair which she blames on Symbicort. Appetite is decreased as noted. She thinks she has lost weight, but she has not been weighed for a long time. Denies bowel complaints. She has difficulty holding her urine. The patient's muscles are overall weak. She complains of chronic pain in shoulders and back. MEDICATIONS AT HOME: 1. Ventolin HFA 2 puffs q.i.d. 2. Amlodipine 2.5 mg daily. 3. Symbicort 2 puffs b.i.d., but she states she actually takes 1 puff b.i.d. 4. Diltiazem 30 mg daily along with 60 mg daily. 5. Famotidine 40 mg daily. 6. Hydrocodone-chlorpheniramine 5 mg b.i.d. 7. Lorazepam 0.5 b.i.d. p.r.n. PHYSICAL EXAMINATION: VITAL SIGNS: The patient is a 78-year-old female who was cooperative, alert and oriented. She was fairly comfortable at rest. Weight is listed as 68.3 kilograms. I am assuming this weight was obtained from the bed scale. HEENT: Eye exam suggested cataract formation bilaterally. Nares were clear. Mouth exam showed dentures. There was moderate crowding with a Mallampati grade 2-3. NECK: Palpation of the neck reveals no lymph nodes. CARDIAC: Rate 109 per minute. Rhythm was regular. Blood pressure 135/81. LUNGS: Lung thomas revealed severely diminished breath sounds. I ultimately was able to get the patient to take deep breaths. This resulted in a coughing spell and feeling very tight which lasted for a few minutes. Respiratory rate 20 breaths per minute. Saturation 92% on 4 liter nasal cannula. ABDOMEN: Obese. She has a small umbilical hernia. She complains of tenderness to palpation in the left lower quadrant and in the periumbilical area. Bowel sounds were present. EXTREMITIES: Reveals a large area of ecchymosis in the left upper arm secondary to the blood pressure cuffs. She has mild ecchymosis elsewhere. This is likely related to prednisone and marked thinning of her tissues. She does complain of pain to palpation in the right lower leg, though I did not feel any definite findings. LABORATORY DATA: White count today elevated at 26.25. Two days ago, the white count was 17.22. Admission white count 21.66. Hemoglobin today is 12. Platelets 189,000. Coags were normal. Venous blood gas on admission showed 7.32 pH, pCO2 74 and pO2 of 33. The pCO2 was higher than her prior venous pCO2 done in 2017. Electrolytes today show sodium 141, potassium 3.8, chloride 100, bicarbonate 34. BUN 23 with a creatinine 0.96. Blood sugar today 228. C-reactive protein was elevated at 1.45. Bilirubin, AST, ALT and alkaline phosphatase were all normal. Urine showed 3+ glucose, positive nitrites, 2+ bacteria. Chest x-ray on admission showed chronic interstitial basilar opacities. These are relatively mild. No evidence of acute CHF. Urine culture showed no growth. Blood culture showed no growth. IMPRESSION: 1. Respiratory failure -- acute on chronic with hypoxia and hypercarbia. 2. Chronic obstructive pulmonary disease exacerbation. 3. Kyphosis. 4. Pain in the right leg behind the knee -- rule out deep vein thrombosis. COMMENTS AND RECOMMENDATIONS: The patient is a difficult management case because of her intolerance or perceived intolerance of medications. She is on Zosyn, which I have no objection to, although I am not certain that she has an infection anywhere. She is on methylprednisolone. The patient made a point of indicating she wanted to be weaned off of prednisone. I explained to her having been on that for a couple of years, this would need to be done very slowly, perhaps 1 mg per month. It is somewhat perplexing the prednisone did not show up on her home medications; however. She has neb treatments ordered p.r.n. only because she insist they do not work as well as her Ventolin inhaler. She seems to be accepting of the Symbicort, even though she only uses 1 puff twice a day. I would suggest a long-acting muscarinic antagonist such as Spiriva, Respimat or HandiHaler daily. The patient from reading the chart indicated that she was hoping to go to a [facility] at the time of her admission. However, she states now she does not want that, she wants to go home. The patient unfortunately did very poor with BiPAP in the Emergency Room. She states she is extremely claustrophobic and I do not think she would consider getting treated as an outpatient with BiPAP or noninvasive ventilator.
[2018-10-12] MEDS: GUAIFENESIN/CODEINE 100MG/10MG 5ML UDC PO PRN (23:44)
[2018-10-13] MEDS: HEPARIN SOD 5,000 UNIT/0.5 ML VIAL SQ SCH ×3 (06:33→20:52)
[2018-10-13] MEDS: LORazepam 0.5 MG TAB PO PRN ×2 (06:41→14:22)
[2018-10-13] MEDS: GUAIFENESIN/CODEINE 100MG/10MG 5ML UDC PO PRN (06:41)
[2018-10-13 07:53] LABS: Hematocrit (blood only) 37.2 % (37-47); Hemoglobin 11.9 g/dL (12.0-16.0); Mean Corpuscular Hemoglobin 32.2 pg (25-34); Mean Corpuscular Volume 100.8 fL (80-100); Mean Platelet Volume 11.2 fL (7.4-10.4); Platelet Count 173 K/uL (130-400); RDW Coefficient of Variation 13.6 % (11.5-14.5); RDW Standard Deviation 49.7 fL (36.4-46.3); Red Blood Count 3.69 M/uL (4.2-5.4); White Blood Count 17.72 K/uL (4.8-10.8)
[2018-10-13 08:20] LABS: Creatinine Clr Calc Pharmacy 54.3 ml/min; Est GFR (African American) 85.6; Est GFR (Non-African American) 73.8
[2018-10-13] MEDS: PIPERACILLIN/TAZOBACTAM 3.375 GM in DEXTROSE 5% 100 ML IV SCH ×2 (08:23→16:23)
[2018-10-13] MEDS: methylPREDNISolone 40 MG in SYRINGE 0 ML IV SCH ×2 (08:23→20:50)
[2018-10-13] MEDS: TIOTROPIUM BROMIDE 5 PUFF/90 MCG INH INH SCH (08:29)
[2018-10-13] MEDS: BUDESONIDE/FORMOTEROL FUMARATE 160/4.5 60 PUFFS/INHALER INH SCH ×2 (08:30→20:50)
[2018-10-13] MEDS: THIAMINE HCL 100 MG TAB PO SCH (08:30)
[2018-10-13] MEDS: AMLODIPINE BESYLATE 5 MG TAB PO SCH (08:31)
[2018-10-13] MEDS: FAMOTIDINE 20 MG TAB PO SCH (08:31)
[2018-10-13] MEDS: dilTIAZem HCL 30 MG TAB PO SCH ×3 (08:32→20:46)
[2018-10-13] MEDS: FOLIC ACID 1 MG TAB PO SCH (08:33)
[2018-10-13] MEDS: NYSTATIN OINT 15 GM TUBE EXT SCH ×2 (08:33→20:50)
[2018-10-13] MEDS: NYSTATIN SUSP 500,000 U/5 ML UDC PO SCH ×4 (08:39→20:47)
--- NOTE | 2018-10-13 15:36 | Palliative Care Progress Note ---
Date of Service October 13, 2018 Assessment & Plan (1) Goals of care, counseling/discussion: -Patient has no new complaints today, but states overall she feels like she is getting worse. -Patient states she would like to go home with hospice. sales consultant residential manager met with patient and will make referral to [facility] per patient's request. Do not know if patient will qualify for hospice at this time due to lack of decline since last hospice benefit period. However, they may be able to take her. -Patient had previously voiced that she had concerns about her son, Marshall. She now states that she will hire private duty caregivers through [facility] home care. Case management following. -Will continue to follow as needed. (2) Respiratory failure: (3) Pneumonia: (4) Obesity: Subjective Patient has no new complaints today. Still has SOB and LEE. See A&P. Review of Systems Review of Systems: + weakness + worsening vision + loose teeth + cough, + dyspnea, + dyspnea on exertion no chest pain no abdominal pain and no nausea + urinary incontinence no confusion + anxiety Physical Exam Constitutional: + ill appearing (chronically) and + obese; no acute distress ENMT: Mouth: + poor dentition Respiratory: + labored breathing (mildly at rest) Auscultation: + diminished lung sounds Cardiovascular: Rate/Rhythm: regular rate and regular rhythm Extremities: no edema Gastrointestinal (Abdomen): Inspection/Auscultation: abdomen normal to inspection and normal bowel sounds Percussion/Palpation: abdomen soft; abdomen nontender Neurologic: moves all extremities and awake; not confused Psychiatric: Orientation: alert and oriented x 3 Insight: good insight Results & Data Vital Signs (Past 12 Hours) Vital Signs Temp Pulse Pulse Resp BP Pulse Ox 10/13/18 11:29 36.4 C L 94 H 18 152/78 H 92 10/13/18 08:17 111 H 10/13/18 06:33 36.7 C 111 H 22 165/92 H 92 10/13/18 03:54 36.5 C 92 H 20 125/73 96 Time Spent Midlevel 35 minutes with >50% of the time spent at bedside with patient and IDT discussing GOC and POC. (1) Respiratory failure Chronicity: unspecified Respiratory failure complication: hypoxia Qualified Code(s): J96.91 - Respiratory failure, unspecified with hypoxia (2) Pneumonia Laterality: unspecified laterality Lung location: unspecified part of lung Pneumonia type: due to unspecified organism Qualified Code(s): J18.9 - Pneumonia, unspecified organism
[2018-10-13] MEDS ORDERED: NON-FORMULARY MEDICATION (Melatonin 5 MG) PO PRN (17:06)
--- NOTE | 2018-10-13 17:15 | Hospitalist Progress Note ---
Date of Service October 13, 2018 Assessment & Plan (1) Respiratory failure: Acute on chronic respiratory failure with Hypoxia/Hypercapnia Acute on Chronic COPD Exacerbation Chronic Oxygen dependency: 4.5L at baseline H/O advanced COPD, previously on hospice services CXR: Chronic interstitial basilar opacities. Borderline cardiomegaly. No evidence of failure Received IV Zosyn Day #5/5 Oxygen support, Glucocorticoids Refuses nebulizers, prefers to use inhalers Taper down steroid as able Blood cultures: No growth to date Aspiration precautions Appreciate pulmonology input Palliative care consulted to address goals of care Ipratropium added to current regimen Will consult hospice service as per patient's request (2) CKD (chronic kidney disease), stage III: Creatinine at baseline Avoid nephrotoxic agents as able Alcohol Use Disorder Drinks Wine on daily basis as per Patient's Son Continue Thiamine, Folic Acid Gabapentin Protocol Monitor for Withdrawal (3) Pulmonary hypertension: (4) 2Nd degree AV block: R/O UTI: Ruled out Urine Culture: No growth DVT Px: Heparin SQ Code Status: DNI/DNR Disposition: To be determined Prefers to be discharged home with hospice services arranged Case management following Subjective Patient is seen and examined at bedside Subjective feels that her shortness of breath is worsening Requesting for hospice services arranged Cough much improved No new complaints Denies any chest pain, nausea, abdominal pain Review of Systems Review of Systems: All systems reviewed & are unremarkable except as noted in HPI & below Physical Exam Physical Exam: Physical Exam: Vitals signs as noted above General Appearance:Chronic ill appearing, mild resp distress Head: normocephalic, Atraumatic Eyes: normal inspection, EOMI, + Pursed lip breathing Neck: supple, Trachea midline Respiratory/Chest: Decreased breath sounds, CTA Cardiovascular: S1, S2, No murmur Abdomen/GI:Soft, Non tender, Bowel sounds present Extremities/Musculoskelatal:normal inspection, no edema Neurologic/Psych:AAOX3, grossly no focal neurological deficits Skin: normal color, warm Results & Data Vital Signs (Past 12 Hours) Vital Signs Temp Pulse Pulse Resp BP BP Pulse Ox 10/13/18 15:42 36.5 C 91 H 18 165/90 H 92 10/13/18 11:29 36.4 C L 94 H 18 152/78 H 92 10/13/18 08:17 111 H 10/13/18 06:33 36.7 C 111 H 22 165/92 H 92 Laboratory Results Short CBC 10/13/18 Range/Units 07:32 WBC 17.72 H (4.8-10.8) K/uL Hgb 11.9 L (12.0-16.0) g/dL Hct 37.2 (37-47) % Plt Count 173 (130-400) K/uL BMP 10/13/18 07:32 Creatinine 0.78 (1) Respiratory failure Chronicity: unspecified Respiratory failure complication: hypoxia Qualified Code(s): J96.91 - Respiratory failure, unspecified with hypoxia
--- NOTE | 2018-10-13 18:02 | Pulmonology Progress Note ---
Date of Service October 13, 2018 Assessment & Plan (1) Respiratory failure: 1. The patient currently remains on albuterol inhaler and also on Symbicort which will be continued. The patient was started on Spiriva which she is not able to take it so we are going to discontinue that. In fact patient requested us to discontinue the Spiriva. The patient also remains on methylprednisolone 40 mg IV every 12 hours which will be continued. She is on home prednisone regularly. 2. Currently she is also on oxygen which will be continued to maintain her saturation around 92 to 94%. She is on 4 and half liters of oxygen at home. 3. The patient was started on Zosyn for pulmonary infection which will be continued as prescribed. 4. The patient also remains on DVT prophylaxis heparin 5000 units subcutaneously every 8 hours. 5. The patient is also on Pepcid 40 mg daily which will be also continued. 6. Was strongly recommended to be out of bed to chair as much as possible. We are going to continue with all other management as prescribed. We also had a discussion with the patient as well as her primary care physician. I have spent greater than 35 minutes of clinical time. Chronicity: unspecified Respiratory failure complication: hypoxia Qualified Code(s): J96.91 - Respiratory failure, unspecified with hypoxia (2) Pneumonia: Laterality: unspecified laterality Lung location: unspecified part of lung Pneumonia type: due to unspecified organism Qualified Code(s): J18.9 - Pneumonia, unspecified organism (3) Hypoxia: (4) Pulmonary hypertension: (5) CKD (chronic kidney disease), stage III: (6) COPD exacerbation: Subjective From the review of previous notes I have revealed that the patient is 78-year-old female who has long-standing history of severe COPD and was admitted with exacerbation of chronic obstructive pulmonary disease. The patient also remains on home oxygen 4-1/2 L and she has also got kyphosis. The patient is most of the time bedridden she does some activities. She has been also on p.o. prednisone for the longest period of time. At home she has been on Ventolin inhaler as well as Symbicort. She was also diagnosed with pulmonary hyperte nsion and chronic respiratory failure. The patient was started on Spiriva but she did not tolerate that and would like to discontinue that. Currently she is on 4 L of oxygen and oxygenating around 92 to 94%. She has been short of breath with any kind of exertional activities. She denies having any chest pain or palpitations. She has minimal cough with some sputum but denies having any fever chills chest pain or hemoptysis. Review of Systems Review of Systems: Review of system is as mentioned above in the subjective. She has been short of breath which gets worse with any kind of exertion or act ivities. The patient denies having any headache dizziness or syncopal episode. She also denies having any chest pain or palpitations. She also denies having any abdominal pain nausea vomiting. The patient has swollen extremities but that has been chronically swollen. She also has ecchymotic changes all over she attributes that to chronic use of steroids. Denies having any blood in the stool or urine or painful micturition's. She is moving all extremities and denies having any weakness. She also denies any allergic reactions to any medications. Physical Exam Physical Exam: Elderly female morbidly obese lying in the bed not in any acute distress. HEENT: Head - normocephalic and atraumatic Pupils are equal, round, and reactive to light. Extraocular eye muscles are intact, and sclera are anicteric. Nose - moist nasal mucosa without discharge. Mouth - moist buccal mucosa. Oropharynx is nonerythematous and there is no tonsillar exudate or edema noted. Neck: Supple; no JVD, nuchal rigidity, cervical lymphadenopathy, or auscultated bruits. Heart: Regular rate and rhythm. There is a normal S1 and S2 with no murmurs, clicks, or gallops appreciated. Lungs: Bilaterally decreased breath sounds with scattered rhonchi and also has crackles at the bases posteriorly. Abdomen: Soft, obese abdomen, completely nontender, nondistended, with good bowel sounds. There are no palpable pulsatile masses or hepatosplenomegaly. There is no guarding, rigidity, or rebound noted. Extremities: Bilateral edema of the legs and also obese legs. Skin: Ecchymotic changes all over. Neurological: The patient has generalized weakness but she is moving all extremities. Results & Data Vital Signs (Past 12 Hours) Vital Signs Temp Pulse Pulse Resp BP BP Pulse Ox 10/13/18 15:42 36.5 C 91 H 18 165/90 H 92 10/13/18 11:29 36.4 C L 94 H 18 152/78 H 92 10/13/18 08:17 111 H 10/13/18 06:33 36.7 C 111 H 22 165/92 H 92 Laboratory Results 10/13/18 07:32 10/13/18 07:32 Laboratory Tests 10/09/18 17:53 VBG pH 7.32 L VBG pCO2 74 H VBG pO2 33 VBG HCO3 37 VBG O2 Saturation 60.8 VBG Base Excess 7.6 Barometric Pressure 729.4 Diagnostic Findings XR chest 1V portable CLINICAL HISTORY: Sepsis COMPARISON STUDY: 03-10 FINDINGS: The study is limited from technical standpoint. The heart is borderline enlarged. There is a left subclavian dual-chamber central venous pacemaker. There are chronic basilar opacities. There is no overt failure. There is no lobar consolidation.[ IMPRESSION: 1. Chronic interstitial basilar opacities 2. Borderline cardiomegaly 3. No evidence of failure Electronically signed by: Brayan Tse M.D. 10/09/2018 5:44 PM Dictated: 10/09/18 1743 Transcribed: 10/09/18 1743
[2018-10-13] MEDS: CITALOPRAM 20 MG TAB PO SCH (20:51)
[2018-10-14] MEDS ORDERED: GABAPENTIN 400 MG CAP PO SCH
[2018-10-14] MEDS: HEPARIN SOD 5,000 UNIT/0.5 ML VIAL SQ SCH ×3 (05:14→20:47)
[2018-10-14] MEDS: LORazepam 0.5 MG TAB PO PRN ×2 (06:10→22:25)
[2018-10-14] MEDS: GUAIFENESIN/CODEINE 100MG/10MG 5ML UDC PO PRN (06:11)
[2018-10-14 08:05] LABS: Creatinine Clr Calc Pharmacy 55.7 ml/min; Est GFR (African American) 88.3; Est GFR (Non-African American) 76.2
[2018-10-14] MEDS: CITALOPRAM 20 MG TAB PO SCH (09:14)
[2018-10-14] MEDS: dilTIAZem HCL 30 MG TAB PO SCH ×3 (09:14→20:42)
[2018-10-14] MEDS: FOLIC ACID 1 MG TAB PO SCH (09:15)
[2018-10-14] MEDS: FUROSEMIDE 20 MG TAB PO SCH (09:16)
[2018-10-14] MEDS: POTASSIUM CHLORIDE 10 MEQ TABCR PO SCH (09:16)
[2018-10-14] MEDS: NYSTATIN SUSP 500,000 U/5 ML UDC PO SCH ×5 (09:17→20:43)
[2018-10-14] MEDS: AMLODIPINE BESYLATE 5 MG TAB PO SCH (09:18)
[2018-10-14] MEDS: FAMOTIDINE 20 MG TAB PO SCH (09:21)
[2018-10-14] MEDS: methylPREDNISolone 40 MG in SYRINGE 0 ML IV SCH ×2 (09:22→20:44)
[2018-10-14] MEDS: THIAMINE HCL 100 MG TAB PO SCH (09:22)
[2018-10-14] MEDS: NYSTATIN OINT 15 GM TUBE EXT SCH ×3 (09:23→20:43)
[2018-10-14] MEDS: BUDESONIDE/FORMOTEROL FUMARATE 160/4.5 60 PUFFS/INHALER INH SCH ×2 (09:37→20:45)
--- NOTE | 2018-10-14 14:41 | Palliative Care Progress Note ---
Date of Service October 14, 2018 Assessment & Plan (1) Goals of care, counseling/discussion: -[facility] states patient is not currently appropriate for hospice care. Patient now wants to use [facility], with eventual transition to hospice. -[facility] will be notified upon discharge to do a safety check given patient's previously voiced concerns about her own safety at home with her son. -No new complaints for patient today. Palliative care will follow peripherally for now. (2) Respiratory failure: (3) Pneumonia: (4) Obesity: Subjective Patient feels the same today. No new complaints. Review of Systems Review of Systems: + weakness + worsening vision + loose teeth + cough, + dyspnea, + dyspnea on exertion no chest pain no abdominal pain and no nausea + urinary incontinence no confusion + anxiety Physical Exam Constitutional: + ill appearing (chronically) and + obese; no acute distress ENMT: Mouth: + poor dentition Respiratory: + labored breathing (mildly at rest) Auscultation: + diminished lung sounds Cardiovascular: Rate/Rhythm: regular rate and regular rhythm Extremities: no edema Gastrointestinal (Abdomen): Inspection/Auscultation: abdomen normal to inspection and normal bowel sounds Percussion/Palpation: abdomen soft; abdomen nontender Neurologic: moves all extremities and awake; not confused Psychiatric: Orientation: alert and oriented x 3 Results & Data Vital Signs (Past 12 Hours) Vital Signs Temp Pulse Pulse Resp BP BP Pulse Ox 10/14/18 14:29 98 H 182/92 H 10/14/18 11:30 36.7 C 86 16 158/78 H 95 10/14/18 09:10 59 L 10/14/18 06:48 36.4 C L 98 H 21 157/84 H 93 10/14/18 03:15 36.4 C L 99 H 19 172/92 H 95 PG Care Time/CCT Total # of Minutes Spent Total Time Spent with Patient: Total time spent is greater than 50% in coordination of care (as documented) at patient's floor/unit and/or counseling patient: Time Spent Midlevel 25 minutes with >50% of the time spent at bedside with patient discussing [cond ition and GOC]. (1) Respiratory failure Chronicity: unspecified Respiratory failure complication: hypoxia Qualified Code(s): J96.91 - Respiratory failure, unspecified with hypoxia (2) Pneumonia Laterality: unspecified laterality Lung location: unspecified part of lung Pneumonia type: due to unspecified organism Qualified Code(s): J18.9 - Pneumonia, unspecified organism
[2018-10-14] MEDS: ALBUTEROL HFA 8 GM INHALER INH PRN (14:49)
--- NOTE | 2018-10-14 17:44 | Hospitalist Progress Note ---
Date of Service October 14, 2018 Assessment & Plan (1) Respiratory failure: Acute on chronic respiratory failure with Hypoxia/Hypercapnia Acute on Chronic COPD Exacerbation Chronic Oxygen dependency: 4.5L at baseline H/O advanced COPD, previously on hospice services CXR: Chronic interstitial basilar opacities. Borderline cardiomegaly. No evidence of failure Received IV Zosyn Day #5/5 Continue Oxygen support, Glucocorticoids Refuses nebulizers, prefers to use inhalers Taper down steroid as able Blood cultures: No growth to date Aspiration precautions Appreciate pulmonology input Palliative care consulted to address goals of care Ipratropium discontinued as per patient's preference (Also couldn't afford it ) Continue current medications (2) CKD (chronic kidney disease), stage III: Creatinine at baseline Avoid nephrotoxic agents as able Alcohol Use Disorder Drinks Wine on daily basis as per Patient's Son Continue Thiamine, Folic Acid Completed Gabapentin Protocol Monitor for Withdrawal (3) Pulmonary hypertension: (4) 2Nd degree AV block: R/O UTI: Ruled out Urine Culture: No growth DVT Px: Heparin SQ Code Status: DNI/DNR Disposition: He does not currently meet criteria for hospice services. Prefers to be discharged home with Home Health as able Needs home safety check prior to discharge Case management following Subjective Patient is seen and examined at bedside Less Cough Subjective feels shortness of breath continues to be worse No new complaints No other complaints Denies any chest pain, nausea, abdominal pain Review of Systems Review of Systems: All systems reviewed & are unremarkable except as noted in HPI & below Physical Exam Physical Exam: Physical Exam: Vitals signs as noted above General Appearance:Chronic ill appearing, no apparent distress Head: normocephalic, Atraumatic Eyes: normal inspection, EOMI Neck: supple, Trachea midline Respiratory/Chest: Decreased breath sounds, CTA Cardiovascular: S1, S2, No murmur Abdomen/GI:Soft, Non tender, Bowel sounds present Extremities/Musculoskelatal:normal inspection, no edema Neurologic/Psych:AAOX3, grossly no focal neurological deficits Skin: normal color, warm Results & Data Vital Signs (Past 12 Hours) Vital Signs Temp Pulse Pulse Resp BP BP Pulse Ox 10/14/18 14:29 98 H 182/92 H 10/14/18 11:30 36.7 C 86 16 158/78 H 95 10/14/18 09:10 59 L 10/14/18 06:48 36.4 C L 98 H 21 157/84 H 93 Laboratory Results [facility] 10/14/18 07:25 Creatinine 0.76 (1) Respiratory failure Chronicity: unspecified Respiratory failure complication: hypoxia Qualified Code(s): J96.91 - Respiratory failure, unspecified with hypoxia
[2018-10-15] MEDS: HEPARIN SOD 5,000 UNIT/0.5 ML VIAL SQ SCH ×2 (05:13→12:52)
[2018-10-15] MEDS: BUDESONIDE/FORMOTEROL FUMARATE 160/4.5 60 PUFFS/INHALER INH SCH (07:12)
[2018-10-15 08:13] LABS: Hematocrit (blood only) 40.9 % (37-47); Hemoglobin 12.7 g/dL (12.0-16.0); Mean Corpuscular Hemoglobin 30.8 pg (25-34); Mean Corpuscular Hgb Conc 31.1 g/dL (32-36); Platelet Count 176 K/uL (130-400); RDW Coefficient of Variation 13.2 % (11.5-14.5); RDW Standard Deviation 47.9 fL (36.4-46.3); Red Blood Count 4.13 M/uL (4.2-5.4); White Blood Count 16.12 K/uL (4.8-10.8)
[2018-10-15 08:46] LABS: BUN Creatinine Ratio 31.3 (10-20); Calcium 9.5 mg/dl (8.5-10.1); Creatinine Clr Calc Pharmacy 58.3 ml/min; Est GFR (African American) 92.7; Potassium 4.7 mmol/L (3.5-5.1)
[2018-10-15] MEDS: NYSTATIN SUSP 500,000 U/5 ML UDC PO SCH ×3 (08:51→15:59)
[2018-10-15] MEDS: AMLODIPINE BESYLATE 5 MG TAB PO SCH (08:51)
[2018-10-15] MEDS: THIAMINE HCL 100 MG TAB PO SCH (08:51)
[2018-10-15] MEDS: CITALOPRAM 20 MG TAB PO SCH (08:51)
[2018-10-15] MEDS: FUROSEMIDE 20 MG TAB PO SCH (08:52)
[2018-10-15] MEDS: FOLIC ACID 1 MG TAB PO SCH (08:52)
[2018-10-15] MEDS: dilTIAZem HCL 30 MG TAB PO SCH ×2 (08:52→13:39)
[2018-10-15] MEDS: POTASSIUM CHLORIDE 10 MEQ TABCR PO SCH (08:52)
[2018-10-15] MEDS: FAMOTIDINE 20 MG TAB PO SCH (08:53)
[2018-10-15] MEDS: NYSTATIN OINT 15 GM TUBE EXT SCH (08:53)
[2018-10-15] MEDS: methylPREDNISolone 40 MG in SYRINGE 0 ML IV SCH (10:20)
[2018-10-15] MEDS: GUAIFENESIN/CODEINE 100MG/10MG 5ML UDC PO PRN (11:57)
[2018-10-15] MEDS: LORazepam 0.5 MG TAB PO PRN (11:57)
[2018-10-15] MEDS ORDERED: AMLODIPINE BESYLATE 5 MG TAB PO ONE (12:47)
[2018-10-15] MEDS ORDERED: CARVEDILOL 3.125 MG TAB PO ONE (13:33)
--- NOTE | 2018-10-15 14:05 | Hospitalist Progress Note ---
Date of Service October 15, 2018 Assessment & Plan (1) Respiratory failure: Acute on chronic respiratory failure with Hypoxia/Hypercapnia Acute on Chronic COPD Exacerbation Chronic Oxygen dependency: 4.5L at baseline H/O advanced COPD, previously on hospice services -CXR: Chronic interstitial basilar opacities. Borderline cardiomegaly. No evidence of failure -completed 5 days of Zosyn; Blood cultures: No growth to date -as of 10/15/18, patient on baseline oxygen supplementation -patient clinically improved on solumedrol and to be transitioned to prednisone -Patient to be discharged on prednisone taper 40 mg daily for 3 days then 20 mg daily for 3 days then stop; patient should continue inhalers and nebulizers at home as needed. 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 Prescription sent to [facility] on [address] [place] [address] Alcohol Use -Drinks Wine on daily basis as per Patient's Son -was given Thiamine, Folic Acid and completed Gabapentin Protocol but no evidence of alcohol withdrawal -patient's son has been concerned about episodes of delirium or auditory or visual hallucinations by patient at home in the past however patient has not documented to have episodes of delirium or hallucinations in the hospital stay (3) Pulmonary hypertension: -likely from COPD (4) 2Nd degree AV block: -is sinus on cardiac telemetry monitoring -patient has pacemaker device DVT Px: Heparin SQ while in the hospital Code Status: DNI/DNR Discharge plans discussed with patient and patient's son Moncho ([phone]) and questions answered Patient should follow up with [facility] care follow up blood pressure check and medication adjustments as needed Discharge Diagnosis Acute on chronic respiratory failure with Hypoxia/Hypercapnia; Acute on Chronic COPD Exacerbation; CKD (chronic kidney disease), stage III and Hypertension due to chronic kidney disease Subjective Discussed with patient about her breathing and she feels that her breathing is baseline. Patient chronically on at least 4.5 liters of oxygen at baseline and currently as baseline. Patient having less cough. She declines chest X ray. Patient would like to be discharged. Patient denies chest pain. no abdomen pain. no dizziness or lightheadedness. Patient acted appropriately. No hallucinations Discharge plans discussed with patient and patient's son Moncho ([phone]) and questions answered. Physical Exam Constitutional: comfortable Eyes: PERRL, conjunctivae normal, anicteric sclerae EOM intact bilaterally ENMT: external ear and nose normal, oropharynx normal Respiratory: normal respiratory effort, lungs clear to auscultation Cardiovascular: Rate/Rhythm: regular rate and regular rhythm Gastrointestinal (Abdomen): normal bowel sounds, soft, nontender, no hepatosplenomegaly Musculoskeletal: Head/Neck/Chest: normocephalic and head atraumatic Neurologic: PERRL, EOMI, accommodation nl, no face palsy, no dysarthria CN's II-XI intact bilaterally Psychiatric: A+Ox3, euthymic affect Results & Data Vital Signs (Past 12 Hours) Vital Signs Temp Pulse Pulse Resp BP BP BP 10/15/18 12:31 36.9 C 91 H 20 171/91 H 10/15/18 07:43 36.7 C 100 H 18 168/91 H 10/15/18 07:19 86 10/15/18 05:23 36.5 C 108 H 20 170/100 H Pulse Ox 10/15/18 12:31 93 10/15/18 07:43 93 10/15/18 07:19 10/15/18 05:23 96 (1) Respiratory failure Chronicity: unspecified Respiratory failure complication: hypoxia Qualified Code(s): J96.91 - Respiratory failure, unspecified with hypoxia
[2018-10-15] MEDS ORDERED: predniSONE 20 MG TAB PO STA (14:25)
--- NOTE | 2018-10-15 14:46 | Discharge Summary ---
Date of Service October 15, 2018 Admission HPI Per Admitting Provider 78 year-old female with a past medical history of chronic kidney disease stage IV, pulmonary hypertension, second-degree AV block, obesity, chronic respiratory failure, COPD, and pneumonia presents with several days of shortness of breath. She was under hospice but that is what was reversed she comes into the ER complaining of worsening shortness of breath and thick sputum, she denies fever chills nausea or vomiting. In the emergency room she was found to have an elevated white blood cell count and bibasilar interstitial opacities consistent with pneumonia. She is a DNR, DNI and she will be placed in inpatient status likely to be here more than 2 midnights. Past medical historychronic kidney disease, pulmonary hypertension, secondary AV block, obesity, chronic respiratory failure, COPD, pneumonia Past surgical history-appendectomy, tubal ligation, pacemaker placement Family historynoncontributory Social historyshe was a smoker denies alcohol or drugs. October 09, 2018 Assessment & Plan (1) Respiratory failure: (2) Pneumonia: (3) Hypoxia: (4) CKD (chronic kidney disease), stage III: (5) Pulmonary hypertension: (6) 2Nd degree AV block: (7) COPD exacerbation: (8) Obesity: Patient is a DNR, DNI. We will place her on Zosyn and Solu-Medrol, DuoNeb, high flow oxygen, palliative care consult in the morning, she was on hospice. ROS-No Headache, No Visual Changes, No Nausea, No Vomiting, No Fever, No Chills, No Neck Pain or Stiffness, No Chest Pain, No Palpitations, positive SOB, positive LEE, positive cough, positive thick white sputum, positive wheezing, No Abdominal Pain, No Diarrhea, No Hematemesis, No Hemoptysis, No Unexpected Weight Loss, No Flank pain, No Melena, No Hematochezia, No Frequency, No Urgency, No Burning, No Hematuria, No Rashes, No Diaphoresis. Appetite is Normal Admission Exam Per Admitting Provider Physical Exam Gen-AAO x 3, mild respiratory distress, Afebrile, pleasant, obese, cooperative Head-NCAT, EOMI, PERRLA, Anicteric Sclera, No Posterior Pharyngeal Erythema Neck-Supple, No JVD, No Thyromegaly, No Masses, No LAD, No Bruits Lungs-scattered wheezing and rhonchi bilaterally mostly in the bases Chest-No S4, +S1, +S2, No S3, No Murmurs, No Rubs, No Gallops, No Ectopy Abdomen-Soft, Bowel Sounds Present, Non Tender, Non Distended, No Hepatomegaly, No Splenomegaly, No Palpable Masses, No Rebound, No Rigidity, No Guarding Musculoskeletal-Full Range of Motion Bilaterally, No CVAT Extremities-No Cyanosis, No Clubbing, No Edema, positive sores on the lower extremities Nuero-Cranial Nerves II-XII grossly intact, Motor WNL, DTRs WNL, Strength WNL, Non Focal Psych-Normal Mood Principal Diagnosis Acute on chronic respiratory failure with Hypoxia/Hypercapnia; Acute on Chronic COPD Exacerbation; CKD (chronic kidney disease), stage III and Hypertension due to chronic kidney disease Discharge Exam Constitutional comfortable Eyes PERRL, conjunctivae normal, anicteric sclerae EOM intact bilaterally ENMT external ear and nose normal, oropharynx normal Respiratory normal respiratory effort, lungs clear to auscultation Cardiovascular Rate/Rhythm: regular rate and regular rhythm Gastrointestinal (Abdomen) normal bowel sounds, soft, nontender, no hepatosplenomegaly Musculoskeletal Head/Neck/Chest: normocephalic and head atraumatic Neurologic PERRL, EOMI, accommodation nl, no face palsy, no dysarthria CN's II-XI intact bilaterally Psychiatric A+Ox3, euthymic affect Discharge Data Allergies Allergy/AdvReac Type Severity Reaction Status Date / Time budesonide Allergy Severe TOLERATES Verified 10/09/18 17:51 PULMICORT.Swelling of neck, face, all extremities. tetanus toxoid, adsorbed Allergy Severe SWELLING Verified 10/09/18 17:51 strawberry Allergy Mild hives Verified 10/09/18 17:51 albuterol Allergy Unknown swelling Verified 10/09/18 17:51 of face and neck Cipro Allergy Unknown UNKOWN Verified 02/20/17 09:05 ciprofloxacin Allergy Unknown UNKOWN Verified 10/09/18 17:51 doxycycline Allergy Unknown unkn Verified 10/09/18 17:51 formoterol Allergy Unknown Swelling Verified 10/09/18 17:51 of face and throat. ipratropium Allergy Unknown swelling Verified 10/09/18 17:51 of face and neck levofloxacin Allergy Unknown Flushing. Verified 10/09/18 17:51 mivacurium Allergy Unknown UNKNOWN Verified 07/18/19 17:51 mometasone furoate Allergy Unknown Swelling Verified 10/09/18 17:51 of face and throat. morphine AdvReac Unknown nausea Verified 10/09/18 17:51 Consultations 10/09/18 19:17 ED Decision to Admit Stat 10/09/18 20:08 Consult Palliative Care Routine 10/09/18 21:41 Consult Case Management - Discharge Planning Routine 10/12/18 10:10 Consult Pulmonology Routine Ordered Studies 10/12/18 12:17 US venous doppler LE BI Routine Hospital Course (1) Respiratory failure: Acute on chronic respiratory failure with Hypoxia/Hypercapnia Acute on Chronic COPD Exacerbation Chronic Oxygen dependency: 4.5L at baseline H/O advanced COPD, previously on hospice services -CXR: Chronic interstitial basilar opacities. Borderline cardiomegaly. No evidence of failure -completed 5 days of Zosyn; Blood cultures: No growth to date -as of 10/15/18, patient on baseline oxygen supplementation -patient clinically improved on solumedrol and to be transitioned to prednisone -Patient to be discharged on prednisone taper 40 mg daily for 3 days then 20 mg daily for 3 days then stop; patient should continue inhalers and nebulizers at h ome as needed. 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 Prescription sent to [facility] on [address] [place] [address] Alcohol Use -Drinks Wine on daily basis as per Patient's Son -was given Thiamine, Folic Acid and completed Gabapentin Protocol but no evidence of alcohol withdrawal -patient's son has been concerned about episodes of delirium or auditory or visual hallucinations by patient at home in the past however patient has not documented to have episodes of delirium or hallucinations in the hospital stay (3) Pulmonary hypertension: -likely from COPD (4) 2Nd degree AV block: -is sinus on cardiac telemetry monitoring -patient has pacemaker device DVT Px: Heparin SQ while in the hospital Code Status: DNI/DNR Discharge plans discussed with patient and patient's son Moncho ([phone]) and questions answered Patient should follow up with [facility] primary care follow up blood pressure check and medication adjustments as needed Discharge Diagnosis Acute on chronic respiratory failure with Hypoxia/Hypercapnia; Acute on Chronic COPD Exacerbation; CKD (chronic kidney disease), stage III and Hypertension due to chronic kidney disease Total Time Total Time Spent Total Time Spent (In Minutes): 40 minutes Total Time Includes: Examination of the Patient, Discharge Planning, Medication Reconciliation and Communication With Other Providers Discharge Plan Discharge Items Patient Disposition: Home - Home Health Services Reason For Visit: FOR A FAILURE AND PNEUMONIA Discharge Diagnosis: Acute on chronic respiratory failure with Hypoxia/Hypercapnia; Acute on Chronic COPD Exacerbation; CKD (chronic kidney disease), stage III and Hypertension due to chronic kidney disease Condition: Fair Discharge Goals: Improve disease control Activity: Per 'Additional Instructions' section Non-emergency contact: Primary Care Provider Call non-emergency contact if: you have any medication questions Follow-up/Referrals: Zara Corona MD [Primary Care Provider] - Diet: Regular Addtl Provider Instructions: Patient to be discharged on prednisone taper 40 mg daily for 3 days then 20 mg daily for 3 days then stop; patient should continue inhalers and nebulizers at home as needed. Prescription sent to [facility] on [address] [place] [address] -amlodipine stopped from home medication list to avoid having 2 calcium channel jose angel medications because patient also takes diltiazem -patient may continue diltiazem -started on carvedilol 3.215 mg BID (twice a day) and to be discharged on this new blood pressure medication. Prescription sent to [facility] on [address] [place] [address] Patient should follow up with [facility] primary care follow up blood pressure check and medication adjustments as needed Prescriptions: New carvedilol 3.125 mg Tablet 3.125 mg PO BID 30 Days Qty: 60 RF: 0 prednisone 20 mg Tablet 40 mg PO DAILY 6 Days Qty: 12 RF: 0 Continued famotidine 40 mg Tablet 40 mg PO DAILY RF: 0 lorazepam 0.5 mg Tablet 0.5 mg PO BID PRN (Reason: Anxiety) RF: 0 hydrocodone-chlorpheniramine 10-8 mg/5 mL suspension,extended rel 12 hr 5 ml PO BID RF: 0 albuterol sulfate 90 mcg/actuation HFA aerosol inhaler 2 puff inhalation QID RF: 0 diltiazem HCl 30 mg tablet 30 mg PO UD RF: 0 diltiazem HCl 30 mg tablet 60 mg PO QAM RF: 0 Symbicort 160-4.5 mcg/actuation Hfa Aerosol Inhaler 2 puff INHALATION BID RF: 0 prednisone 10 mg Tablet 10 mg PO UD RF: 0 ranitidine HCl 300 mg Tablet 300 mg PO HS RF: 0 potassium chloride 10 mEq Tablet Extended Release 10 meq PO DAILY RF: 0 citalopram [Celexa] 20 mg Tablet 20 mg PO DAILY RF: 0 furosemide [Lasix] 20 mg Tablet 20 mg PO DAILY RF: 0 melatonin 5 mg Tablet 5 mg PO HS PRN (Reason: Insomnia) RF: 0 ipratropium-albuterol 0.5 mg-3 mg(2.5 mg base)/3 mL Solution For Nebulization 3 ml INHALATION BID RF: 0 Discontinued amlodipine 2.5 mg tablet 2.5 mg PO DAILY RF: 0 Stand-Alone Forms: [facility] Discharge Orders: Discharge Order (Routine); Ordered 10/15/18 Ordered By: Fede Robles Admission Data Admit Date/Time: 10/09/18 19:52 Attending Provider: Fede Robles Admit Provider: Fede Verde Primary Care Provider: Zara Corona Other Providers: Sascha Wesley ; Mariel Puente ; Abdullahi Melendez Service: Telemetry Medical
[2018-10-15] MEDS ORDERED: CARVEDILOL 3.125 MG TAB PO SCH (21:00)
[2018-10-16] MEDS ORDERED: AMLODIPINE BESYLATE 5 MG TAB PO SCH (09:00)
[2018-10-16] MEDS ORDERED: predniSONE 20 MG TAB PO SCH (09:00)
== END 2018-10-15 16:54 | disposition home health service (06) | DRG 189 ==
LOC: ED 16:46 → SUATTDRO 19:52 → 2S 19:52 → 2N 10-15 01:01

== ENCOUNTER 2018-10-22 16:50 | Inpatient (IN) ==
[2018-10-22] MEDS ORDERED: ACETAMINOPHEN 65 ML IV ONE (17:05)
--- NOTE | 2018-10-22 17:39 | XRay Report ---
SINGLE VIEW CHEST CLINICAL HISTORY: Dyspnea. FINDINGS: An AP, portable, upright chest radiograph is compared to study dated 10/09/2018 and correlat ed with chest CT dated 05/31/2015. The examination is degraded by portable technique and apical lordoti c positioning. A 2-lead cardiac pacemaker is unchanged in position and partially obscures the left up per chest. The heart is enlarged and there is atherosclerotic calcification of the thoracic aorta. Th e pulmonary vasculature is noncongested. Emphysema and chronic interstitial thickening are similar to previous. There is left basilar consolidation and a small left pleural effusion. Scarring/atelectasi s is noted at the right lung base. No pneumothorax is seen. The skeletal structures are osteopenic. T he bony thorax is grossly intact. IMPRESSION: 1. Cardiomegaly and cardiac pacemaker. There is no radiographic evidence of congestive failure. 2. Emphysema. 3. Airspace consolidation is noted at the left lung base with a small left pleural effusion. This is typical in appearance for pneumonia/aspiration pneumonitis. Clinical correlation will be required and radiographic follow-up to resolution is recommended. Electronically signed by: Contreras Thomas M.D. 10/22/2018 5:38 PM
[2018-10-22 18:15] LABS: Eosinophils # (auto) 0.41 K/uL (0-0.5); Eosinophils % (auto) 2.7 %; Hematocrit (blood only) 41.2 % (37-47); Hemoglobin 12.6 g/dL (12.0-16.0); Immature Granulocytes # (auto) 0.05 K/uL (0.00-0.02); Immature Granulocytes % (auto) 0.3 %; Lymphocytes # (auto) 1.86 K/uL (1.2-3.4); Lymphocytes % (auto) 12.4 %; Mean Corpuscular Hgb Conc 30.6 g/dL (32-36); Mean Platelet Volume 11.2 fL (7.4-10.4); Monocytes % (auto) 7.3 %; Neutrophils % (auto) 77.3 %; Platelet Count 124 K/uL (130-400); RDW Coefficient of Variation 12.8 % (11.5-14.5); RDW Standard Deviation 48.1 fL (36.4-46.3); Red Blood Count 4.04 M/uL (4.2-5.4); White Blood Count 15.02 K/uL (4.8-10.8)
[2018-10-22] MEDS ORDERED: SODIUM CHLORIDE 0.9% 1000ML 500 ML IV ONE (18:18)
[2018-10-22 18:19] LABS: Base Excess VBG 17.3 mEq/L; Oxygen Saturation VBG 78.5 %; pH VBG 7.39 (7.36-7.41)
[2018-10-22 18:28] LABS: Partial Thromboplastin Ratio 0.8; Partial Thromboplastin Time 22.2 Seconds (21.0-31.0); Prothrombin Time 10.5 Seconds (9.0-12.0)
[2018-10-22 18:39] LABS: Alanine Aminotransferase 17 U/L (12-78); Albumin Globulin Ratio 0.9 (0.9-2); Albumin Level 2.9 gm/dl (3.4-5.0); Alkaline Phosphatase 71 U/L (45-117); Aspartate Aminotransferase 13 U/L (15-37); BUN Creatinine Ratio 24.8 (10-20); Bilirubin,Total 0.7 mg/dl (0.2-1); Blood Urea Nitrogen 15 mg/dl (7-18); Calcium 9.5 mg/dl (8.5-10.1); Carbon Dioxide 42 mmol/L (21-32); Chloride 93 mmol/L (98-107); Est GFR (African American) 102.1; Est GFR (Non-African American) 88.1; Globulin 3.2 gm/dl (2.5-4.0); Glucose 92 mg/dl (70-99); Magnesium 1.8 mg/dl (1.8-2.4); Potassium 3.9 mmol/L (3.5-5.1); Sodium 139 mmol/L (136-145); Total Protein 6.1 gm/dl (6.4-8.2); Troponin I < 0.015 ng/ml (0-0.045)
[2018-10-22 19:07] LABS: Appearance Urine Cloudy (Clear); Bacteria Urine Automated 4+ (Negative); Bilirubin Urine Negative (Negative); Blood Urine Negative (Negative); Color Urine Yellow; Epithelial Cell Urine Auto 0-5 /lpf (0-5); Glucose Urine UA Negative (Negative); Ketones Urine 1+ (Negative); Leukocyte Esterase Urine 2+ (Negative); Nitrite Urine Positive (Negative); Protein Urine Negative (Negative); RBC Urine Automated 0-4 /hpf (0-4); Specific Gravity Urine 1.017 (1.000-1.030); Urobilinogen Urine Positive (Negative); WBC Urine Automated >30 /hpf (0-5); pH Urine >= 9.0 (4.5-7.5)
[2018-10-22] MEDS ORDERED: cefTRIAXone SODIUM 1,000 MG/50 ML BAG IV STA (19:15)
[2018-10-22] MEDS ORDERED: PIPERACILL/TAZOBAC CONSULT ACTIVE PRN (19:53)
[2018-10-22] MEDS ORDERED: PIPERACILLIN/TAZOBACTAM 4.5 GM/120 ML BAG IV ONE (19:53)
[2018-10-22] MEDS ORDERED: CARVEDILOL 3.125 MG TAB PO ONE (19:54)
[2018-10-22] MEDS ORDERED: methylPREDNISolone 40 MG in SYRINGE 0 ML IV STA (19:59)
[2018-10-22] MEDS ORDERED: XOPENEX/ATROVENT 1.25mg/0.5MG NEB COMBO NEB STA (20:00)
--- NOTE | 2018-10-22 20:12 | Emergency Department Note ---
Entered by Linda Mcgrath acting as a scribe for Contreras Remy MD History of Present Illness General Chief complaint: Weakness Stated complaint: SOB, WEAKNESS Time Seen by Provider: 10/22/18 16:56 Source: patient History of Present Illness Provider complaint: weakness Onset (ago): week(s) 1 Location: left (body muscles ) and right Pain Consistency: + other (worsening ) Relieved By: + none Associated symptoms: + fever/chills, + headaches and + other (feeling of "food" caught in her throat ) The patient is a 78 year old female who presents to the ED with complaints of worsening weakness that began 1 weak ago. The patient states that she has also been experiencing a headache. The patient states that she has not been short of breathe but that she has COPD. The charge nurse reports that the patient wears 4 Liters of oxygen via nasal cannula at home. She reports that she has been having low grade fevers at home. The patient states that she recently had shoulder pain. The patient states that she has a new hernia. She states that she has been bed ridden for one month now. The patient states that her son lives with her. The patient denies being on a blood thinner. The patients chart reports that t he patient was discharged from the hospital 7 days ago for repository failure and hypoxia. Home Medications Home Medications Medication Instructions Recorded Confirmed Type Symbicort 2 puff INHALATION BID 10/09/18 10/22/18 History albuterol sulfate 2 puff INHALATION QID 10/09/18 10/22/18 History diltiazem HCl 30 mg PO DIRECTED 10/09/18 10/22/18 History diltiazem HCl 60 mg PO QAM 10/09/18 10/22/18 History famotidine 40 mg PO DAILY 10/09/18 10/22/18 History hydrocodone-chlorpheniramine 5 ml PO BID 10/09/18 10/22/18 History lorazepam 0.5 mg PO BID PRN 10/09/18 10/22/18 History citalopram [Celexa] 20 mg PO DAILY 10/13/18 10/22/18 History furosemide [Lasix] 20 mg PO DAILY 10/13/18 10/22/18 History ipratropium-albuterol 3 ml INHALATION BID 10/13/18 10/22/18 History melatonin 5 mg PO HS PRN 10/13/18 10/22/18 History potassium chloride 10 meq PO DAILY 10/13/18 10/22/18 History prednisone 10 mg PO DAILY 10/13/18 10/22/18 History ranitidine HCl 300 mg PO HS 10/13/18 10/22/18 History carvedilol 3.125 mg PO BID 30 Days #60 tab 10/15/18 10/22/18 Rx escitalopram oxalate [Lexapro] 5 mg PO DAILY 10/22/18 10/22/18 History nystatin 1 applic TOPICAL BID 10/22/18 10/22/18 History prednisone 20 mg PO DAILY 10/22/18 10/22/18 History Allergies Allergy/AdvReac Type Severity Reaction Status Date / Time budesonide Allergy Severe TOLERATES Verified 10/22/18 17:42 PULMICORT.Swelling of neck, face, all extremities. formoterol Allergy Severe Swelling Verified 10/22/18 17:42 of face and throat. ipratropium Allergy Severe swelling Verified 10/22/18 17:42 of face and neck mometasone furoate Allergy Severe Swelling Verified 10/22/18 17:42 of face and throat. tetanus toxoid, adsorbed Allergy Severe SWELLING Verified 10/22/18 17:42 levofloxacin Allergy Intermediate Flushing. 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) "s/p pacemaker placement" Chronic respiratory failure (Chronic) COPD exacerbation Pneumonia Respiratory distress (Acute) Surgical History S/P appendectomy (Chronic) S/P tubal ligation (Chronic) S/P placement of cardiac pacemaker (Chronic) Family History Other Family history non-contributory Social History Preferred Language: Scottish Communication Ability: Effective Beliefs That Will Affect Care: None marital status: Single Current Living Situation: Family Feels Safe at Home: No Is there a partner from a previous relationship who is making you feel unsafe now?: No Smoking Status: Former smoker Tobacco Type: cigarettes Second Hand Exposure: No Hx Alcohol Use: No Hx Substance Use: No Review of Systems See HPI for pertinent positives & negatives. and A total of 10 systems reviewed and were otherwise negative Physical Exam Vital Signs Vital Signs - 24 hr 10/22/18 16:58 10/22/18 17:03 10/22/18 17:05 Temperature 36.8 C Temperature Source Oral Sepsis Recent Fever Within 48 Hours No Sepsis New/Unexplained Change in Mental Status No Sepsis Action Taken by Nursing No Action Required Pulse Rate 106 H 108 H 110 H Pulse Rate from SpO2 Sensor 106 H 108 H Respiratory Rate 27 H 31 H 18 Respiratory Effort / Characteristics Non-Labored Spontaneous Respiratory Depth Normal Blood Pressure 150/120 H 150/100 H Blood Pressure Mean 130 116 Pulse Oximetry 94 94 92 Oxygen Delivery Method Nasal Cannula Oxygen Flow Rate 4.5 10/22/18 17:11 10/22/18 17:30 10/22/18 17:38 Temperature Temperature Source Sepsis Recent Fever Within 48 Hours Sepsis New/Unexplained Change in Mental Status Sepsis Action Taken by Nursing Pulse Rate 103 H 105 H Pulse Rate from SpO2 Sensor Respiratory Rate 28 H Respiratory Effort / Characteristics Respiratory Depth Blood Pressure Blood Pressure Mean Pulse Oximetry 93 94 Oxygen Delivery Method Nasal Cannula Nasal Cannula Oxygen Flow Rate 4.5 4.5 10/22/18 18:00 10/22/18 18:30 10/22/18 18:42 Temperature Temperature Source Sepsis Recent Fever Within 48 Hours Sepsis New/Unexplained Change in Mental Status Sepsis Action Taken by Nursing Pulse Rate 102 H 106 H 106 H Pulse Rate from SpO2 Sensor 105 H Respiratory Rate 30 H 31 H 37 H Respiratory Effort / Characteristics Respiratory Depth Blood Pressure 147/84 H Blood Pressure Mean 105 Pulse Oximetry 95 Oxygen Delivery Method Oxygen Flow Rate 10/22/18 19:00 10/22/18 19:30 10/22/18 20:00 Temperature Temperature Source Sepsis Recent Fever Within 48 Hours Sepsis New/Unexplained Change in Mental Status Sepsis Action Taken by Nursing Pulse Rate 103 H 103 H 102 H Pulse Rate from SpO2 Sensor 103 H Respiratory Rate 26 H 26 H 26 H Respiratory Effort / Characteristics Respiratory Depth Blood Pressure 152/101 H 163/109 H Blood Pressure Mean 118 127 Pulse Oximetry 96 Oxygen Delivery Method Oxygen Flow Rate 10/22/18 20:42 10/22/18 20:44 10/22/18 21:00 Temperature Temperature Source Sepsis Recent Fever Within 48 Hours Sepsis New/Unexplained Change in Mental Status Sepsis Action Taken by Nursing Pulse Rate Pulse Rate from SpO2 Sensor 101 H Respiratory Rate 14 21 28 H Respiratory Effort / Characteristics Respiratory Depth Blood Pressure Blood Pressure Mean 130 Pulse Oximetry 96 Oxygen Delivery Method Oxygen Flow Rate 10/22/18 21:30 10/22/18 22:00 10/22/18 22:01 Temperature Temperature Source Sepsis Recent Fever Within 48 Hours Sepsis New/Unexplained Change in Mental Status Sepsis Action Taken by Nursing Pulse Rate Pulse Rate from SpO2 Sensor 95 H Respiratory Rate 39 H 30 H 27 H Respiratory Effort / Characteristics Respiratory Depth Blood Pressure 124/72 Blood Pressure Mean 89 Pulse Oximetry Oxygen Delivery Method Oxygen Flow Rate GENERAL: Patient is in no acute distress, smells strongly of urine. HEENT: No acute trauma, normocephalic atraumatic, mucous membranes moist, no nasal congestion, no scleral icterus. NECK: No stridor, no adenopathy, no meningismus, trachea is midline. LUNGS: Crackles at both bases, diminished breath sounds, no respiratory distress, no wheezing. HEART: Mildly tachycardic, regular rhythm, 2/6 systolic murmur. ABDOMEN: Soft, nontender, bowel sounds positive, no hernias, no peritonitis. EXTREMITIES: No cyanosis, no edema or deformities, full range of motion of all the joints without pain or difficulty. Bruises of different ages to all four extremities. NEUROLOGIC: Oriented x 3, no acute motor or sensory deficits, no focal weakness. SKIN: No rash, no jaundice, no diaphoresis. Course 1709: Past medical records reviewed. The patient was evaluated in room C12. A complete history and physical exam was performed. 1919: I reevaluated the patient at this time and she is resting comfortably. I spoke to the patient's son who states that his mother has been hallucinating frequently at home. 1926: I discussed the patients case with Kori Prescott PA-C. She informed me that Néstor Villatoro, agreed to evaluate the patient for further management. Consultations Consultation #1: I discussed the patients case with Kori Prescott PA-C. She informed me that Néstor Villatoro, agreed to evaluate the patient for further management. Time: 19:27 Administered Medications Ioversol (Optiray 320 100ml) 93 ml IV ONCE PRN PRN Reason: Interaction Checking Stop: 10/26/18 20:35 Last Admin: 10/22/18 20:36 Dose: 93 ml Documented by: [id number] Discontinued Medications Carvedilol (Coreg) 3.125 mg PO NOW ONE Stop: 10/22/18 19:55 Last Admin: 10/22/18 21:10 Dose: 3.125 mg Documented by: [id number] Acetaminophen (Ofirmev) 65 mls @ 200 mls/hr IV NOW ONE Stop: 10/22/18 17:24 Last Infusion: 10/22/18 18:55 Dose: 0 mls/hr Documented by: [id number] Admin: 10/22/18 18:31 Dose: 200 mls/hr Documented by: [id number] Sodium Chloride (Nss 1000ml) 500 mls @ 999 mls/hr IV .Q31M ONE Stop: 10/22/18 18:48 Last Admin: 10/22/18 18:39 Dose: 999 mls/hr Documented by: [id number] Ceftriaxone Sodium (Rocephin) 1,000 mg in 50 mls @ 100 mls/hr IV NOW STA Stop: 10/22/18 19:44 Last Admin: 10/22/18 19:27 Dose: 100 mls/hr Documented by: [id number] Piperacillin Sod/Tazobactam Sod (Zosyn) 4.5 gm in 120 mls @ 240 mls/hr IV NOW ONE Stop: 10/22/18 20:22 Last Admin: 10/22/18 21:09 Dose: 240 mls/hr Documented by: [id number] Methylprednisolone (Solumedrol) 40 mg IV ONE STA Stop: 10/22/18 21:01 Last Admin: 10/22/18 21:10 Dose: 40 mg Documented by: [id number] Medical Decision Making Differential Diagnosis Differential diagnoses include UTI, CHF, pneumonia, bronchitis, dehydration, r enal or liver failure, CO2 retention, LA, debilitation. Medical Records Attestation: I reviewed the patient's medical records. Home Medications Current Medication List: was personally reviewed by me Laboratory Data Attestation: I reviewed the patient's lab results. Result diagrams: 10/22/18 17:59 10/22/18 17:59 Lab Results 10/22/18 10/22/18 10/22/18 Range/Units 17:59 17:59 17:59 WBC 15.02 H (4.8-10.8) K/uL RBC 4.04 L (4.2-5.4) M/uL Hgb 12.6 (12.0-16.0) g/dL Hct 41.2 (37-47) % MCV 102.0 H (80-100) fL MCH 31.2 (25-34) pg MCHC 30.6 L (32-36) g/dL RDW Std Deviation 48.1 H (36.4-46.3) fL RDW Coeff of Romana 12.8 (11.5-14.5) % Plt Count 124 L (130-400) K/uL MPV 11.2 H (7.4-10.4) fL Immature Gran % (Auto) 0.3 % Neut % (Auto) 77.3 % Lymph % (Auto) 12.4 % Bourbon % (Auto) 7.3 % Eos % (Auto) 2.7 % Baso % (Auto) 0.0 % Immature Gran # (Auto) 0.05 H (0.00-0.02) K/uL Neut # (Auto) 11.60 H (1.4-6.5) K/uL Lymph # (Auto) 1.86 (1.2-3.4) K/uL Bourbon # (Auto) 1.10 H (0.11-0.59) K/uL Eos # (Auto) 0.41 (0-0.5) K/uL Baso # (Auto) 0.00 (0-0.2) K/uL PT 10.5 (9.0-12.0) Seconds INR 1.0 (0.9-1.1) APTT 22.2 (21.0-31.0) Seconds PTT Ratio 0.8 VBG pH (7.36-7.41) VBG pCO2 (38-50) mmHg VBG pO2 mmHg VBG HCO3 mmol/L VBG O2 Saturation % VBG Base Excess mEq/L Barometric Pressure mm/Hg Sodium 139 (136-145) mmol/L Potassium 3.9 (3.5-5.1) mmol/L Chloride 93 L (98-107) mmol/L Carbon Dioxide 42 H* (21-32) mmol/L Anion Gap 5.0 (3-11) BUN 15 (7-18) mg/dl Creatinine 0.61 (0.6-1.2) mg/dl Est Cr Clr Drug Dosing 70.0 ml/min Est GFR ( Amer) 102.1 Est GFR (Non-Af Amer) 88.1 BUN/Creatinine Ratio 24.8 H (10-20) Glucose 92 (70-99) mg/dl Lactate (0.4-2.0) mmol/L Calcium 9.5 (8.5-10.1) mg/dl Magnesium 1.8 (1.8-2.4) mg/dl Total Bilirubin 0.7 (0.2-1) mg/dl AST 13 L (15-37) U/L ALT 17 (12-78) U/L Alkaline Phosphatase 71 (45-117) U/L Troponin I < 0.015 (0-0.045) ng/ml Total Protein 6.1 L (6.4-8.2) gm/dl Albumin 2.9 L (3.4-5.0) gm/dl Globulin 3.2 (2.5-4.0) gm/dl Albumin/Globulin Ratio 0.9 (0.9-2) Lipase 89 (73-393) U/L TSH 0.437 (0.300-4.500) uIu/ml Urine Color Urine Appearance (Clear) Urine pH (4.5-7.5) Ur Specific Queen (1.000-1.030) Urine Protein (Negative) Urine Glucose (UA) (Negative) Urine Ketones (Negative) Urine Blood (Negative) Urine Nitrite (Negative) Urine Bilirubin (Negative) Urine Urobilinogen (Negative) Ur Leukocyte Esterase (Negative) Urine WBC (Auto) (0-5) /hpf Urine RBC (Auto) (0-4) /hpf U Hyaline Cast (Auto) (0-5) /lpf U Epithel Cells (Auto) (0-5) /lpf Urine Bacteria (Auto) (Negative) 10/22/18 10/22/18 10/22/18 Range/Units 17:59 17:59 18:44 WBC (4.8-10.8) K/uL RBC (4.2-5.4) M/uL Hgb (12.0-16.0) g/dL Hct (37-47) % MCV (80-100) fL MCH (25-34) pg MCHC (32-36) g/dL RDW Std Deviation (36.4-46.3) fL RDW Coeff of Romana (11.5-14.5) % Plt Count (130-400) K/uL MPV (7.4-10.4) fL Immature Gran % (Auto) % Neut % (Auto) % Lymph % (Auto) % Bourbon % (Auto) % Eos % (Auto) % Baso % (Auto) % Immature Gran # (Auto) (0.00-0.02) K/uL Neut # (Auto) (1.4-6.5) K/uL Lymph # (Auto) (1.2-3.4) K/uL Bourbon # (Auto) (0.11-0.59) K/uL Eos # (Auto) (0-0.5) K/uL Baso # (Auto) (0-0.2) K/uL PT (9.0-12.0) Seconds INR (0.9-1.1) APTT (21.0-31.0) Seconds PTT Ratio VBG pH 7.39 (7.36-7.41) VBG pCO2 78 H (38-50) mmHg VBG pO2 43 mmHg VBG HCO3 46 mmol/L VBG O2 Saturation 78.5 % VBG Base Excess 17.3 mEq/L Barometric Pressure 732.4 mm/Hg Sodium (136-145) mmol/L Potassium (3.5-5.1) mmol/L Chloride (98-107) mmol/L Carbon Dioxide (21-32) mmol/L Anion Gap (3-11) BUN (7-18) mg/dl Creatinine (0.6-1.2) mg/dl Est Cr Clr Drug Dosing ml/min Est GFR ( Amer) Est GFR (Non-Af Amer) BUN/Creatinine Ratio (10-20) Glucose (70-99) mg/dl Lactate 1.1 (0.4-2.0) mmol/L Calcium (8.5-10.1) mg/dl Magnesium (1.8-2.4) mg/dl Total Bilirubin (0.2-1) mg/dl AST (15-37) U/L ALT (12-78) U/L Alkaline Phosphatase (45-117) U/L Troponin I (0-0.045) ng/ml Total Protein (6.4-8.2) gm/dl Albumin (3.4-5.0) gm/dl Globulin (2.5-4.0) gm/dl Albumin/Globulin Ratio (0.9-2) Lipase (73-393) U/L TSH (0.300-4.500) uIu/ml Urine Color Yellow Urine Appearance Cloudy A (Clear) Urine pH >= 9.0 H (4.5-7.5) Ur Specific Queen 1.017 (1.000-1.030) Urine Protein Negative (Negative) Urine Glucose (UA) Negative (Negative) Urine Ketones 1+ H (Negative) Urine Blood Negative (Negative) Urine Nitrite Positive A (Negative) Urine Bilirubin Negative (Negative) Urine Urobilinogen Positive H (Negative) Ur Leukocyte Esterase 2+ H (Negative) Urine WBC (Auto) >30 H (0-5) /hpf Urine RBC (Auto) 0-4 (0-4) /hpf U Hyaline Cast (Auto) 1-5 (0-5) /lpf U Epithel Cells (Auto) 0-5 (0-5) /lpf Urine Bacteria (Auto) 4+ H (Negative) Imaging Data Radiologist's Impression: Radiology results as stated below per my review and the radiologist's interpretation: SINGLE VIEW CHEST CLINICAL HISTORY: Dyspnea. FINDINGS: An AP, portable, upright chest radiograph is compared to study dated 10/09/2018 and correlated with chest CT dated 05/31/2015. The examination is degraded by portable technique and apical lordotic positioning. A 2-lead cardiac pacemaker is unchanged in position and partially obscures the left upper chest. The heart is enlarged and there is atherosclerotic calcification of the thoracic aorta. The pulmonary vasculature is noncongested. Emphysema and chronic interstitial thickening are similar to previous. There is left basilar consolidation and a small left pleural effusion. Scarring/atelectasis is noted at the right lung base. No pneumothorax is seen. The skeletal structures are osteopenic. The bony thorax is grossly intact. IMPRESSION: 1. Cardiomegaly and cardiac pacemaker. There is no radiographic evidence of congestive failure. 2. Emphysema. 3. Airspace consolidation is noted at the left lung base with a small left pleural effusion. This is typical in appearance for pneumonia/aspiration pneumonitis. Clinical correlation will be required and radiographic follow-up to resolution is recommended. Electronically signed by: Contreras Thomas M.D. 10/22/2018 5:38 PM ECG Data Attestation: I personally reviewed and interpreted this ECG as follows: Indication: weakness Rate (beats per minute): 103 Rhythm: sinus tachycardia Findings: no PVC and no ST elevation Blood Pressure Blood Pressure Findings: Elevated blood pressure Blood Pressure Disposition: further management by hospitalist [facility] Narrative There is a moderate leukocytosis, the patient has a history of an elevation to her white count. No concerning anemia. Platelet count slightly low but not near critical. There was no coagulopathy. VBG does show some CO2 retention with a value of 78, this is slightly higher than she has been in the past. There was no acidosis. Renal panel testing does show an elevation to the carbon dioxide at 42. This is consistent with some chronic CO2 retention. Lactic acid level was not elevated making severe sepsis less likely. There was no worrisome liver enzyme elevations. Urinalysis is consistent with infection, urine culture is pending. Chest film shows a potential infiltrate at the left base, this film though looks similar to previous films. There was no heart failure. The patient presents with increasing shortness of breath, weakness, and as per her son, some confusion and hallucinations. Work-up here does suggest a UTI. She may be retaining a slightly higher amount of CO2 than her baseline. Given her findings, given her presentation and given the change in mental status, I do think a hospital stay is warranted. I spoke to the patient and case management. The on-call hospitalist was consulted. Impression & Plan Confusion state, Weakness, SOB (shortness of breath), CO2 retention, UTI symptoms Discharge Plan Visit Data Chief Complaint: Weakness Stated Complaint: SOB, WEAKNESS ED Provider: Contreras Remy Discharge Problem: Confusion state, Weakness, SOB (shortness of breath), CO2 retention, UTI symptoms Patient Disposition: Being Evaluated by Hospitalist Forms Stand Alone Forms: My [facility] Prescriptions Prescriptions: No Action famotidine 40 mg Tablet 40 mg PO DAILY RF: 0 lorazepam 0.5 mg Tablet 0.5 mg PO BID PRN (Reason: Anxiety) RF: 0 hydrocodone-chlorpheniramine 10-8 mg/5 mL suspension,extended rel 12 hr 5 ml PO BID RF: 0 albuterol sulfate 90 mcg/actuation HFA aerosol inhaler 2 puff inhalation QID RF: 0 diltiazem HCl 30 mg tablet 30 mg PO DIRECTED RF: 0 diltiazem HCl 30 mg tablet 60 mg PO QAM RF: 0 Symbicort 160-4.5 mcg/actuation Hfa Aerosol Inhaler 2 puff INHALATION BID RF: 0 prednisone 10 mg Tablet 10 mg PO DAILY RF: 0 ranitidine HCl 300 mg Tablet 300 mg PO HS RF: 0 potassium chloride 10 mEq Tablet Extended Release 10 meq PO DAILY RF: 0 citalopram [Celexa] 20 mg Tablet 20 mg PO DAILY RF: 0 furosemide [Lasix] 20 mg Tablet 20 mg PO DAILY RF: 0 melatonin 5 mg Tablet 5 mg PO HS PRN (Reason: Insomnia) RF: 0 ipratropium-albuterol 0.5 mg-3 mg(2.5 mg base)/3 mL Solution For Nebulization 3 ml INHALATION BID RF: 0 carvedilol 3.125 mg Tablet 3.125 mg PO BID 30 Days Qty: 60 RF: 0 prednisone 20 mg Tablet 20 mg PO DAILY RF: 0 nystatin 100,000 unit/gram Cream 1 applic TOPICAL BID RF: 0 escitalopram oxalate [Lexapro] 5 mg Tablet 5 mg PO DAILY RF: 0 Referrals Referrals: Zara Corona MD [Primary Care Provider] - The scribe's documentation has been prepared under my direction and personally reviewed by me in its entirety. I confirm that the note above accurately ref lects all work, treatment, procedures, and medical decision making performed by me.
[2018-10-22] MEDS ORDERED: LEVALBUTEROL 1.25MG/0.5ML NEB NEB STA (20:17)
[2018-10-22] MEDS ORDERED: LEVALBUTEROL 1.25MG/0.5ML NEB ONE (20:31)
[2018-10-22] MEDS ORDERED: IPRATROPIUM BROMIDE NEB SOLN 0.02% 2.5 ML VIAL ONE (20:31)
[2018-10-22] MEDS ORDERED: IOVERSOL 100ml IV PRN (20:36)
--- NOTE | 2018-10-22 20:39 | CT Scan Report ---
CT SCAN OF THE BRAIN WITHOUT IV CONTRAST CLINICAL HISTORY: Headache. COMPARISON STUDY: CT of the brain dated 05/03/2015. TECHNIQUE: Unenhanced axial CT scan of the brain is performed from the vertex to the skull base. A do se lowering technique was utilized adhering to the principles of ALARA. CT DOSE: 537.48 mGy.cm FINDINGS: Brain parenchyma: There are age-related involutional changes noting mild subcortical and periventric ular microangiopathic change. There is no hemorrhage, mass effect, or evidence of acute territorial i schemia by CT criteria. Alcocer-white matter differentiation is preserved. No extra-axial fluid collecti on is seen. Ventricles, sulci, cisterns: Prominent secondary to involutional change. Intracranial vasculature: There is atherosclerotic calcification of the cavernous carotid arteries. Calvarium: Unremarkable. Sinuses and mastoids: The visualized paranasal sinuses are clear. The mastoid air cells are well pneu matized. Orbits: The bony orbits are grossly intact. IMPRESSION: There is no hemorrhage, mass effect, or evidence of acute territorial ischemia by CT alexandra appiah. Electronically signed by: Contreras Thomas M.D. 10/22/2018 8:38 PM
--- NOTE | 2018-10-22 20:48 | CT Scan Report ---
CT SCAN OF THE ABDOMEN AND PELVIS WITH IV CONTRAST CLINICAL HISTORY: Generalized abdominal pain. COMPARISON STUDY: Abdominal CT dated 06/04/2014. TECHNIQUE: Following the IV administration of 93 cc of Optiray 320, CT scan of the abdomen and pelvi s is performed from the lung bases to the proximal femora. Images are reviewed in the axial, sagittal , and coronal planes. IV contrast was administered without complication. A dose lowering technique wa s utilized adhering to the principles of ALARA. The examination is degraded by streak artifact from t he arms which could not be elevated above the abdomen. CT DOSE: 770.37 mGy.cm FINDINGS: Lung bases: The heart is normal in size and without pericardial effusion. Pacemaker leads are noted. Bronchiectasis is noted at both lung bases. There is bibasilar consolidation. Liver: The contrast-enhanced liver is normal in size, contour, and attenuation. There is no intrahepa tic biliary ductal dilatation. The hepatic veins and portal veins are patent. Gallbladder: The gallbladder is partially distended. There is mild wall thickening and hyperemia of t he gallbladder mucosa. Faint pericholecystic stranding is observed. Spleen: Normal in size and attenuation. Pancreas: Atrophic and grossly unremarkable. Adrenal glands: Unremarkable. Kidneys: The contrast enhanced kidneys demonstrate cortical atrophy and are without hydronephrosis. T he kidneys enhance symmetrically. Abdominal vasculature: The abdominal aorta is normal in course and caliber noting moderate atheroscle rotic calcification. Bowel: The small bowel and colon are normal in course and caliber. The appendix is not identified an d reported surgically absent. Peritoneum: There is no intraperitoneal free air or abdominal ascites. There is laxity of the ventral pelvic wall with diastases of the rectus musculature and protrusion of abdominal contents. Lymphadenopathy: None. Pelvic viscera: The bladder, uterus, and adnexa are normal as visualized. Findings suggest pelvic petey or prolapse. Skeletal structures: The skeletal structures are osteopenic. There is mild lumbosacral spondylosis. N o lytic or blastic lesions are seen. IMPRESSION: 1. There is bibasilar airspace consolidation. Correlate clinically for evidence of pneumonia/aspirati on pneumonitis. Radiographic follow-up to resolution is recommended. 2. The gallbladder is partially distended. The gallbladder wall appears mildly thickened and hyperemi c and there is pericystic inflammation. Correlate with clinical findings and laboratory studies for e vidence of acute cholecystitis. Consider right upper quadrant ultrasound or nuclear hepatobiliary sca n for further assessment. 3. Additional findings as above. Electronically signed by: Contreras Thomas M.D. 10/22/2018 8:46 PM
--- NOTE | 2018-10-22 21:45 | History & Physical Report ---
Date of Service October 22, 2018 Assessment & Plan (1) Weakness: Multifactorial : Sepsis (possible sources : Cholecystitis, HCAP) ? New Coreg Rx chronic respiratory failure secondary to steroid-dependent COPD past tobacco abuse Patient lung function seems to be at baseline. hypertension, elevated secondary discomfort history 2AV block as per records Thrombocytopenia secondary to sepsis rule out HIT Medical telemetry Cultures, IV Zosyn for now Surgery consult RE cholecystitis Hold Coreg, add to ADR list for now Initiate lisinopril in a.m. if BP still uncontrolled HIT screen DVT prophylaxis. SCDs RE thrombocytopenia DNR History of Present Illness Chief Complaint: Generalized weakness Primary Care Provider: Zara Corona MD History obtained from patient and records. Medical history significant for chronic respiratory failure secondary to steroid-dependent COPD, past tobacco abuse, hypertension, history 2AV block as per records. Recent confinement 2 weeks ago for respiratory failure secondary to COPD exacerbation. Patient's home Norvasc switched to Coreg to avoid concomitant intake with patient's home Cardizem Rx (another calcium channel jose angel) as per notes. At home, patient noted generalized weakness, feeling very tired. Patient wondering if new blood pressure medicine was causing symptoms. Same junky to dry cough symptoms worsened with intake of cold water. Shortness of breath a little worsening. No unusual chest pain, usual bilateral leg pain. Patient noted achy hypogastric discomfort. Achy left-sided headache symptoms. No emesis. Poor appetite. [facility] nurse wants to evaluate patient for hospice appropriateness as per records. Patient brought to the emergency room for increasing weakness. Received IV ceftriaxone for sepsis. Medical History as above Surgical History : Appendectomy, BTL Family History : Heart disease, diabetes, stroke Personal/Social history : Past tobacco abuse, daily alcohol intake (denies abuse), retired [employer] employee Allergies Allergy/AdvReac Type Severity Reaction Status Date / Time budesonide Allergy Severe TOLERATES Verified 10/22/18 17:42 PULMICORT.Swelling of neck, face, all extremities. formoterol Allergy Severe Swelling Verified 10/22/18 17:42 of face and throat. ipratropium Allergy Severe swelling Verified 10/22/18 17:42 of face and neck mometasone furoate Allergy Severe Swelling Verified 10/22/18 17:42 of face and throat. tetanus toxoid, adsorbed Allergy Severe SWELLING Verified 10/22/18 17:42 levofloxacin Allergy Intermediate Flushing. Verified 10/22/18 17:42 strawberry Allergy Mild hives Verified 10/22/18 17:42 Cipro Allergy Unknown UNKOWN Verified 02/20/17 09:05 ciprofloxacin Allergy Unknown UNKOWN Verified 10/22/18 17:42 doxycycline Allergy Unknown unkn Verified 10/22/18 17:42 mivacurium Allergy Unknown UNKNOWN Verified 10/22/18 17:42 carvedilol [From Coreg] AdvReac Intermediate weakness, Verified 10/22/18 21:54 dizziness morphine AdvReac Mild nausea Verified 10/22/18 17:42 Home Medications Home Medications Medication Instructions Recorded Confirmed Type Symbicort 2 puff INHALATION BID 10/09/18 10/22/18 History albuterol sulfate 2 puff INHALATION QID 10/09/18 10/22/18 History diltiazem HCl 30 mg PO DIRECTED 10/09/18 10/22/18 History diltiazem HCl 60 mg PO QAM 10/09/18 10/22/18 History famotidine 40 mg PO DAILY 10/09/18 10/22/18 History hydrocodone-chlorpheniramine 5 ml PO BID 10/09/18 10/22/18 History lorazepam 0.5 mg PO BID PRN 10/09/18 10/22/18 History citalopram [Celexa] 20 mg PO DAILY 10/13/18 10/22/18 History furosemide [Lasix] 20 mg PO DAILY 10/13/18 10/22/18 History ipratropium-albuterol 3 ml INHALATION BID 10/13/18 10/22/18 History melatonin 5 mg PO HS PRN 10/13/18 10/22/18 History potassium chloride 10 meq PO DAILY 10/13/18 10/22/18 History prednisone 10 mg PO DAILY 10/13/18 10/22/18 History ranitidine HCl 300 mg PO HS 10/13/18 10/22/18 History carvedilol 3.125 mg PO BID 30 Days #60 tab 10/15/18 10/22/18 Rx escitalopram oxalate [Lexapro] 5 mg PO DAILY 10/22/18 10/22/18 History nystatin 1 applic TOPICAL BID 10/22/18 10/22/18 History prednisone 20 mg PO DAILY 10/22/18 10/22/18 History Past Med/Surg History Medical History CKD (chronic kidney disease), stage III (Chronic) Pulmonary hypertension (Chronic) 2Nd degree AV block (Chronic) "s/p pacemaker placement" Chronic respiratory failure (Chronic) COPD exacerbation Pneumonia Respiratory distress (Acute) Surgical History S/P appendectomy (Chronic) S/P tubal ligation (Chronic) S/P placement of cardiac pacemaker (Chronic) Family History Other Family history non-contributory Social History Preferred Language: Estonian Communication Ability: Effective Home Office Representative Required: No Beliefs That Will Affect Care: None marital status: Single Current Living Situation: Family Current Living Situation Comment: with son, who is the caregiver Other Information That Helps Us Care for You: No Feels Safe at Home: No Is there a partner from a previous relationship who is making you feel unsafe now?: No Any Concerns about Your Family Situation: No Would You Like to Speak to Someone About Your Situation: No Safety Concerns: Feels Safe At This Time Smoking Status: Former smoker Tobacco Type: cigarettes Cigarettes Per Day: 3-4 packages a day Do You Dip or Chew Tobacco: No Smoking End Date: 10 years ago Second Hand Exposure: No Tobacco Cessation Education Requested by Patient: No Hx Alcohol Use: Yes Alcohol type: wine Hx Substance Use: No Review of Systems Review of Systems: As per HPI, all 10 systems reviewed, all other ROS negative Physical Exam Physical Exam: GENERAL: wane, no respiratory distress SKIN: Normal color, warm, ecchymoses over the extremities HEENT: [place] palpebral conjunctivae, no ptosis, dry buccal mucosa NECK : Supple, no tenderness CHEST : Decreased breath sounds , no tenderness HEART : Tachycardic , no obvious murmurs ABDOMEN: Some distention, right upper quadrant tenderness EXTREMITIES : Minimal LE swelling, no LE tenderness, no other conspicuous deformities noted except for ecchymosis NEUROLOGIC : Coherent, no facial asymmetry, slightly hard of hearing, gait and stance not assessed Results & Data Vital Signs (Past 12 Hours) Vital Signs Temp Pulse Resp BP Pulse Ox 10/22/18 19:30 103 H 26 H 163/109 H 10/22/18 19:00 103 H 26 H 152/101 H 96 10/22/18 18:42 106 H 37 H 147/84 H 95 10/22/18 18:30 106 H 31 H 10/22/18 18:00 102 H 30 H 10/22/18 17:38 94 10/22/18 17:30 105 H 28 H 10/22/18 17:11 103 H 93 10/22/18 17:05 36.8 C 110 H 18 150/100 H 92 10/22/18 17:03 108 H 31 H 94 10/22/18 16:58 106 H 27 H 150/120 H 94 Laboratory Results Laboratory Results WBC 15.02 K/uL (4.8-10.8) H 10/22/18 17:59 RBC 4.04 M/uL (4.2-5.4) L 10/22/18 17:59 Hgb 12.6 g/dL (12.0-16.0) 10/22/18 17:59 Hct 41.2 % (37-47) 10/22/18 17:59 MCV 102.0 fL (80-100) H 10/22/18 17:59 MCH 31.2 pg (25-34) 10/22/18 17:59 MCHC 30.6 g/dL (32-36) L 10/22/18 17:59 RDW Std Deviation 48.1 fL (36.4-46.3) H 10/22/18 17:59 RDW Coeff of Romana 12.8 % (11.5-14.5) 10/22/18 17:59 Plt Count 124 K/uL (130-400) L 10/22/18 17:59 MPV 11.2 fL (7.4-10.4) H 10/22/18 17:59 Immature Gran % (Auto) 0.3 % 10/22/18 17:59 Neut % (Auto) 77.3 % 10/22/18 17:59 Lymph % (Auto) 12.4 % 10/22/18 17:59 [place] % (Auto) 7.3 % 10/22/18 17:59 Eos % (Auto) 2.7 % 10/22/18 17:59 Baso % (Auto) 0.0 % 10/22/18 17:59 Immature Gran # (Auto) 0.05 K/uL (0.00-0.02) H 10/22/18 17:59 Neut # (Auto) 11.60 K/uL (1.4-6.5) H 10/22/18 17:59 Lymph # (Auto) 1.86 K/uL (1.2-3.4) 10/22/18 17:59 [place] # (Auto) 1.10 K/uL (0.11-0.59) H 10/22/18 17:59 Eos # (Auto) 0.41 K/uL (0-0.5) 10/22/18 17:59 Baso # (Auto) 0.00 K/uL (0-0.2) 10/22/18 17:59 PT 10.5 Seconds (9.0-12.0) 10/22/18 17:59 INR 1.0 (0.9-1.1) 10/22/18 17:59 APTT 22.2 Seconds (21.0-31.0) 10/22/18 17:59 PTT Ratio 0.8 10/22/18 17:59 VBG pH 7.39 (7.36-7.41) 10/22/18 17:59 VBG pCO2 78 mmHg (38-50) H 10/22/18 17:59 VBG pO2 43 mmHg 10/22/18 17:59 VBG HCO3 46 mmol/L 10/22/18 17:59 VBG O2 Saturation 78.5 % 10/22/18 17:59 VBG Base Excess 17.3 mEq/L 10/22/18 17:59 Barometric Pressure 732.4 mm/Hg 10/22/18 17:59 Sodium 139 mmol/L (136-145) 10/22/18 17:59 Potassium 3.9 mmol/L (3.5-5.1) 10/22/18 17:59 Chloride 93 mmol/L (98-107) L 10/22/18 17:59 Carbon Dioxide 42 mmol/L (21-32) H* 10/22/18 17:59 Anion Gap 5.0 (3-11) 10/22/18 17:59 BUN 15 mg/dl (7-18) 10/22/18 17:59 Creatinine 0.61 mg/dl (0.6-1.2) 10/22/18 17:59 Est Cr Clr Drug Dosing 70.0 ml/min 10/22/18 17:59 Est GFR ( Amer) 102.1 10/22/18 17:59 Est GFR (Non-Af Amer) 88.1 10/22/18 17:59 BUN/Creatinine Ratio 24.8 (10-20) H 10/22/18 17:59 Glucose 92 mg/dl (70-99) 10/22/18 17:59 Lactate 1.1 mmol/L (0.4-2.0) 10/22/18 17:59 Calcium 9.5 mg/dl (8.5-10.1) 10/22/18 17:59 Magnesium 1.8 mg/dl (1.8-2.4) 10/22/18 17:59 Total Bilirubin 0.7 mg/dl (0.2-1) 10/22/18 17:59 AST 13 U/L (15-37) L 10/22/18 17:59 ALT 17 U/L (12-78) 10/22/18 17:59 Alkaline Phosphatase 71 U/L (45-117) 10/22/18 17:59 Troponin I < 0.015 ng/ml (0-0.045) 10/22/18 17:59 Total Protein 6.1 gm/dl (6.4-8.2) L 10/22/18 17:59 Albumin 2.9 gm/dl (3.4-5.0) L 10/22/18 17:59 Globulin 3.2 gm/dl (2.5-4.0) 10/22/18 17:59 Albumin/Globulin Ratio 0.9 (0.9-2) 10/22/18 17:59 Lipase 89 U/L (73-393) 10/22/18 17:59 TSH 0.437 uIu/ml (0.300-4.500) 10/22/18 17:59 Urine Color Yellow 10/22/18 18:44 Urine Appearance Cloudy (Clear) A 10/22/18 18:44 Urine pH >= 9.0 (4.5-7.5) H 10/22/18 18:44 Ur Specific [place] 1.017 (1.000-1.030) 10/22/18 18:44 Urine Protein Negative (Negative) 10/22/18 18:44 Urine Glucose (UA) Negative (Negative) 10/22/18 18:44 Urine Ketones 1+ (Negative) H 10/22/18 18:44 Urine Blood Negative (Negative) 10/22/18 18:44 Urine Nitrite Positive (Negative) A 10/22/18 18:44 Urine Bilirubin Negative (Negative) 10/22/18 18:44 Urine Urobilinogen Positive (Negative) H 10/22/18 18:44 Ur Leukocyte Esterase 2+ (Negative) H 10/22/18 18:44 Urine WBC (Auto) >30 /hpf (0-5) H 10/22/18 18:44 Urine RBC (Auto) 0-4 /hpf (0-4) 10/22/18 18:44 U Hyaline Cast (Auto) 1-5 /lpf (0-5) 10/22/18 18:44 U Epithel Cells (Auto) 0-5 /lpf (0-5) 10/22/18 18:44 Urine Bacteria (Auto) 4+ (Negative) H 10/22/18 18:44 Diagnostic Findings Chest x-ray showed 1. Cardiomegaly and cardiac pacemaker. There is no radiographic evidence of congestive failure. 2. Emphysema. 3. Airspace consolidation is noted at the left lung base with a small left pleural effusion. This is typical in appearance for pneumonia/aspiration pneumonitis. Clinical correlation will be required and radiographic follow-up to resolution is recommended. EKG as per my interpretation : Rate 105, sinus tachycardia, right bundle branch block, T wave flattening inferior leads CT head: There is no hemorrhage, mass effect, or evidence of acute territorial ischemia by CT criteria. CT abdomen pelvis: 1. There is bibasilar airspace consolidation. Correlate clinically for evidence of pneumonia/aspiration pneumonitis. Radiographic follow-up to resolution is recommended. 2. The gallbladder is partially distended. The gallbladder wall appears mildly thickened and hyperemic and there is pericystic inflammation. Correlate with clinical findings and laboratory studies for evidence of acute cholecystitis. Consider right upper quadrant ultrasound or nuclear hepatobiliary scan for further assessment. 3. Additional findings as above.
[2018-10-23] MEDS ORDERED: ACETAMINOPHEN 325 MG TAB PO PRN (00:49)
[2018-10-23] MEDS ORDERED: PROMETHAZINE HCL 12.5 MG in SODIUM CHLORIDE 0.9% 50 ML IV PRN (00:49)
[2018-10-23] MEDS ORDERED: HYDROmorphone INJ 0.5 MG/0.5 ML SYR IV PRN (00:49)
[2018-10-23] MEDS ORDERED: LORazepam 0.5 MG TAB PO PRN (00:49)
[2018-10-23] MEDS ORDERED: NSS + 20MEQ KCL 20 MEQ/1,000 ML BAG IV SCH (01:15)
[2018-10-23] MEDS: PIPERACILLIN/TAZOBACTAM 3.375 GM in DEXTROSE 5% 100 ML IV SCH ×2 (01:57→09:47)
[2018-10-23 04:31] LABS: Partial Thromboplastin Ratio 0.9; Partial Thromboplastin Time 24.2 Seconds (21.0-31.0)
[2018-10-23 04:40] LABS: Albumin Level 2.7 gm/dl (3.4-5.0); BUN Creatinine Ratio 22.4 (10-20); Calcium 8.8 mg/dl (8.5-10.1); Creatinine Clr Calc Pharmacy 72.3 ml/min; Est GFR (African American) 103.2
[2018-10-23 04:43] LABS: Albumin Globulin Ratio 0.9 (0.9-2); Bilirubin,Total 0.7 mg/dl (0.2-1); Globulin 3.1 gm/dl (2.5-4.0); Total Protein 5.8 gm/dl (6.4-8.2)
[2018-10-23 04:49] LABS: Potassium 4.6 mmol/L (3.5-5.1)
[2018-10-23] MEDS ORDERED: SODIUM CHLORIDE 0.9% 1000ML 1,000 ML IV SCH (05:30)
[2018-10-23 05:46] LABS: Basophils # (auto) 0.01 K/uL (0-0.2); Basophils % (auto) 0.1 %; Eosinophils # (auto) 0.01 K/uL (0-0.5); Eosinophils % (auto) 0.1 %; Hematocrit (blood only) 40.8 % (37-47); Hemoglobin 12.6 g/dL (12.0-16.0); Immature Granulocytes # (auto) 0.04 K/uL (0.00-0.02); Immature Granulocytes % (auto) 0.3 %; Lymphocytes # (auto) 0.32 K/uL (1.2-3.4); Lymphocytes % (auto) 2.1 %; Mean Corpuscular Volume 100.2 fL (80-100); Mean Platelet Volume 11.8 fL (7.4-10.4); Monocytes # (auto) 0.14 K/uL (0.11-0.59); Monocytes % (auto) 0.9 %; Neutrophils # (auto) 14.51 K/uL (1.4-6.5); Neutrophils % (auto) 96.5 %; Platelet Count 113 K/uL (130-400); RDW Coefficient of Variation 12.6 % (11.5-14.5); RDW Standard Deviation 46.1 fL (36.4-46.3); Red Blood Count 4.07 M/uL (4.2-5.4); White Blood Count 15.03 K/uL (4.8-10.8)
[2018-10-23 05:47] LABS: Mean Corpuscular Hgb Conc 30.9 g/dL (32-36)
[2018-10-23] MEDS: LEVALBUTEROL HCL 1.25 MG/3 ML NEB NEB SCH ×2 (07:03→13:41)
[2018-10-23] MEDS: dilTIAZem HCL 30 MG TAB PO SCH ×3 (08:21→16:29)
[2018-10-23] MEDS: FAMOTIDINE 20 MG TAB PO SCH (08:21)
[2018-10-23] MEDS: predniSONE 10 MG TABLET PO SCH (08:21)
[2018-10-23] MEDS: BUDESONIDE/FORMOTEROL FUMARATE 160/4.5 60 PUFFS/INHALER INH SCH ×2 (08:22→20:04)
[2018-10-23] MEDS: NYSTATIN CR 15 GM TUBE EXT SCH ×2 (08:22→20:04)
[2018-10-23] MEDS ORDERED: ESCITALOPRAM OXALATE 10 MG TAB PO SCH (09:00)
[2018-10-23] MEDS ORDERED: LISINOPRIL 2.5 MG TAB PO SCH (09:00)
[2018-10-23] MEDS ORDERED: CITALOPRAM 20 MG TAB PO SCH (09:00)
--- NOTE | 2018-10-23 11:58 | Surgery Consultation ---
Date of Consultation October 23, 2018 Assessment & Plan (1) Abnormal CT of the abdomen: This patient had an abnormal CT scan of the abdomen demonstrating some infiltration of the fat around the gallbladder although it was mild. There was no cholelithiasis identified. A ultrasound of the gallbladder might be of benefit in trying to determine that. The fluid may be due to her pulmonary hypertension. She denies abdominal pain but she does have abdominal tenderness although that is the. She would be a very bad candidate for surgical intervention. She cannot lay flat for any length of time whatsoever. There would be concern over not being able to extubate the patient. I would not even entertain surgical intervention unless we can demonstrate that there is an absolute need for it. Obtaining a hepatobiliary scan would be helpful although not sure she could lay flat in order to have that test performed either. We will continue to discuss options with you. Thank you for allowing me to see this patient participate in her care Present on Admission?: Yes History of Present Illness Reason for Consultation: Possible cholecystitis Requesting Physician: Kayleen Kramer DO Attending Physician: Kayleen Kramer DO History of Present Illness We have been asked by Dr. Kramer to see this 78-year-old female who was admitted with a complaint of fatigue and weakness. She also had abdominal pain. To our interview she denies abdominal pain. She denies nausea and vomiting. She denies a change in bowel habits although she does require laxatives to help her move her bowels. She has not had a change in her habits. She has no melena or hematochezia. She denies dysuria and hematuria. She underwent a CT scan of the abdomen and pelvis that showed mild wall thickening with mild fat stranding around the gallbladder and some hyperemia of the mucosa possibly indicative of cholecystitis. There was no cholelithiasis listed however. The patient was unaware that she had any issues with her gallbladder. She denies previous episodes of biliary colic or acute cholecystitis. She has a history of end- stage COPD. She requires oxygen at all times. She has difficulty lying flat. She has a history of pulmonary hypertension as well. Allergies Allergy/AdvReac Type Severity Reaction Status Date / Time budesonide Allergy Severe TOLERATES Verified 10/22/18 17:42 PULMICORT.Swelling of neck, face, all extremities. formoterol Allergy Severe Swelling Verified 10/22/18 17:42 of face and throat. ipratropium Allergy Severe swelling Verified 10/22/18 17:42 of face and neck mometasone furoate Allergy Severe Swelling Verified 10/22/18 17:42 of face and throat. tetanus toxoid, adsorbed Allergy Severe SWELLING Verified 10/22/18 17:42 levofloxacin Allergy Intermediate Flushing. Verified 10/22/18 17:42 strawberry Allergy Mild hives Verified 10/22/18 17:42 Cipro Allergy Unknown UNKOWN Verified 02/20/17 09:05 ciprofloxacin Allergy Unknown UNKOWN Verified 10/22/18 17:42 doxycycline Allergy Unknown unkn Verified 10/22/18 17:42 mivacurium Allergy Unknown UNKNOWN Verified 10/22/18 17:42 carvedilol [From Coreg] AdvReac Intermediate weakness, Verified 10/22/18 21:54 dizziness morphine AdvReac Mild nausea Verified 10/22/18 17:42 Home Medications Home Medications Medication Instructions Recorded Confirmed Type Symbicort 2 puff INHALATION BID 10/09/18 10/22/18 History albuterol sulfate 2 puff INHALATION QID 10/09/18 10/22/18 History diltiazem HCl 30 mg PO DIRECTED 10/09/18 10/22/18 History diltiazem HCl 60 mg PO QAM 10/09/18 10/22/18 History famotidine 40 mg PO DAILY 10/09/18 10/22/18 History hydrocodone-chlorpheniramine 5 ml PO BID 10/09/18 10/22/18 History lorazepam 0.5 mg PO BID PRN 10/09/18 10/22/18 History citalopram [Celexa] 20 mg PO DAILY 10/13/18 10/22/18 History furosemide [Lasix] 20 mg PO DAILY 10/13/18 10/22/18 History ipratropium-albuterol 3 ml INHALATION BID 10/13/18 10/22/18 History melatonin 5 mg PO HS PRN 10/13/18 10/22/18 History potassium chloride 10 meq PO DAILY 10/13/18 10/22/18 History prednisone 10 mg PO DAILY 10/13/18 10/22/18 History ranitidine HCl 300 mg PO HS 10/13/18 10/22/18 History carvedilol 3.125 mg PO BID 30 Days #60 tab 10/15/18 10/22/18 Rx escitalopram oxalate [Lexapro] 5 mg PO DAILY 10/22/18 10/22/18 History nystatin 1 applic TOPICAL BID 10/22/18 10/22/18 History prednisone 20 mg PO DAILY 10/22/18 10/22/18 History Patient History Medical History CKD (chronic kidney disease), stage III (Chronic) Pulmonary hypertension (Chronic) 2Nd degree AV block (Chronic) "s/p pacemaker placement" Chronic respiratory failure (Chronic) COPD exacerbation Pneumonia Respiratory distress (Acute) Surgical History S/P appendectomy (Chronic) S/P tubal ligation (Chronic) S/P placement of cardiac pacemaker (Chronic) Family History Other Family history non-contributory Social History Preferred Language: Kinyarwanda Communication Ability: Effective Compliance Advisor Required: No Beliefs That Will Affect Care: None marital status: Single Current Living Situation: Family Current Living Situation Comment: with son, who is the caregiver Other Information That Helps Us Care for You: No Feels Safe at Home: No Is there a partner from a previous relationship who is making you feel unsafe now?: No Any Concerns about Your Family Situation: No Would You Like to Speak to Someone About Your Situation: No Safety Concerns: Feels Safe At This Time Smoking Status: Former smoker Tobacco Type: cigarettes Cigarettes Per Day: 3-4 packages a day Do You Dip or Chew Tobacco: No Smoking End Date: 10 years ago Second Hand Exposure: No Tobacco Cessation Education Requested by Patient: No Hx Alcohol Use: Yes Alcohol type: wine Hx Substance Use: No Physical Exam Constitutional: Patient sitting up with oxygen in place and is still mildly short of breath and after lying her down for no more than 10 seconds she was unable to continue lying and had to sit back up again due to shortness of breath. Respiratory: Auscultation: + diminished lung sounds (Throughout) Cardiovascular: Rate/Rhythm: regular rate and regular rhythm Gastrointestinal (Abdomen): Inspection/Auscultation: normal bowel sounds; abdomen not distended Percussion/Palpation: + abdomen tender (Throughout with no side predominating) and abdomen soft; abdomen not rigid Lymphatic: no cervical lymphadenopathy Results & Data Vital Signs (Past 12 Hours) Vital Signs Temp Pulse Pulse Resp BP BP Pulse Ox 10/23/18 11:45 37.3 C 95 H 16 159/79 H 92 10/23/18 07:44 36.5 C 68 20 125/71 94 10/23/18 07:05 18 93 10/23/18 04:45 36.8 C 101 H 18 131/83 94 10/23/18 01:00 36.6 C 97 H 92 H 18 132/82 97 10/23/18 00:49 36.7 C 102 H 18 128/68 97 Pulse Ox 10/23/18 11:45 10/23/18 07:44 10/23/18 07:05 10/23/18 04:45 10/23/18 01:00 10/23/18 00:49 97 Laboratory Results 10/23/18 10/23/18 10/23/18 Range/Units 05:32 03:54 03:54 WBC 15.03 H (4.8-10.8) K/uL RBC 4.07 L (4.2-5.4) M/uL Hgb 12.6 (12.0-16.0) g/dL Hct 40.8 (37-47) % MCV 100.2 H (80-100) fL MCH 31.0 (25-34) pg MCHC 30.9 L (32-36) g/dL RDW Std Deviation 46.1 (36.4-46.3) fL RDW Coeff of Romana 12.6 (11.5-14.5) % Plt Count 113 L (130-400) K/uL MPV 11.8 H (7.4-10.4) fL Immature Gran % (Auto) 0.3 % Neut % (Auto) 96.5 % Lymph % (Auto) 2.1 % [place] % (Auto) 0.9 % Eos % (Auto) 0.1 % Baso % (Auto) 0.1 % Immature Gran # (Auto) 0.04 H (0.00-0.02) K/uL Neut # (Auto) 14.51 H (1.4-6.5) K/uL Lymph # (Auto) 0.32 L (1.2-3.4) K/uL [place] # (Auto) 0.14 (0.11-0.59) K/uL Eos # (Auto) 0.01 (0-0.5) K/uL Baso # (Auto) 0.01 (0-0.2) K/uL Absolute Nucleated RBC Nucleated RBC % (auto) Neutrophils % (Manual) Band Neutrophils % Lymphocytes % (Manual) Prolymphocyte % Reactive Lymphs % (Man) Monocytes % (Manual) Eosinophils % (Manual) Basophils % (Manual) Metamyelocytes % (Man) Myelocytes % (Man) Promyelocytes % (Man) Blast Cells % (Manual) Plasma Cell % (Manual) Other Cells % Nucleated RBC % Neutrophils # (Manual) Band Neutrophils # Total Absolute Neuts Lymphocytes # (Manual) Prolymphocyte # Reactive Lymphs # Total Abs Lymphocytes Monocytes # (Manual) Eosinophils # (Manual) Basophils # (Manual) Metamyelocytes # (Man) Myelocytes # (Manual) Promyelocytes # (Man) Blast Cells # (Man) Plasma Cell # (Manual) Other Cells # Nucleated RBCs # (Man) Hypersegmented Neuts Hyposegmented Neuts Hypogranular Neuts Large Granular Lymphs # Lrg Granular Lymphs Hairy Cells Smudge Cells Toxic Granulation Toxic Vacuolation Dohle Bodies Frederick Rods Platelet Estimate Hypogranular Platelets Clumped Platelets Giant Platelets Platelet Satelliting RBC Morphology Polychromasia Hypochromasia Poikilocytosis Basophilic Stippling Anisocytosis Microcytosis Macrocytosis Spherocytes Pappenheimer Bodies Sickle Cells Target Cells Tear Drop Cells Ovalocytes Stomatocytes Marshall-Wh[employer] Bodies Echinocytes Acanthocytes (Spur) Rouleaux RBC Agglutinates Schistocytes RBC Morph Comment Sezary Cell PT (9.0-12.0) Seconds INR (0.9-1.1) APTT (21.0-31.0) Seconds PTT Ratio VBG pH (7.36-7.41) VBG pCO2 (38-50) mmHg VBG pO2 mmHg VBG HCO3 mmol/L VBG O2 Saturation % VBG Base Excess mEq/L Barometric Pressure mm/Hg Sodium 137 (136-145) mmol/L Potassium 4.6 D (3.5-5.1) mmol/L Chloride 93 L (98-107) mmol/L Carbon Dioxide 39 H (21-32) mmol/L Anion Gap 5.0 (3-11) BUN 13 (7-18) mg/dl Creatinine 0.59 L (0.6-1.2) mg/dl Est Cr Clr Drug Dosing 72.3 ml/min Est GFR ( Amer) 103.2 Est GFR (Non-Af Amer) 89.0 BUN/Creatinine Ratio 22.4 H (10-20) Glucose 200 H (70-99) mg/dl Lactate (0.4-2.0) mmol/L Calcium 8.8 (8.5-10.1) mg/dl Magnesium (1.8-2.4) mg/dl Total Bilirubin 0.7 (0.2-1) mg/dl AST 13 L (15-37) U/L ALT 16 (12-78) U/L Alkaline Phosphatase 67 (45-117) U/L Troponin I (0-0.045) ng/ml Total Protein 5.8 L (6.4-8.2) gm/dl Albumin 2.7 L (3.4-5.0) gm/dl Globulin 3.1 (2.5-4.0) gm/dl Albumin/Globulin Ratio 0.9 (0.9-2) Lipase (73-393) U/L TSH (0.300-4.500) uIu/ml Urine Color Urine Appearance (Clear) Urine pH (4.5-7.5) Ur Specific [place] (1.000-1.030) Urine Protein (Negative) Urine Glucose (UA) (Negative) Urine Ketones (Negative) Urine Blood (Negative) Urine Nitrite (Negative) Urine Bilirubin (Negative) Urine Urobilinogen (Negative) Ur Leukocyte Esterase (Negative) Urine WBC (Auto) (0-5) /hpf Urine RBC (Auto) (0-4) /hpf U Hyaline Cast (Auto) (0-5) /lpf U Epithel Cells (Auto) (0-5) /lpf Urine Bacteria (Auto) (Negative) Heparin-PF4 Ab Screen Negative (Negative) 10/23/18 10/23/18 10/22/18 Range/Units 03:54 03:54 18:44 WBC Cancelled (4.8-10.8) K/uL RBC Cancelled (4.2-5.4) M/uL Hgb Cancelled (12.0-16.0) g/dL Hct Cancelled (37-47) % MCV Cancelled (80-100) fL MCH Cancelled (25-34) pg MCHC Cancelled (32-36) g/dL RDW Std Deviation Cancelled (36.4-46.3) fL RDW Coeff of Romana Cancelled (11.5-14.5) % Plt Count Cancelled (130-400) K/uL MPV Cancelled (7.4-10.4) fL Immature Gran % (Auto) Cancelled % Neut % (Auto) Cancelled % Lymph % (Auto) Cancelled % [place] % (Auto) Cancelled % Eos % (Auto) Cancelled % Baso % (Auto) Cancelled % Immature Gran # (Auto) Cancelled (0.00-0.02) K/uL Neut # (Auto) Cancelled (1.4-6.5) K/uL Lymph # (Auto) Cancelled (1.2-3.4) K/uL [place] # (Auto) Cancelled (0.11-0.59) K/uL Eos # (Auto) Cancelled (0-0.5) K/uL Baso # (Auto) Cancelled (0-0.2) K/uL Absolute Nucleated RBC Cancelled Nucleated RBC % (auto) Cancelled Neutrophils % (Manual) Cancelled Band Neutrophils % Cancelled Lymphocytes % (Manual) Cancelled Prolymphocyte % Cancelled Reactive Lymphs % (Man) Cancelled Monocytes % (Manual) Cancelled Eosinophils % (Manual) Cancelled Basophils % (Manual) Cancelled Metamyelocytes % (Man) Cancelled Myelocytes % (Man) Cancelled Promyelocytes % (Man) Cancelled Blast Cells % (Manual) Cancelled Plasma Cell % (Manual) Cancelled Other Cells % Cancelled Nucleated RBC % Cancelled Neutrophils # (Manual) Cancelled Band Neutrophils # Cancelled Total Absolute Neuts Cancelled Lymphocytes # (Manual) Cancelled Prolymphocyte # Cancelled Reactive Lymphs # Cancelled Total Abs Lymphocytes Cancelled Monocytes # (Manual) Cancelled Eosinophils # (Manual) Cancelled Basophils # (Manual) Cancelled Metamyelocytes # (Man) Cancelled Myelocytes # (Manual) Cancelled Promyelocytes # (Man) Cancelled Blast Cells # (Man) Cancelled Plasma Cell # (Manual) Cancelled Other Cells # Cancelled Nucleated RBCs # (Man) Cancelled Hypersegmented Neuts Cancelled Hyposegmented Neuts Cancelled Hypogranular Neuts Cancelled Large Granular Lymphs Cancelled # Lrg Granular Lymphs Cancelled Hairy Cells Cancelled Smudge Cells Cancelled Toxic Granulation Cancelled Toxic Vacuolation Cancelled Dohle Bodies Cancelled Frederick Rods Cancelled Platelet Estimate Cancelled Hypogranular Platelets Cancelled Clumped Platelets Cancelled Giant Platelets Cancelled Platelet Satelliting Cancelled RBC Morphology Cancelled Polychromasia Cancelled Hypochromasia Cancelled Poikilocytosis Cancelled Basophilic Stippling Cancelled Anisocytosis Cancelled Microcytosis Cancelled Macrocytosis Cancelled Spherocytes Cancelled Pappenheimer Bodies Cancelled Sickle Cells Cancelled Target Cells Cancelled Tear Drop Cells Cancelled Ovalocytes Cancelled Stomatocytes Cancelled Marshall-Whiteman [employer]b Bodies Cancelled Echinocytes Cancelled Acanthocytes (Spur) Cancelled Rouleaux Cancelled RBC Agglutinates Cancelled Schistocytes Cancelled RBC Morph Comment Cancelled Sezary Cell Cancelled PT (9.0-12.0) Seconds INR (0.9-1.1) APTT 24.2 (21.0-31.0) Seconds PTT Ratio 0.9 VBG pH (7.36-7.41) VBG pCO2 (38-50) mmHg VBG pO2 mmHg VBG HCO3 mmol/L VBG O2 Saturation % VBG Base Excess mEq/L Barometric Pressure mm/Hg Sodium (136-145) mmol/L Potassium (3.5-5.1) mmol/L Chloride (98-107) mmol/L Carbon Dioxide (21-32) mmol/L Anion Gap (3-11) BUN (7-18) mg/dl Creatinine (0.6-1.2) mg/dl Est Cr Clr Drug Dosing ml/min Est GFR ( Amer) Est GFR (Non-Af Amer) BUN/Creatinine Ratio (10-20) Glucose (70-99) mg/dl Lactate (0.4-2.0) mmol/L Calcium (8.5-10.1) mg/dl Magnesium (1.8-2.4) mg/dl Total Bilirubin (0.2-1) mg/dl AST (15-37) U/L ALT (12-78) U/L Alkaline Phosphatase (45-117) U/L Troponin I (0-0.045) ng/ml Total Protein (6.4-8.2) gm/dl Albumin (3.4-5.0) gm/dl Globulin (2.5-4.0) gm/dl Albumin/Globulin Ratio (0.9-2) Lipase (73-393) U/L TSH (0.300-4.500) uIu/ml Urine Color Yellow Urine Appearance Cloudy A (Clear) Urine pH >= 9.0 H (4.5-7.5) Ur Specific [place] 1.017 (1.000-1.030) Urine Protein Negative (Negative) Urine Glucose (UA) Negative (Negative) Urine Ketones 1+ H (Negative) Urine Blood Negative (Negative) Urine Nitrite Positive A (Negative) Urine Bilirubin Negative (Negative) Urine Urobilinogen Positive H (Negative) Ur Leukocyte Esterase 2+ H (Negative) Urine WBC (Auto) >30 H (0-5) /hpf Urine RBC (Auto) 0-4 (0-4) /hpf U Hyaline Cast (Auto) 1-5 (0-5) /lpf U Epithel Cells (Auto) 0-5 (0-5) /lpf Urine Bacteria (Auto) 4+ H (Negative) Heparin-PF4 Ab Screen (Negative) 10/22/18 10/22/18 10/22/18 Range/Units 17:59 17:59 17:59 WBC (4.8-10.8) K/uL RBC (4.2-5.4) M/uL Hgb (12.0-16.0) g/dL Hct (37-47) % MCV (80-100) fL MCH (25-34) pg MCHC (32-36) g/dL RDW Std Deviation (36.4-46.3) fL RDW Coeff of Romana (11.5-14.5) % Plt Count (130-400) K/uL MPV (7.4-10.4) fL Immature Gran % (Auto) % Neut % (Auto) % Lymph % (Auto) % [place] % (Auto) % Eos % (Auto) % Baso % (Auto) % Immature Gran # (Auto) (0.00-0.02) K/uL Neut # (Auto) (1.4-6.5) K/uL Lymph # (Auto) (1.2-3.4) K/uL [place] # (Auto) (0.11-0.59) K/uL Eos # (Auto) (0-0.5) K/uL Baso # (Auto) (0-0.2) K/uL Absolute Nucleated RBC Nucleated RBC % (auto) Neutrophils % (Manual) Band Neutrophils % Lymphocytes % (Manual) Prolymphocyte % Reactive Lymphs % (Man) Monocytes % (Manual) Eosinophils % (Manual) Basophils % (Manual) Metamyelocytes % (Man) Myelocytes % (Man) Promyelocytes % (Man) Blast Cells % (Manual) Plasma Cell % (Manual) Other Cells % Nucleated RBC % Neutrophils # (Manual) Band Neutrophils # Total Absolute Neuts Lymphocytes # (Manual) Prolymphocyte # Reactive Lymphs # Total Abs Lymphocytes Monocytes # (Manual) Eosinophils # (Manual) Basophils # (Manual) Metamyelocytes # (Man) Myelocytes # (Manual) Promyelocytes # (Man) Blast Cells # (Man) Plasma Cell # (Manual) Other Cells # Nucleated RBCs # (Man) Hypersegmented Neuts Hyposegmented Neuts Hypogranular Neuts Large Granular Lymphs # Lrg Granular Lymphs Hairy Cells Smudge Cells Toxic Granulation Toxic Vacuolation Dohle Bodies Frederick Rods Platelet Estimate Hypogranular Platelets Clumped Platelets Giant Platelets Platelet Satelliting RBC Morphology Polychromasia Hypochromasia Poikilocytosis Basophilic Stippling Anisocytosis Microcytosis Macrocytosis Spherocytes Pappenheimer Bodies Sickle Cells Target Cells Tear Drop Cells Ovalocytes Stomatocytes Marshall-Whiteman [employer] Bodies Echinocytes Acanthocytes (Spur) Rouleaux RBC Agglutinates Schistocytes RBC Morph Comment Sezary Cell PT (9.0-12.0) Seconds INR (0.9-1.1) APTT (21.0-31.0) Seconds PTT Ratio VBG pH 7.39 (7.36-7.41) VBG pCO2 78 H (38-50) mmHg VBG pO2 43 mmHg VBG HCO3 46 mmol/L VBG O2 Saturation 78.5 % VBG Base Excess 17.3 mEq/L Barometric Pressure 732.4 mm/Hg Sodium 139 (136-145) mmol/L Potassium 3.9 (3.5-5.1) mmol/L Chloride 93 L (98-107) mmol/L Carbon Dioxide 42 H* (21-32) mmol/L Anion Gap 5.0 (3-11) BUN 15 (7-18) mg/dl Creatinine 0.61 (0.6-1.2) mg/dl Est Cr Clr Drug Dosing 70.0 ml/min Est GFR ( Amer) 102.1 Est GFR (Non-Af Amer) 88.1 BUN/Creatinine Ratio 24.8 H (10-20) Glucose 92 (70-99) mg/dl Lactate 1.1 (0.4-2.0) mmol/L Calcium 9.5 (8.5-10.1) mg/dl Magnesium 1.8 (1.8-2.4) mg/dl Total Bilirubin 0.7 (0.2-1) mg/dl AST 13 L (15-37) U/L ALT 17 (12-78) U/L Alkaline Phosphatase 71 (45-117) U/L Troponin I < 0.015 (0-0.045) ng/ml Total Protein 6.1 L (6.4-8.2) gm/dl Albumin 2.9 L (3.4-5.0) gm/dl Globulin 3.2 (2.5-4.0) gm/dl Albumin/Globulin Ratio 0.9 (0.9-2) Lipase 89 (73-393) U/L TSH 0.437 (0.300-4.500) uIu/ml Urine Color Urine Appearance (Clear) Urine pH (4.5-7.5) Ur Specific [place] (1.000-1.030) Urine Protein (Negative) Urine Glucose (UA) (Negative) Urine Ketones (Negative) Urine Blood (Negative) Urine Nitrite (Negative) Urine Bilirubin (Negative) Urine Urobilinogen (Negative) Ur Leukocyte Esterase (Negative) Urine WBC (Auto) (0-5) /hpf Urine RBC (Auto) (0-4) /hpf U Hyaline Cast (Auto) (0-5) /lpf U Epithel Cells (Auto) (0-5) /lpf Urine Bacteria (Auto) (Negative) Heparin-PF4 Ab Screen (Negative) 10/22/18 10/22/18 Range/Units 17:59 17:59 WBC 15.02 H (4.8-10.8) K/uL RBC 4.04 L (4.2-5.4) M/uL Hgb 12.6 (12.0-16.0) g/dL Hct 41.2 (37-47) % MCV 102.0 H (80-100) fL MCH 31.2 (25-34) pg MCHC 30.6 L (32-36) g/dL RDW Std Deviation 48.1 H (36.4-46.3) fL RDW Coeff of Romana 12.8 (11.5-14.5) % Plt Count 124 L (130-400) K/uL MPV 11.2 H (7.4-10.4) fL Immature Gran % (Auto) 0.3 % Neut % (Auto) 77.3 % Lymph % (Auto) 12.4 % [place] % (Auto) 7.3 % Eos % (Auto) 2.7 % Baso % (Auto) 0.0 % Immature Gran # (Auto) 0.05 H (0.00-0.02) K/uL Neut # (Auto) 11.60 H (1.4-6.5) K/uL Lymph # (Auto) 1.86 (1.2-3.4) K/uL [place] # (Auto) 1.10 H (0.11-0.59) K/uL Eos # (Auto) 0.41 (0-0.5) K/uL Baso # (Auto) 0.00 (0-0.2) K/uL Absolute Nucleated RBC Nucleated RBC % (auto) Neutrophils % (Manual) Band Neutrophils % Lymphocytes % (Manual) Prolymphocyte % Reactive Lymphs % (Man) Monocytes % (Manual) Eosinophils % (Manual) Basophils % (Manual) Metamyelocytes % (Man) Myelocytes % (Man) Promyelocytes % (Man) Blast Cells % (Manual) Plasma Cell % (Manual) Other Cells % Nucleated RBC % Neutrophils # (Manual) Band Neutrophils # Total Absolute Neuts Lymphocytes # (Manual) Prolymphocyte # Reactive Lymphs # Total Abs Lymphocytes Monocytes # (Manual) Eosinophils # (Manual) Basophils # (Manual) Metamyelocytes # (Man) Myelocytes # (Manual) Promyelocytes # (Man) Blast Cells # (Man) Plasma Cell # (Manual) Other Cells # Nucleated RBCs # (Man) Hypersegmented Neuts Hyposegmented Neuts Hypogranular Neuts Large Granular Lymphs # Lrg Granular Lymphs Hairy Cells Smudge Cells Toxic Granulation Toxic Vacuolation Dohle Bodies Frederick Rods Platelet Estimate Hypogranular Platelets Clumped Platelets Giant Platelets Platelet Satelliting RBC Morphology Polychromasia Hypochromasia Poikilocytosis Basophilic Stippling Anisocytosis Microcytosis Macrocytosis Spherocytes Pappenheimer Bodies Sickle Cells Target Cells Tear Drop Cells Ovalocytes Stomatocytes Marshall-Whiteman [employer] Bodies Echinocytes Acanthocytes (Spur) Rouleaux RBC Agglutinates Schistocytes RBC Morph Comment Sezary Cell PT 10.5 (9.0-12.0) Seconds INR 1.0 (0.9-1.1) APTT 22.2 (21.0-31.0) Seconds PTT Ratio 0.8 VBG pH (7.36-7.41) VBG pCO2 (38-50) mmHg VBG pO2 mmHg VBG HCO3 mmol/L VBG O2 Saturation % VBG Base Excess mEq/L Barometric Pressure mm/Hg Sodium (136-145) mmol/L Potassium (3.5-5.1) mmol/L Chloride (98-107) mmol/L Carbon Dioxide (21-32) mmol/L Anion Gap (3-11) BUN (7-18) mg/dl Creatinine (0.6-1.2) mg/dl Est Cr Clr Drug Dosing ml/min Est GFR ( Amer) Est GFR (Non-Af Amer) BUN/Creatinine Ratio (10-20) Glucose (70-99) mg/dl Lactate (0.4-2.0) mmol/L Calcium (8.5-10.1) mg/dl Magnesium (1.8-2.4) mg/dl Total Bilirubin (0.2-1) mg/dl AST (15-37) U/L ALT (12-78) U/L Alkaline Phosphatase (45-117) U/L Troponin I (0-0.045) ng/ml Total Protein (6.4-8.2) gm/dl Albumin (3.4-5.0) gm/dl Globulin (2.5-4.0) gm/dl Albumin/Globulin Ratio (0.9-2) Lipase (73-393) U/L TSH (0.300-4.500) uIu/ml Urine Color Urine Appearance (Clear) Urine pH (4.5-7.5) Ur Specific [place] (1.000-1.030) Urine Protein (Negative) Urine Glucose (UA) (Negative) Urine Ketones (Negative) Urine Blood (Negative) Urine Nitrite (Negative) Urine Bilirubin (Negative) Urine Urobilinogen (Negative) Ur Leukocyte Esterase (Negative) Urine WBC (Auto) (0-5) /hpf Urine RBC (Auto) (0-4) /hpf U Hyaline Cast (Auto) (0-5) /lpf U Epithel Cells (Auto) (0-5) /lpf Urine Bacteria (Auto) (Negative) Heparin-PF4 Ab Screen (Negative) Diagnostic Findings CT SCAN OF THE ABDOMEN AND PELVIS WITH IV CONTRAST CLINICAL HISTORY: Generalized abdominal pain. COMPARISON STUDY: Abdominal CT dated 06/04/2014. TECHNIQUE: Following the IV administration of 93 cc of Optiray 320, CT scan of the abdomen and pelvis is performed from the lung bases to the proximal femora. Images are reviewed in the axial, sagittal, and coronal planes. IV contrast was administered without complication. A dose lowering technique was utilized adhering to the principles of ALARA. The examination is degraded by streak artifact from the arms which could not be elevated above the abdomen. CT DOSE: 770.37 mGy.cm FINDINGS: Lung bases: The heart is normal in size and without pericardial effusion. Pacemaker leads are noted. Bronchiectasis is noted at both lung bases. There is bibasilar consolidation. Liver: The contrast-enhanced liver is normal in size, contour, and attenuation. There is no intrahepatic biliary ductal dilatation. The hepatic veins and portal veins are patent. Gallbladder: The gallbladder is partially distended. There is mild wall thickening and hyperemia of the gallbladder mucosa. Faint pericholecystic stranding is observed. Spleen: Normal in size and attenuation. Pancreas: Atrophic and grossly unremarkable. Adrenal glands: Unremarkable. Kidneys: The contrast enhanced kidneys demonstrate cortical atrophy and are without hydronephrosis. The kidneys enhance symmetrically. Abdominal vasculature: The abdominal aorta is normal in course and caliber noting moderate atherosclerotic calcification. Bowel: The small bowel and colon are normal in course and caliber. The appendix is not identified and reported surgically absent. Peritoneum: There is no intraperitoneal free air or abdominal ascites. There is laxity of the ventral pelvic wall with diastases of the rectus musculature and protrusion of abdominal contents. Lymphadenopathy: None. Pelvic viscera: The bladder, uterus, and adnexa are normal as visualized. Findings suggest pelvic floor prolapse. Skeletal structures: The skeletal structures are osteopenic. There is mild lumbosacral spondylosis. No lytic or blastic lesions are seen. IMPRESSION: 1. There is bibasilar airspace consolidation. Correlate clinically for evidence of pneumonia/aspiration pneumonitis. Radiographic follow-up to resolution is recommended. 2. The gallbladder is partially distended. The gallbladder wall appears mildly thickened and hyperemic and there is pericystic inflammation. Correlate with clinical findings and laboratory studies for evidence of acute cholecystitis. Consider right upper quadrant ultrasound or nuclear hepatobiliary scan for further assessment. 3. Additional findings as above.
[2018-10-23] MEDS: TRAMADOL HCL 50 MG TABLET PO PRN (12:43)
[2018-10-23] MEDS ORDERED: SIMETHICONE 80 MG CHEW PO PRN (15:48)
--- NOTE | 2018-10-23 15:48 | Hospitalist Progress Note ---
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 The patient was discharged on carvedilol in addition to diltiazem which she had taken chronically. She noted a clearly demonstrated beta-jose angel intolerance with taking this medicine contributing to her weakness and fatigue. This medication has been stopped and diltiazem has been continued. Additionally there is evidence the patient has a urinary tract infection which can also contribute to weakness and fatigue. 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 These were held on admission out of concern for confusion and I believe are contributing to her worsening clinical picture today secondary to withdrawal. Lastly, she stopped her prednisone out of concern for adverse side effect of the drug which she has taken chronically after a recent taper 2 weeks ago. This may have contributed to a relative adrenal insufficiency again contributing to her symptoms of weakness and fatigue. Although initial concern for sepsis is present I do not believe the antibiotics are helping as her clinical picture has worsened today. Will stop Zosyn as intra-abdominal infection is less likely, and will start Rocephin for empiric treatment of a urinary tract infection. We will continue to monitor closely and follow blood cultures and urine culture results. If she worsens clinically will consider reexpanding the antibiotic spectrum. Additionally will add back her cough syrup and Ativan after as prescribed. She is Francesco restarted her prednisone 10 mg daily this morning. And we have held her Coreg with a listed beta-jose angel intolerance. We will continue to monitor after these changes to see how she does. We will not pursue any further work-up for cholecystitis at this time but will keep it in the differential if she is to worsen. Notably liver enzymes were not elevated today and the patient is not febrile. There is some abdominal pain it is present on exam but this is more generalized and I believe may be related to her withdrawal. (6) Pulmonary hypertension: (7) COPD (chronic obstructive pulmonary disease): (8) Chronic respiratory failure: Chronic, stable, no wheezing on exam and no respiratory distress. Continue chronic prednisone at 10 mg daily. Continue scheduled nebs for today but may back these down tomorrow or if they are helping less. Continue oxygen supplementation which is at baseline. (9) CKD (chronic kidney disease), stage III: Stable, at baseline. (10) Thrombocytopenia: Uncertain etiology, platelet factor for antibody is negative. We will proceed with Lovenox for DVT prophylaxis and monitor platelets closely. It is noted that she has multiple areas of ecchymosis on her legs. Will continue to monitor for any development of new areas. (11) DVT prophylaxis: Lovenox DNR/DNI Disposition-continue hospitalization until symptoms improve and she is feeling closer to her baseline Kayleen Kramer DO [facility] Hospitalist Subjective 78-year-old female admitted for weakness and fatigue. Time course is hard to discern from the patient who is a poor historian however, she reports having problems after starting carvedilol which was given at discharge from the hospital approximately two weeks ago. She reports worsen fatigue and weakness with each dose of carvedilol, a new medication for her. She also states that because of visual flashers, she stopped her prednisone thinking it was going to make her go blind per listed side effect profile. She has been on steroids long-term and reported stopping them 3 days prior to arrival. She reports feeling worse today as on admission her hydrocodone-based cough syrup and scheduled Ativan were held. She has developed a new onset generalized abdominal pain as of noon today which is present on exam. Per CT imaging on admission there was a question of cholecystitis however, the patient denies any fevers, chills, or abdominal pain prior to this hospitalization or other issues with eating food. Additionally, she cannot lay flat for long enough to tolerate any type of procedure per general surgery who discussed the case with me this morning. She does have an elevated white blood cell count, and had some noted tachypnea and tachycardia initially concerning for sepsis. She was started on Zosyn, but feels clinically worse today. She was started on scheduled nebulizers with Xopenex but was continued on her chronic prednisone dose of 10 mg and not thought to be in a COPD exacerbation. She is not having breathing difficulties or wheezing today. She is asking for her cough syrup and Ativan to be r einstated as she states this helped her manage phlegm and a chronic cough. She is bedbound at baseline and resides in a hospital bed at home with her son. She notably has multiple bruises up and down her legs bilaterally and states this is from her hospital bed but does not go into further detail. She is asking for food and for any further imaging studies to be canceled for the day. She is ask ing to have her telemetry box removed. She is also reporting some bloating and gaseous distention in her abdomen for which she takes Gas-X at home. She denies any urinary tract infection symptoms which were described in detail to her, however, she does report an increased frequency of urination. Urinalysis report reveals evidence of a possible infection, and again the patient is a poor historian. Review of Systems Review of Systems: All systems reviewed & are unremarkable except as noted in HPI & below Physical Exam Physical Exam: CONSTITUTIONAL: WNWD, vitals as above, generally ill-appearing with generalized weakness, kyphotic posture in bed EYES: normal conjunctivae, no scleral icterus ENT: MMM RESPIRATORY: normal respiratory effort, crackles at her bases bilaterally, moving air in upper lung thomas. CARDIOVASCULAR: regular rate and rhythm, S1 and 2 heard without murmurs, gallops or rubs, no JVD, no peripheral edema GASTROINTESTINAL: soft, generalized tenderness, nondistended. MUSCULOSKELETAL: generalized weakness, head is normocephalic and atraumatic SKIN: warm and dry NEUROLOGIC: No facial palsy, no dysarthria. CN 2-12 grossly intact, no sensory deficit, normal cognition, normal speech PSYCHIATRIC: alert cooperative and oriented to person, place and time. Results & Data Vital Signs (Past 12 Hours) Vital Signs Temp Pulse Resp BP BP Pulse Ox 10/23/18 13:43 92 H 19 92 10/23/18 11:45 37.3 C 95 H 16 159/79 H 92 10/23/18 07:44 36.5 C 68 20 125/71 94 10/23/18 07:05 18 93 10/23/18 04:45 36.8 C 101 H 18 131/83 94 Laboratory Results Short CBC 10/22/18 10/23/18 10/23/18 Range/Units 17:59 03:54 05:32 WBC 15.02 H Cancelled 15.03 H (4.8-10.8) K/uL Hgb 12.6 Cancelled 12.6 (12.0-16.0) g/dL Hct 41.2 Cancelled 40.8 (37-47) % Plt Count 124 L Cancelled 113 L (130-400) K/uL BMP 10/22/18 10/23/18 17:59 03:54 Sodium 139 137 Potassium 3.9 4.6 D Chloride 93 L 93 L Carbon Dioxide 42 H* 39 H BUN 15 13 Creatinine 0.61 0.59 L Glucose 92 200 H Calcium 9.5 8.8 Cardiac Enzymes 10/22/18 Range/Units 17:59 Troponin I < 0.015 (0-0.045) ng/ml Liver Function 10/22/18 10/23/18 Range/Units 17:59 03:54 Total Bilirubin 0.7 0.7 (0.2-1) mg/dl AST 13 L 13 L (15-37) U/L ALT 17 16 (12-78) U/L Alkaline Phosphatase 71 67 (45-117) U/L Albumin 2.9 L 2.7 L (3.4-5.0) gm/dl Urine 10/22/18 Range/Units 18:44 Urine Color Yellow Urine Appearance Cloudy A (Clear) Urine pH >= 9.0 H (4.5-7.5) Ur Specific Etlan 1.017 (1.000-1.030) Urine Protein Negative (Negative) Urine Glucose (UA) Negative (Negative) Medications Administered Current Inpatient Medications Acetaminophen (Tylenol) 650 mg PO Q4H PRN PRN Reason: Pain or Fever Stop: 11/22/18 00:48 Budesonide/Formoterol Fumarate (Symbicort 160mcg/4.5mcg) 2 puffs INH BID [facility] Stop: 11/22/18 08:59 Last Admin: 10/23/18 08:22 Dose: 2 puffs Documented by: Diltiazem HCl (Cardizem) 30 mg PO 1300,1700 [facility] Stop: 11/22/18 12:59 Last Admin: 10/23/18 12:44 Dose: 30 mg Documented by: Diltiazem HCl (Cardizem) 60 mg PO QAM [facility] Stop: 11/22/18 08:59 Last Admin: 10/23/18 08:21 Dose: 60 mg Documented by: Famotidine (Pepcid) 40 mg PO DAILY [facility] Stop: 11/22/18 08:59 Last Admin: 10/23/18 08:21 Dose: 40 mg Documented by: Guaifenesin/Codeine Phosphate (Robitussin-Ac Sugar Free) 5 ml PO BID [facility] Stop: 11/22/18 20:59 Ceftriaxone Sodium 1,000 mg/ (Dextrose) 50 mls @ 100 mls/hr IV Q24H [facility]; Protocol Stop: 10/28/18 15:29 Levalbuterol HCl (Xopenex 1.25mg/3ml Neb) 1.25 mg NEB Q6R [facility] Stop: 11/22/18 07:59 Last Admin: 10/23/18 13:41 Dose: 1.25 mg Documented by: Lorazepam (Ativan) 0.5 mg PO BID [facility]; Protocol Stop: 11/22/18 20:59 Nystatin (Nystatin) 1 appln EXT BID [facility] Stop: 11/22/18 08:59 Last Admin: 10/23/18 08:22 Dose: 1 appln Documented by: Prednisone (Prednisone) 10 mg PO DAILY [facility] Stop: 11/22/18 08:59 Last Admin: 10/23/18 08:21 Dose: 10 mg Documented by: Ranitidine HCl (Zantac) 300 mg PO HS [facility] Stop: 11/22/18 20:59 Tramadol HCl (Ultram) 25 mg PO Q4H PRN PRN Reason: Pain Stop: 11/22/18 00:48 Last Admin: 10/23/18 12:43 Dose: 25 mg Documented by:
[2018-10-23] MEDS ORDERED: SIMETHICONE 80 MG CHEW PO STA (15:53)
[2018-10-23] MEDS: cefTRIAXone SODIUM 1,000 MG in DEXTROSE 5% 50 ML IV SCH (15:58)
[2018-10-23] MEDS: GUAIFENESIN/CODEINE 100MG/10MG 5ML UDC PO SCH (16:28)
[2018-10-23] MEDS ORDERED: Nursing to Pharmacy Communication ONE (16:43)
[2018-10-23] MEDS ORDERED: ENOXAPARIN INJ 40 MG/0.4 ML SYR SQ SCH (18:00)
[2018-10-23] MEDS: LORazepam 0.5 MG TAB PO SCH (20:03)
[2018-10-23] MEDS ORDERED: GUAIFENESIN/CODEINE 100MG/10MG 5ML UDC PO SCH (21:00)
[2018-10-24] MEDS: GUAIFENESIN/CODEINE 100MG/10MG 5ML UDC PO SCH ×2 (05:54→18:54)
[2018-10-24 05:58] LABS: Hematocrit (blood only) 36.6 % (37-47); Hemoglobin 11.4 g/dL (12.0-16.0); Mean Corpuscular Hgb Conc 31.1 g/dL (32-36); Mean Corpuscular Volume 98.7 fL (80-100); Mean Platelet Volume 11.8 fL (7.4-10.4); Platelet Count 116 K/uL (130-400); RDW Standard Deviation 47.1 fL (36.4-46.3); Red Blood Count 3.71 M/uL (4.2-5.4); White Blood Count 18.02 K/uL (4.8-10.8)
[2018-10-24 06:39] LABS: Albumin Level 2.6 gm/dl (3.4-5.0); BUN Creatinine Ratio 25.1 (10-20); Calcium 9.1 mg/dl (8.5-10.1); Creatinine Clr Calc Pharmacy 67.6 ml/min; Est GFR (African American) 100.5; Est GFR (Non-African American) 86.7; Potassium 3.6 mmol/L (3.5-5.1)
[2018-10-24 06:49] LABS: Bilirubin,Total 0.3 mg/dl (0.2-1); Globulin 2.7 gm/dl (2.5-4.0); Total Protein 5.3 gm/dl (6.4-8.2)
[2018-10-24] MEDS ORDERED: GUAIFENESIN/CODEINE 100MG/10MG 5ML UDC PO SCH (07:00)
[2018-10-24] MEDS: LORazepam 0.5 MG TAB PO SCH ×2 (08:37→20:15)
[2018-10-24] MEDS: TRAMADOL HCL 50 MG TABLET PO PRN (08:40)
[2018-10-24] MEDS: predniSONE 10 MG TABLET PO SCH (08:41)
[2018-10-24] MEDS: BUDESONIDE/FORMOTEROL FUMARATE 160/4.5 60 PUFFS/INHALER INH SCH ×2 (08:42→20:15)
[2018-10-24] MEDS: dilTIAZem HCL 30 MG TAB PO SCH ×3 (08:42→16:18)
[2018-10-24] MEDS: NYSTATIN CR 15 GM TUBE EXT SCH ×2 (08:42→20:14)
[2018-10-24] MEDS: FAMOTIDINE 20 MG TAB PO SCH (08:42)
--- NOTE | 2018-10-24 08:50 | Surgery Progress Note ---
Date of Service October 24, 2018 Assessment & Plan (1) Abnormal CT of the abdomen: Patient has been identified to have a UTI Abdominal pain has has resolved Clinically no evidence of acute cholecystitis. Patient would be a poor candidate for surgical intervention Do not feel that surgical intervention is necessary at this time Present on Admission?: Yes Subjective Awake and alert today Does not appear short of breath Feels much better Denies abdominal pain Had bowel movement Physical Exam Gastrointestinal (Abdomen): Inspection/Auscultation: abdomen not distended Percussion/Palpation: abdomen soft; abdomen nontender Results & Data Vital Signs (Past 12 Hours) Vital Signs Temp Pulse Pulse Resp BP Pulse Ox 10/24/18 07:37 37.1 C 97 H 20 139/78 98 10/24/18 04:00 36.7 C 91 H 21 148/83 H 97 10/24/18 01:47 90 10/23/18 22:55 36.8 C 98 H 18 139/84 95 Laboratory Results 10/24/18 10/24/18 Range/Units 05:22 05:22 WBC 18.02 H (4.8-10.8) K/uL RBC 3.71 L (4.2-5.4) M/uL Hgb 11.4 L (12.0-16.0) g/dL Hct 36.6 L (37-47) % MCV 98.7 (80-100) fL MCH 30.7 (25-34) pg MCHC 31.1 L (32-36) g/dL RDW Std Deviation 47.1 H (36.4-46.3) fL RDW Coeff of Romana 13.0 (11.5-14.5) % Plt Count 116 L (130-400) K/uL MPV 11.8 H (7.4-10.4) fL Sodium 139 (136-145) mmol/L Potassium 3.6 D (3.5-5.1) mmol/L Chloride 95 L (98-107) mmol/L Carbon Dioxide 40 H (21-32) mmol/L Anion Gap 4.0 (3-11) BUN 16 (7-18) mg/dl Creatinine 0.64 (0.6-1.2) mg/dl Est Cr Clr Drug Dosing 67.6 ml/min Est GFR ( Amer) 100.5 Est GFR (Non-Af Amer) 86.7 BUN/Creatinine Ratio 25.1 H (10-20) Glucose 140 H (70-99) mg/dl Calcium 9.1 (8.5-10.1) mg/dl Total Bilirubin 0.3 (0.2-1) mg/dl AST 9 L (15-37) U/L ALT 15 (12-78) U/L Alkaline Phosphatase 60 (45-117) U/L Total Protein 5.3 L (6.4-8.2) gm/dl Albumin 2.6 L (3.4-5.0) gm/dl Globulin 2.7 (2.5-4.0) gm/dl Albumin/Globulin Ratio 1.0 (0.9-2)
[2018-10-24] MEDS: cefTRIAXone SODIUM 1,000 MG in DEXTROSE 5% 50 ML IV SCH (16:18)
--- NOTE | 2018-10-24 17:08 | Hospitalist Progress Note ---
Date of Service October 24, 2018 Assessment & Plan (1) Weakness: Possible related to acute illness vs Withdrawal symptom vs adrenal insufficiency CT head showed no hemorrhage, mass effect, or evidence of acute territorial ischemia Received stress dose steroid Continue PT/OT (2) UTI (urinary tract infection): Urine cx positive for citrobacter freundii Elevated WBC possible related to steroid On IV rocephin that is resistant Will change abx to oral bactrim Continue monitor (3) Pulmonary hypertension: (4) COPD (chronic obstructive pulmonary disease): (5) Chronic respiratory failure: On IV steroid, will transition to oral home dose prednisone Continue oxygen supplementation which is at baseline. Stable (6) CKD (chronic kidney disease), stage III: Stable, at baseline. (7) Thrombocytopenia: Unknown etiology Platelet factor for antibody is negative. No signs of bleeding Platelet 116 Monitor CBC (8) DVT prophylaxis: On SCD due to thrombocytopenia Code status DNR/DNI Disposition Will discharge once medically stable Subjective Pt was seen and examined Lying in bed with no distress Pt said that she feels slightly better She said that she is bed kaminski as baseline Continue to have urinary frequency She said that she ate today Denies any abdominal pain, palpitation, dizziness and SOB Physical Exam Physical Exam: General- No acute distress, generalize weakness Head- atraumatic Eyes- PERRL, EOMI, ENT- oropharynx clear Neck- supple, no JVD Lungs- clear to auscultation Heart- regular rhythm; no murmur Abdomen- normal bowel sounds, soft, nontender Extremities- no calf tenderness Neuro- alert, oriented PERRL,; no facial palsy Skin- warm & dry, +ecchymoses in extremities Results & Data Vital Signs (Past 12 Hours) Vital Signs Temp Pulse Resp BP Pulse Ox 10/24/18 15:31 36.7 C 85 20 147/69 H 93 10/24/18 11:54 36.6 C 80 20 164/92 H 91 10/24/18 07:37 37.1 C 97 H 20 139/78 98
[2018-10-24] MEDS: SULFAMETHOXAZOLE/TRIMETHOPRIM DS 800/160MG TAB PO SCH (18:13)
[2018-10-25] MEDS: SULFAMETHOXAZOLE/TRIMETHOPRIM DS 800/160MG TAB PO SCH ×2 (06:32→17:24)
[2018-10-25] MEDS: GUAIFENESIN/CODEINE 100MG/10MG 5ML UDC PO SCH ×2 (06:32→18:13)
[2018-10-25 07:31] LABS: Hematocrit (blood only) 38.8 % (37-47); Mean Corpuscular Hgb Conc 30.9 g/dL (32-36); Platelet Count 123 K/uL (130-400); Platelet Estimate Decreased (Normal); RDW Coefficient of Variation 13.4 % (11.5-14.5); RDW Standard Deviation 49.8 fL (36.4-46.3); Red Blood Count 3.84 M/uL (4.2-5.4)
[2018-10-25 07:33] LABS: BUN Creatinine Ratio 25.4 (10-20); Calcium 9.5 mg/dl (8.5-10.1); Creatinine Clr Calc Pharmacy 59.2 ml/min; Est GFR (African American) 92.7
[2018-10-25] MEDS: BUDESONIDE/FORMOTEROL FUMARATE 160/4.5 60 PUFFS/INHALER INH SCH ×2 (08:50→20:29)
[2018-10-25] MEDS: LORazepam 0.5 MG TAB PO SCH ×2 (08:50→20:29)
[2018-10-25] MEDS: dilTIAZem HCL 30 MG TAB PO SCH ×3 (08:51→17:24)
[2018-10-25] MEDS: predniSONE 10 MG TABLET PO SCH (08:51)
[2018-10-25] MEDS: NYSTATIN CR 15 GM TUBE EXT SCH ×2 (08:52→20:28)
[2018-10-25] MEDS: FAMOTIDINE 20 MG TAB PO SCH (08:52)
--- NOTE | 2018-10-25 15:30 | Hospitalist Progress Note ---
Date of Service October 25, 2018 Assessment & Plan (1) Weakness: Possible related to acute illness vs Withdrawal symptom vs adrenal insufficiency CT head showed no hemorrhage, mass effect, or evidence of acute territorial ischemia Received stress dose steroid Continue PT/OT (2) UTI (urinary tract infection): Urine cx positive for citrobacter freundii Elevated WBC possible related to steroid Rocephin was changed to Bactrim Continue monitor (3) Pulmonary hypertension: (4) COPD (chronic obstructive pulmonary disease): (5) Chronic respiratory failure: IV steroid,t ransition to oral home dose prednisone Continue oxygen supplementation which is at baseline. Stable (6) Dilated gallbladder: CT abd/pelvis showed gallbladder wall appears mildly thickened and hyperemic and there is pericystic inflammation Clinically no evidence of acute cholecystitis. Surgery on board poor candidate for surgical intervention Tolerated diet Denies any abdominal pain (7) CKD (chronic kidney disease), stage III: Stable, at baseline. (8) Thrombocytopenia: Unknown etiology Platelet factor for antibody is negative. No signs of bleeding Platelet 123 today Monitor CBC (9) DVT prophylaxis: On SCD due to thrombocytopenia Code status DNR/DNI Disposition Will discharge once medically stable Subjective Pt was seen and examined Lying in bed with no distress Pt said that she feels weak today she said that she feels the weakness worst today after starting the Bactrim Denies any chest pain, palpitation, dizziness and SOB Physical Exam Physical Exam: General- No acute distress, generalize weakness Head- atraumatic Eyes- PERRL, EOMI, ENT- oropharynx clear Neck- supple, no JVD Lungs- clear to auscultation Heart- regular rhythm; no murmur Abdomen- normal bowel sounds, soft, nontender Extremities- no calf tenderness Neuro- alert, oriented PERRL,; no facial palsy Skin- warm & dry, +ecchymoses in extremities Results & Data Vital Signs (Past 12 Hours) Vital Signs Temp Pulse Pulse Resp BP BP Pulse Ox 10/25/18 14:48 37.1 C 20 145/82 H 96 10/25/18 11:17 36.9 C 84 20 158/81 H 91 10/25/18 08:00 109 H 10/25/18 07:45 36.8 C 93 H 20 144/83 H 92 10/25/18 04:19 36.8 C 96 H 18 150/77 H 90
[2018-10-26 06:04] LABS: Hemoglobin 11.9 g/dL (12.0-16.0); Mean Corpuscular Hgb Conc 31.3 g/dL (32-36); Mean Corpuscular Volume 99.2 fL (80-100); Platelet Count 112 K/uL (130-400); RDW Coefficient of Variation 13.6 % (11.5-14.5); RDW Standard Deviation 48.6 fL (36.4-46.3); Red Blood Count 3.83 M/uL (4.2-5.4); White Blood Count 11.59 K/uL (4.8-10.8)
[2018-10-26] MEDS: GUAIFENESIN/CODEINE 100MG/10MG 5ML UDC PO SCH ×2 (06:30→18:07)
[2018-10-26] MEDS: LORazepam 0.5 MG TAB PO SCH ×2 (08:28→21:04)
[2018-10-26] MEDS: predniSONE 10 MG TABLET PO SCH (08:29)
[2018-10-26] MEDS: dilTIAZem HCL 30 MG TAB PO SCH ×3 (08:30→16:51)
[2018-10-26] MEDS: SULFAMETHOXAZOLE/TRIMETHOPRIM DS 800/160MG TAB PO SCH ×2 (08:30→16:52)
[2018-10-26] MEDS: FAMOTIDINE 20 MG TAB PO SCH (08:30)
[2018-10-26] MEDS: NYSTATIN CR 15 GM TUBE EXT SCH ×2 (08:31→21:04)
[2018-10-26] MEDS: BUDESONIDE/FORMOTEROL FUMARATE 160/4.5 60 PUFFS/INHALER INH SCH ×2 (08:34→21:04)
--- NOTE | 2018-10-26 14:58 | Hospitalist Progress Note ---
Date of Service October 26, 2018 Assessment & Plan (1) Weakness: Possible related to acute illness vs Withdrawal symptom vs adrenal insufficiency CT head showed no hemorrhage, mass effect, or evidence of acute territorial ischemia Received stress dose steroid Continue PT/OT (2) UTI (urinary tract infection): Urine cx positive for citrobacter freundii Elevated WBC possible related to steroid Rocephin was changed to Bactrim Continue bactrim Continue monitor (3) Pulmonary hypertension: (4) COPD (chronic obstructive pulmonary disease): (5) Chronic respiratory failure: Continue oral home dose prednisone Continue oxygen supplementation which is at baseline. Stable (6) Dilated gallbladder: CT abd/pelvis showed gallbladder wall appears mildly thickened and hyperemic and there is pericystic inflammation Clinically no evidence of acute cholecystitis. Surgery on board poor candidate for surgical intervention Tolerated diet Denies any abdominal pain (7) CKD (chronic kidney disease), stage III: Stable, at baseline. (8) Thrombocytopenia: Unknown etiology Platelet factor for antibody is negative. No signs of bleeding Platelet 112 today Monitor CBC (9) DVT prophylaxis: On SCD due to thrombocytopenia Code status DNR/DNI Disposition Will discharge once medically stable Palliative care consult as per son request Subjective Pt was seen and examined Lying in bed with no distress Pt looks much better today She said that she does not want to move around because of pain I spoke to son yesterday and son said that pt only stays in her bed She does not participate in therapy Son would like to speak to palliative and case picker Denies any chest pain, palpitation, dizziness and SOB Physical Exam Physical Exam: General- No acute distress, generalize weakness Head- atraumatic Eyes- PERRL, EOMI, ENT- oropharynx clear Neck- supple, no JVD Lungs- clear to auscultation Heart- regular rhythm; no murmur Abdomen- normal bowel sounds, soft, nontender Extremities- no calf tenderness Neuro- alert, oriented PERRL,; no facial palsy Skin- warm & dry, +ecchymoses in extremities Results & Data Vital Signs (Past 12 Hours) Vital Signs Temp Pulse Pulse Resp BP BP Pulse Ox 10/26/18 11:47 36.9 C 83 18 150/85 H 94 10/26/18 08:00 36.7 C 91 H 96 H 20 164/102 H 151/93 H 97 10/26/18 04:04 36.6 C 90 18 177/95 H 96
[2018-10-26] MEDS ORDERED: ALBUT/IPRATROP 3MG/0.5MG NEB 3 ML VIAL NEB PRN (15:06)
[2018-10-27] MEDS: TRAMADOL HCL 50 MG TABLET PO PRN (00:26)
[2018-10-27] MEDS: SULFAMETHOXAZOLE/TRIMETHOPRIM DS 800/160MG TAB PO SCH ×2 (06:31→17:42)
[2018-10-27] MEDS: GUAIFENESIN/CODEINE 100MG/10MG 5ML UDC PO SCH ×3 (06:31→19:20)
[2018-10-27 06:40] LABS: Basophils # (auto) 0.04 K/uL (0-0.2); Basophils % (auto) 0.3 %; Eosinophils # (auto) 0.39 K/uL (0-0.5); Eosinophils % (auto) 3.3 %; Hematocrit (blood only) 37.1 % (37-47); Hemoglobin 11.6 g/dL (12.0-16.0); Immature Granulocytes # (auto) 0.04 K/uL (0.00-0.02); Immature Granulocytes % (auto) 0.3 %; Lymphocytes # (auto) 2.15 K/uL (1.2-3.4); Lymphocytes % (auto) 18.4 %; Mean Corpuscular Hgb Conc 31.3 g/dL (32-36); Mean Corpuscular Volume 100.5 fL (80-100); Mean Platelet Volume 11.8 fL (7.4-10.4); Monocytes # (auto) 1.26 K/uL (0.11-0.59); Monocytes % (auto) 10.8 %; Neutrophils # (auto) 7.81 K/uL (1.4-6.5); Neutrophils % (auto) 66.9 %; Platelet Count 105 K/uL (130-400); RDW Coefficient of Variation 13.5 % (11.5-14.5); RDW Standard Deviation 49.5 fL (36.4-46.3); Red Blood Count 3.69 M/uL (4.2-5.4); White Blood Count 11.69 K/uL (4.8-10.8)
[2018-10-27] MEDS: LORazepam 0.5 MG TAB PO SCH ×2 (06:43→21:08)
[2018-10-27] MEDS ORDERED: BISACODYL 10 MG SUPP PR STA (07:10)
[2018-10-27 07:15] LABS: BUN Creatinine Ratio 18.3 (10-20); Calcium 9.4 mg/dl (8.5-10.1); Creatinine Clr Calc Pharmacy 56.1 ml/min; Est GFR (African American) 86.9; Potassium 4.4 mmol/L (3.5-5.1)
[2018-10-27] MEDS: predniSONE 10 MG TABLET PO SCH (08:47)
[2018-10-27] MEDS: dilTIAZem HCL 30 MG TAB PO SCH ×3 (08:47→17:42)
[2018-10-27] MEDS: FAMOTIDINE 20 MG TAB PO SCH (08:48)
[2018-10-27] MEDS: NYSTATIN CR 15 GM TUBE EXT SCH ×2 (08:49→19:37)
[2018-10-27] MEDS: CARVEDILOL 3.125 MG TAB PO SCH ×2 (08:54→21:06)
[2018-10-27] MEDS: BUDESONIDE/FORMOTEROL FUMARATE 160/4.5 60 PUFFS/INHALER INH SCH ×2 (09:02→21:07)
--- NOTE | 2018-10-27 11:21 | Palliative Care Consultation ---
Date of Consultation October 27, 2018 Assessment & Plan (1) Goals of care, counseling/discussion: -78 year old female patient with PMH advanced/end-stage COPD, obesity, AV block, pulmonary htn, pneumonia, CKD stage III, and others, presented to the hospital with weakness and SOB. She was in [facility] recently for two weeks due to COPD exacerbation and possible pneumonia. She is known well to the palliative care service for end stage COPD. Patient has been on/off hospice for the last few years, most recently was discharged from hospice due to a prolonged prognosis. During this admission, CT abd/pelvis showed partially distended gall bladder. Surgeon consulted and stated no reason for surgery at this time. Patient remains on her usual 3-4LNC, which she is on all the time at home as well. Palliative care is reconsulted as patient and son/caregiver, Moncho, have requested. -Met with patient in room 280. She is AA/O x4. C/O weakness and SOB. Denies pain at this time. Has purewick catheter for frequent urinary incontinence. -Patient was recently evaluated by [facility] and [facility]-- both stated she is not currently a candidate for hospice as she is not actively declining. Patient and her son were frustrated by this, but understand. Patient states her goal is to get back home and hire private duty caregivers to help her son. -Discussed health care goals. Patient is not quite ready to say that she does not want to come to the hospital for treatment when necessary. For this reason, and lack of active decline in her condition, I would agree with the fact that she is not hospice appropriate at this time. [facility] has agreed to at least follow with patient periodically and sign her up when appropriate. -patient did request to do a living will/POA her at the hospice-- ordered patient retail service representative visit. -Patient gave me permission to call her son, Moncho, to discuss goals and DC planning. She did ask that I not mention that she is doing a living will/POA. Spoke with Moncho for 40 minutes on the phone. He voiced a lot of frustrations with caring for his mother-- he is feeling burnt out. However, he is willing to continue providing care at home for patient. Ultimately he is supportive of his mother's decisions and wants to honor them. -Plan: patient to return home under 24/7 care from her son. Hire extra help via private duty caregivers. Living will/POA paperwork to be done today. Will offer POLST form to be completed with patient tomorrow. (2) Dilated gallbladder: (3) COPD (chronic obstructive pulmonary disease): (4) Weakness: Supervising Physician Co-Signing Physician Notes Chart reviewed, patient seen and examined. Collaborated with HENRIK Scott Patient is known to our service from previous admissions. Patient was recently discharged from hospice due to stabilization. Patient's goals of care-patient continues to want aggressive care and hospitalization which is not consistent with hospice philosophy. PE: Patient awake alert, appears comfortable at rest HEENT: EOMI, hearing within normal limits Respiratory: Diminished breath sounds all thomas, adequate saturation on 4 L nasal cannula CV: Regular rate Abdomen: Soft, nontender Neuro: Alert and oriented Agree with above note, assessment and plan as per HENRIK Scott-will continue to follow and assist with medical decision making as needed. History of Present Illness Reason for Consultation: Goals of care Requesting Physician: Dr. Back Attending Physician: Tonia Back MD History of Present Illness This 78 year old female patient with PMH advanced/end-stage COPD, obesity, AV block, pulmonary htn, pneumonia, CKD stage III, and others, presented to the hospital with weakness and SOB. She was in [facility] recently for two weeks due to COPD exacerbation and possible pneumonia. She is known well to the palliative care service for end stage COPD. Patient has been on/off hospice for the last few years, most recently was discharged from hospice due to a prolonged prognosis. During this admission, CT abd/pelvis showed partially distended gall bladder. Surgeon consulted and stated no reason for surgery at this time. Patient remains on her usual 3-4LNC, which she is on all the time at home as well. Palliative care is reconsulted as patient and son/caregiver, Moncho, have requested. Thank you kindly for this consult. I will follow as needed. Allergies Allergy/AdvReac Type Severity Reaction Status Date / Time budesonide Allergy Severe TOLERATES Verified 10/22/18 17:42 PULMICORT.Swelling of neck, face, all extremities. formoterol Allergy Severe Swelling Verified 10/22/18 17:42 of face and throat. ipratropium Allergy Severe swelling Verified 10/22/18 17:42 of face and neck mometasone furoate Allergy Severe Swelling Verified 10/22/18 17:42 of face and throat. tetanus toxoid, adsorbed Allergy Severe SWELLING Verified 10/22/18 17:42 levofloxacin Allergy Intermediate Flushing. Verified 10/22/18 17:42 strawberry Allergy Mild hives Verified 10/22/18 17:42 Cipro Allergy Unknown UNKOWN Verified 02/20/17 09:05 ciprofloxacin Allergy Unknown UNKOWN Verified 10/22/18 17:42 doxycycline Allergy Unknown unkn Verified 10/22/18 17:42 mivacurium Allergy Unknown UNKNOWN Verified 10/22/18 17:42 carvedilol [From Coreg] AdvReac Intermediate weakness, Verified 10/22/18 21:54 dizziness morphine AdvReac Mild nausea Verified 10/22/18 17:42 Home Medications Home Medications Medication Instructions Recorded Confirmed Type Symbicort 2 puff INHALATION BID 10/09/18 10/22/18 History albuterol sulfate 2 puff INHALATION QID 10/09/18 10/22/18 History diltiazem HCl 30 mg PO DIRECTED 10/09/18 10/22/18 History diltiazem HCl 60 mg PO QAM 10/09/18 10/22/18 History famotidine 40 mg PO DAILY 10/09/18 10/22/18 History hydrocodone-chlorpheniramine 5 ml PO BID 10/09/18 10/22/18 History lorazepam 0.5 mg PO BID PRN 10/09/18 10/22/18 History citalopram [Celexa] 20 mg PO DAILY 10/13/18 10/22/18 History furosemide [Lasix] 20 mg PO DAILY 10/13/18 10/22/18 History ipratropium-albuterol 3 ml INHALATION BID 10/13/18 10/22/18 History melatonin 5 mg PO HS PRN 10/13/18 10/22/18 History potassium chloride 10 meq PO DAILY 10/13/18 10/22/18 History prednisone 10 mg PO DAILY 10/13/18 10/22/18 History ranitidine HCl 300 mg PO HS 10/13/18 10/22/18 History carvedilol 3.125 mg PO BID 30 Days #60 tab 10/15/18 10/22/18 Rx escitalopram oxalate [Lexapro] 5 mg PO DAILY 10/22/18 10/22/18 History nystatin 1 applic TOPICAL BID 10/22/18 10/22/18 History prednisone 20 mg PO DAILY 10/22/18 10/22/18 History Patient History Medical History CKD (chronic kidney disease), stage III (Chronic) Pulmonary hypertension (Chronic) 2Nd degree AV block (Chronic) "s/p pacemaker placement" Chronic respiratory failure (Chronic) COPD exacerbation Pneumonia Respiratory distress (Acute) Surgical History S/P appendectomy (Chronic) S/P tubal ligation (Chronic) S/P placement of cardiac pacemaker (Chronic) Family History Other Family history non-contributory Social History Preferred Language: Panamanian Communication Ability: Effective Research Group Director Required: No Beliefs That Will Affect Care: None marital status: Single Current Living Situation: Family Current Living Situation Comment: with son, who is the caregiver Other Information That Helps Us Care for You: No Feels Safe at Home: No Is there a partner from a previous relationship who is making you feel unsafe now?: No Any Concerns about Your Family Situation: No Would You Like to Speak to Someone About Your Situation: No Safety Concerns: Feels Safe At This Time Smoking Status: Former smoker Tobacco Type: cigarettes ; Cigarettes Per Day: 3- 4 packages a day ; Do You Dip or Chew Tobacco: No ; Smoking End Date: 10 years ago ; Second Hand Exposure: No ; Tobacco Cessation Education Requested by Patient: No Hx Alcohol Use: Yes Alcohol type: wine Hx Substance Use: No Review of Systems Constitutional: + weakness Respiratory: + cough, + dyspnea and + dyspnea on exertion Cardiovascular: no chest pain and no edema Gastrointestinal: no abdominal pain Neurologic: no confusion Psychiatric: + anxiety Physical Exam Constitutional: + ill appearing ENMT: Ears: no hearing impairment Neck: normal visual inspection Respiratory: + labored breathing (mildly labored at rest at baseline) Auscultation: + diminished lung sounds; no wheezes Cardiovascular: RRR, no murmur, no edema Gastrointestinal (Abdomen): Inspection/Auscultation: abdomen normal to inspection and normal bowel sounds Percussion/Palpation: abdomen soft Skin: + ecchymosis Neurologic: moves all extremities and awake Psychiatric: A+Ox3, euthymic affect Results & Data Vital Signs (Past 12 Hours) Vital Signs Temp Pulse Resp BP Pulse Ox 10/27/18 06:52 36.7 C 105 H 21 171/83 H 91 10/27/18 04:15 36.8 C 20 157/83 H 93 10/26/18 23:25 37.1 C 95 H 20 153/82 H 93 PG Care Time/CCT Prolonged Care Time Prolonged Care Time: Yes Total Prolonged Care Time: 100 Time Spent Midlevel 100
--- NOTE | 2018-10-27 16:34 | Hospitalist Progress Note ---
Date of Service October 27, 2018 Assessment & Plan (1) Weakness: Possible related to acute illness vs Withdrawal symptom vs adrenal insufficiency CT head showed no hemorrhage, mass effect, or evidence of acute territorial ischemia Received stress dose steroid Continue PT/OT (2) UTI (urinary tract infection): Urine cx positive for citrobacter freundii Elevated WBC possible related to steroid Rocephin was changed to Bactrim Continue bactrim Continue monitor (3) Pulmonary hypertension: (4) COPD (chronic obstructive pulmonary disease): (5) Chronic respiratory failure: Continue oral home dose prednisone Continue oxygen supplementation which is at baseline. Stable (6) Dilated gallbladder: CT abd/pelvis showed gallbladder wall appears mildly thickened and hyperemic and there is pericystic inflammation Clinically no evidence of acute cholecystitis. Surgery on board poor candidate for surgical intervention Tolerated diet Denies any abdominal pain (7) CKD (chronic kidney disease), stage III: Stable, at baseline. (8) Thrombocytopenia: Unknown etiology Platelet factor for antibody is negative. No signs of bleeding Platelet 105 today Monitor CBC (9) DVT prophylaxis: On SCD due to thrombocytopenia Code status DNR/DNI Disposition Will discharge tomorrow Palliative care on board, not hospice appropriate at this time. Subjective Pt was seen and examined. Lying in bed with no distress Pt said that she feels a little better since tele monitor discontinued Pt met with palliative care today As per Palliative care, she is not hospice appropriate at this time. Denies any chest pain, palpitation and fever Physical Exam Physical Exam: General- No acute distress, generalize weakness Head- atraumatic Eyes- PERRL, EOMI, ENT- oropharynx clear Neck- supple, no JVD Lungs- clear to auscultation Heart- regular rhythm; no murmur Abdomen- normal bowel sounds, soft, nontender Extremities- no calf tenderness Neuro- alert, oriented PERRL,; no facial palsy Skin- warm & dry, +ecchymoses in extremities Results & Data Vital Signs (Past 12 Hours) Vital Signs Temp Pulse Resp BP BP Pulse Ox 10/27/18 15:26 36.8 C 76 18 141/84 H 97 10/27/18 11:45 80 16 139/83 94 10/27/18 06:52 36.7 C 105 H 21 171/83 H 91
[2018-10-27] MEDS ORDERED: BISACODYL 10 MG SUPP PR ONE (19:34)
[2018-10-28] MEDS: SULFAMETHOXAZOLE/TRIMETHOPRIM DS 800/160MG TAB PO SCH (06:00)
[2018-10-28] MEDS: GUAIFENESIN/CODEINE 100MG/10MG 5ML UDC PO SCH (06:03)
[2018-10-28] MEDS ORDERED: guaiFENesin SUGAR FREE 200 MG/10 ML UDC PO PRN (06:40)
[2018-10-28] MEDS ORDERED: LEVALBUTEROL HCL 1.25 MG/3 ML NEB NEB PRN (06:43)
[2018-10-28] MEDS ORDERED: methylPREDNISolone 40 MG in SYRINGE 0 ML IV ONE (07:00)
[2018-10-28 07:15] LABS: Basophils # (auto) 0.03 K/uL (0-0.2); Basophils % (auto) 0.2 %; Eosinophils # (auto) 0.36 K/uL (0-0.5); Eosinophils % (auto) 2.9 %; Hematocrit (blood only) 39.3 % (37-47); Hemoglobin 12.4 g/dL (12.0-16.0); Immature Granulocytes # (auto) 0.06 K/uL (0.00-0.02); Immature Granulocytes % (auto) 0.5 %; Lymphocytes # (auto) 2.21 K/uL (1.2-3.4); Lymphocytes % (auto) 17.5 %; Mean Corpuscular Hgb Conc 31.6 g/dL (32-36); Mean Corpuscular Volume 98.5 fL (80-100); Mean Platelet Volume 11.7 fL (7.4-10.4); Monocytes # (auto) 0.92 K/uL (0.11-0.59); Monocytes % (auto) 7.3 %; Neutrophils # (auto) 9.05 K/uL (1.4-6.5); Neutrophils % (auto) 71.6 %; Platelet Count 119 K/uL (130-400); RDW Coefficient of Variation 13.3 % (11.5-14.5); RDW Standard Deviation 48.1 fL (36.4-46.3); Red Blood Count 3.99 M/uL (4.2-5.4); White Blood Count 12.63 K/uL (4.8-10.8)
[2018-10-28 07:17] LABS: Base Excess ABG 8.4 mEq/L (-9-1.8); HCO3 ABG 36 mmol/L (19-24); Oxygen Saturation ABG 92.5 % (90-95); PCO2 ABG 65 mmHg (35-46); PO2 ABG 69 mm/Hg (80-95); pH ABG 7.36 (7.35-7.45)
[2018-10-28] MEDS ORDERED: LORazepam 0.5 MG TAB PO SCH (07:30)
[2018-10-28 07:32] LABS: Allen Test Pos (Pos)
--- NOTE | 2018-10-28 07:36 | XRay Report ---
XR chest 1V portable CLINICAL HISTORY: 78 years-old Female presenting with cough. TECHNIQUE: Portable upright AP view of the chest was obtained. COMPARISON: 10/22/2018. FINDINGS: Left subclavian pacer with leads in the right atrium and right ventricular apex. External foreign bod ies project over the right hemithorax at the lung base to grating evaluation. Atherosclerosis of the aortic arch. Cardiac silhouette mildly enlarged. Slight improved aeration of t he left lung base. A lesser degree of vague opacity at the right lung base, which may be vascular in etiology or due to overlapping structures. Heterogeneity of lung parenchyma. No new focal opacity. Os seous structures normal. IMPRESSION: 1. Improved aeration of the left lung base with near resolution of the left lung base infiltrate. Co ntinued follow-up to resolution could be considered with a PA and lateral view. 2. Mild cardiomegaly. No advanced congestive change. 3. Heterogeneity lung parenchyma may imply underlying emphysema. Electronically signed by: Clovis Montoya M.D. 10/28/2018 7:35 AM
[2018-10-28 07:45] LABS: BUN Creatinine Ratio 13.4 (10-20); Calcium 8.9 mg/dl (8.5-10.1); Creatinine Clr Calc Pharmacy 42.4 ml/min; Est GFR (African American) 63.4; Est GFR (Non-African American) 54.7
[2018-10-28] MEDS ORDERED: dilTIAZem HCL 30 MG TAB PO SCH (08:00)
[2018-10-28] MEDS: FAMOTIDINE 20 MG TAB PO SCH (08:17)
[2018-10-28] MEDS: NYSTATIN CR 15 GM TUBE EXT SCH (08:18)
[2018-10-28] MEDS: BUDESONIDE/FORMOTEROL FUMARATE 160/4.5 60 PUFFS/INHALER INH SCH (08:19)
[2018-10-28] MEDS: TRAMADOL HCL 50 MG TABLET PO PRN (08:33)
[2018-10-28] MEDS: dilTIAZem HCL 30 MG TAB PO SCH (11:53)
--- NOTE | 2018-10-28 13:13 | Palliative Care Progress Note ---
Date of Service October 28, 2018 Assessment & Plan (1) Goals of care, counseling/discussion: -Patient had a coughing episode earlier, nurses were concerned about aspiration. CXR obtained which of course will not show aspiration yet, but did show improved left lung base aeration. VS stable on usual 4.5LNC. -POLST form discussed and completed today as follows: DNR, limited additional interventions, abx with comfort as the goal, no artificial hydration/nutrition. Patient would like her cousin, Starr Mcgrath, to be her surrogate decision maker in the case she is unable. -Plan is for patient to go home where she lives with her son. Not appropriate for hospice at this time. She does want to return to the hospital if indicated. -Palliative care will sign off for now. Please contact us with any further palliative care needs or changes in condition. (2) Dilated gallbladder: (3) COPD (chronic obstructive pulmonary disease): (4) Weakness: Subjective Patient feeling about the same during my visit. She did have a coughing fit, possible aspiration event earlier, but her VS are stable and she is in no distress. Review of Systems Constitutional: + weakness Respiratory: + cough, + dyspnea and + dyspnea on exertion Cardiovascular: no chest pain Gastrointestinal: no abdominal pain Psychiatric: + anxiety Physical Exam Constitutional: + ill appearing ENMT: Ears: no hearing impairment Neck: normal visual inspection Respiratory: + labored breathing (mildly labored at rest at baseline) Auscultation: + diminished lung sounds and + rhonchi (fine rhonchi upper lobes anteriorly); no wheezes Cardiovascular: RRR, no murmur, no edema Gastrointestinal (Abdomen): Inspection/Auscultation: abdomen normal to inspection and normal bowel sounds Percussion/Palpation: abdomen soft Skin: + ecchymosis Neurologic: moves all extremities and awake Psychiatric: A+Ox3, euthymic affect Results & Data Vital Signs (Past 12 Hours) Vital Signs Temp Pulse Pulse Resp BP Pulse Ox 10/28/18 11:00 37.1 C 94 H 20 138/82 93 10/28/18 07:27 36.6 C 115 H 16 148/91 H 90 10/28/18 06:32 114 H 29 H 86 L 10/28/18 03:32 36.6 C 81 81 22 158/95 H 97 PG Care Time/CCT Total # of Minutes Spent Total Time Spent with Patient: Total time spent is greater than 50% in coordination of care (as documented) at patient's floor/unit and/or counseling patient: Prolonged Care Time Prolonged Care Time: Yes Total Prolonged Care Time: 65 Time Spent Midlevel 65 minutes with >50% of time spent at bedside with patient discussing GOC and POLST.
--- NOTE | 2018-10-28 15:28 | Hospitalist Progress Note ---
Date of Service October 28, 2018 Assessment & Plan (1) Weakness: Possible related to acute illness vs Withdrawal symptom vs adrenal insufficiency CT head showed no hemorrhage, mass effect, or evidence of acute territorial ischemia Received stress dose steroid Continue PT/OT Fall precaution (2) UTI (urinary tract infection): Urine cx positive for citrobacter freundii Elevated WBC possible related to steroid Rocephin was changed to Bactrim Received Bactrim for 5 days Stable (3) Pulmonary hypertension: (4) COPD (chronic obstructive pulmonary disease): (5) Chronic respiratory failure: Continue oral home dose prednisone Continue oxygen supplementation which is at baseline. Script given for oxygen supplement Stable (6) Dilated gallbladder: CT abd/pelvis showed gallbladder wall appears mildly thickened and hyperemic and there is pericystic inflammation Clinically no evidence of acute cholecystitis. Surgery on board poor candidate for surgical intervention Tolerated diet Denies any abdominal pain Stable (7) CKD (chronic kidney disease), stage III: Stable, at baseline. (8) Thrombocytopenia: Unknown etiology Platelet factor for antibody is negative. No signs of bleeding Platelet 119 today Monitor CBC (9) DVT prophylaxis: On SCD due to thrombocytopenia Code status DNR/DNI Disposition Will discharge today Palliative care on board, not hospice appropriate at this time. Subjective Pt was seen and examined Lying in bed with no distress Pt vomiting early today after getting her cough syrup Nurse said that she coughed it up and feels better after that She was putting make up when i got to her room She is more awake today and denies any urinary symptoms Denies any chest pain, palpitation, dizziness and abdominal pain Physical Exam Physical Exam: General- No acute distress, generalize weakness Head- atraumatic Eyes- PERRL, EOMI, ENT- oropharynx clear Neck- supple, no JVD Lungs- clear to auscultation Heart- regular rhythm; no murmur Abdomen- normal bowel sounds, soft, nontender Extremities- no calf tenderness Neuro- alert, oriented PERRL,; no facial palsy Skin- warm & dry, +ecchymoses in extremities Results & Data Vital Signs (Past 12 Hours) Vital Signs Temp Pulse Pulse Resp BP Pulse Ox 10/28/18 11:00 37.1 C 94 H 20 138/82 93 10/28/18 07:27 36.6 C 115 H 16 148/91 H 90 10/28/18 06:32 114 H 29 H 86 L 10/28/18 03:32 36.6 C 81 81 22 158/95 H 97
[2018-10-29] MEDS ORDERED: predniSONE 10 MG TABLET PO SCH (09:00)
--- NOTE | 2018-10-31 01:15 | Discharge Summary ---
Date of Service October 28, 2018 Admission HPI Per Admitting Provider History obtained from patient and records. Medical history significant for chronic respiratory failure secondary to steroid-dependent COPD, past tobacco abuse, hypertension, history 2AV block as per records. Recent confinement 2 weeks ago for respiratory failure secondary to COPD exacerbation. Patient's home Norvasc switched to Coreg to avoid concomitant intake with patient's home Cardizem Rx (another calcium channel jose angel) as per notes. At home, patient noted generalized weakness, feeling very tired. Patient wondering if new blood pressure medicine was causing symptoms. Same junky to dry cough symptoms worsened with intake of cold water. Shortness of breath a little worsening. No unusual chest pain, usual bilateral leg pain. Patient noted achy hypogastric discomfort. Achy left-sided headache symptoms. No emesis. Poor appetite. [facility] nurse wants to evaluate patient for hospice appropriateness as per records. Patient brought to the emergency room for increasing weakness. Received IV ceftriaxone for sepsis. Medical History as above Surgical History : Appendectomy, BTL Family History : Heart disease, diabetes, stroke Personal/Social history : Past tobacco abuse, daily alcohol intake (denies abuse), retired [employer] employee Admission Exam Per Admitting Provider GENERAL: wane, no respiratory distress SKIN: Normal color, warm, ecchymoses over the extremities HEENT: [place] palpebral conjunctivae, no ptosis, dry buccal mucosa NECK : Supple, no tenderness CHEST : Decreased breath sounds , no tenderness HEART : Tachycardic , no obvious murmurs ABDOMEN: Some distention, right upper quadrant tenderness EXTREMITIES : Minimal LE swelling, no LE tenderness, no other conspicuous deformities noted except for ecchymosis NEUROLOGIC : Coherent, no facial asymmetry, slightly hard of hearing, gait and stance not assessed Principal Diagnosis Weakness UTI (urinary tract infection) Pulmonary hypertension COPD (chronic obstructive pulmonary disease) Chronic respiratory failure Dilated gallbladder CKD (chronic kidney disease), stage III Thrombocytopenia Discharge Exam General- No acute distress, generalize weakness Head- atraumatic Eyes- PERRL, EOMI, ENT- oropharynx clear Neck- supple, no JVD Lungs- clear to auscultation Heart- regular rhythm; no murmur Abdomen- normal bowel sounds, soft, nontender Extremities- no calf tenderness Neuro- alert, oriented PERRL,; no facial palsy Skin- warm & dry, +ecchymoses in extremities Discharge Data Allergies Allergy/AdvReac Type Severity Reaction Status Date / Time budesonide Allergy Severe TOLERATES Verified 10/22/18 17:42 PULMICORT.Swelling of neck, face, all extremities. formoterol Allergy Severe Swelling Verified 10/22/18 17:42 of face and throat. ipratropium Allergy Severe swelling Verified 10/22/18 17:42 of face and neck mometasone furoate Allergy Severe Swelling Verified 10/22/18 17:42 of face and throat. tetanus toxoid, adsorbed Allergy Severe SWELLING Verified 10/22/18 17:42 levofloxacin Allergy Intermediate Flushing. Verified 10/22/18 17:42 strawberry Allergy Mild hives Verified 10/22/18 17:42 Cipro Allergy Unknown UNKOWN Verified 02/20/17 09:05 ciprofloxacin Allergy Unknown UNKOWN Verified 10/22/18 17:42 doxycycline Allergy Unknown unkn Verified 10/22/18 17:42 mivacurium Allergy Unknown UNKNOWN Verified 10/22/18 17:42 carvedilol [From Coreg] AdvReac Intermediate weakness, Verified 10/22/18 21:54 dizziness morphine AdvReac Mild nausea Verified 10/22/18 17:42 Consultations 10/22/18 19:27 ED Decision to Admit Stat 10/23/18 00:49 Consult Case Management - Discharge Planning Routine Consult General Surgery Routine 10/25/18 16:20 Consult Palliative Care Routine 10/26/18 15:05 Consult Case Management - Discharge Planning Routine 10/27/18 11:55 Consult Patient Services Routine Ordered Studies 10/22/18 20:13 CT head/brain wo con Urgent 10/22/18 20:16 CT abd pelvis IV con only Urgent XR chest 1V portable CLINICAL HISTORY: 78 years-old Female presenting with cough. TECHNIQUE: Portable upright AP view of the chest was obtained. COMPARISON: 10/22/2018. FINDINGS: Left subclavian pacer with leads in the right atrium and right ventricular apex. External foreign bodies project over the right hemithorax at the lung base to grating evaluation. Atherosclerosis of the aortic arch. Cardiac silhouette mildly enlarged. Slight improved aeration of the left lung base. A lesser degree of vague opacity at the right lung base, which may be vascular in etiology or due to overlapping structures. Heterogeneity of lung parenchyma. No new focal opacity. Osseous structures normal. IMPRESSION: 1. Improved aeration of the left lung base with near resolution of the left lung base infiltrate. Continued follow-up to resolution could be considered with a PA and lateral view. 2. Mild cardiomegaly. No advanced congestive change. 3. Heterogeneity lung parenchyma may imply underlying emphysema. Electronically signed by: Clovis Montoya M.D. 10/28/2018 7:35 AM Dictated: 10/28/18 0732 Transcribed: 10/28/[address] SCAN OF THE ABDOMEN AND PELVIS WITH IV CONTRAST CLINICAL HISTORY: Generalized abdominal pain. COMPARISON STUDY: Abdominal CT dated 06/04/2014. TECHNIQUE: Following the IV administration of 93 cc of Optiray 320, CT scan of the abdomen and pelvis is performed from the lung bases to the proximal femora. Images are reviewed in the axial, sagittal, and coronal planes. IV contrast was administered without complication. A dose lowering technique was utilized adhering to the principles of ALARA. The examination is degraded by streak artifact from the arms which could not be elevated above the abdomen. CT DOSE: 770.37 mGy.cm FINDINGS: Lung bases: The heart is normal in size and without pericardial effusion. Pacemaker leads are noted. Bronchiectasis is noted at both lung bases. There is bibasilar consolidation. Liver: The contrast-enhanced liver is normal in size, contour, and attenuation. There is no intrahepatic biliary ductal dilatation. The hepatic veins and portal veins are patent. Gallbladder: The gallbladder is partially distended. There is mild wall thickening and hyperemia of the gallbladder mucosa. Faint pericholecystic stranding is observed. Spleen: Normal in size and attenuation. Pancreas: Atrophic and grossly unremarkable. Adrenal glands: Unremarkable. Kidneys: The contrast enhanced kidneys demonstrate cortical atrophy and are without hydronephrosis. The kidneys enhance symmetrically. Abdominal vasculature: The abdominal aorta is normal in course and caliber noting moderate atherosclerotic calcification. Bowel: The small bowel and colon are normal in course and caliber. The appendix is not identified and reported surgically absent. Peritoneum: There is no intraperitoneal free air or abdominal ascites. There is laxity of the ventral pelvic wall with diastases of the rectus musculature and protrusion of abdominal contents. Lymphadenopathy: None. Pelvic viscera: The bladder, uterus, and adnexa are normal as visualized. Findings suggest pelvic floor prolapse. Skeletal structures: The skeletal structures are osteopenic. There is mild lumbosacral spondylosis. No lytic or blastic lesions are seen. IMPRESSION: 1. There is bibasilar airspace consolidation. Correlate clinically for evidence of pneumonia/aspiration pneumonitis. Radiographic follow-up to resolution is recommended. 2. The gallbladder is partially distended. The gallbladder wall appears mildly thickened and hyperemic and there is pericystic inflammation. Correlate with clinical findings and laboratory studies for evidence of acute cholecystitis. Consider right upper quadrant ultrasound or nuclear hepatobiliary scan for fur ther assessment. 3. Additional findings as above. Electronically signed by: Contreras Thomas M.D. 10/22/2018 8:46 PM Dictated: 10/22/182040 Transcribed: 10/22/182040 CT SCAN OF THE BRAIN WITHOUT IV CONTRAST CLINICAL HISTORY: Headache. COMPARISON STUDY: CT of the brain dated 05/03/2015. TECHNIQUE: Unenhanced axial CT scan of the brain is performed from the vertex to the skull base. A dose lowering technique was utilized adhering to the principles of ALARA. CT DOSE: 537.48 mGy.cm FINDINGS: Brain parenchyma: There are age-related involutional changes noting mild subcortical and periventricular microangiopathic change. There is no hemorrhage, mass effect, or evidence of acute territorial ischemia by CT criteria. [place]- white matter differentiation is preserved. No extra-axial fluid collection is seen. Ventricles, sulci, cisterns: Prominent secondary to involutional change. Intracranial vasculature: There is atherosclerotic calcification of the cavernous carotid arteries. Calvarium: Unremarkable. Sinuses and mastoids: The visualized paranasal sinuses are clear. The mastoid air cells are well pneumatized. Orbits: The bony orbits are grossly intact. IMPRESSION: There is no hemorrhage, mass effect, or evidence of acute territorial ischemia by CT criteria. Electronically signed by: Contreras Thomas M.D. 10/22/2018 8:38 PM Dictated: 10/22/182035 Transcribed: 10/22/182035 SINGLE VIEW CHEST CLINICAL HISTORY: Dyspnea. FINDINGS: An AP, portable, upright chest radiograph is compared to study dated 10/09/2018 and correlated with chest CT dated 05/31/2015. The examination is degraded by portable technique and apical lordotic positioning. A 2-lead cardiac pacemaker is unchanged in position and partially obscures the left upper chest. The heart is enlarged and there is atherosclerotic calcification of the thoracic aorta. The pulmonary vasculature is noncongested. Emphysema and chronic interstitial thickening are similar to previous. There is left basilar con solidation and a small left pleural effusion. Scarring/atelectasis is noted at the right lung base. No pneumothorax is seen. The skeletal structures are osteopenic. The bony thorax is grossly intact. IMPRESSION: 1. Cardiomegaly and cardiac pacemaker. There is no radiographic evidence of congestive failure. 2. Emphysema. 3. Airspace consolidation is noted at the left lung base with a small left pleural effusion. This is typical in appearance for pneumonia/aspiration pneumonitis. Clinical correlation will be required and radiographic follow-up to resolution is recommended. Electronically signed by: Contreras Thomas M.D. 10/22/2018 5:38 PM Dictated: 10/22/181735 Transcribed: 10/22/181735 Hospital Course (1) Weakness: Possible related to acute illness vs Withdrawal symptom vs adrenal insufficiency CT head showed no hemorrhage, mass effect, or evidence of acute territorial ischemia Received stress dose steroid Continue PT/OT Fall precaution (2) UTI (urinary tract infection): Urine cx positive for citrobacter freundii Elevated WBC possible related to steroid Rocephin was changed to Bactrim Received Bactrim for 5 days Stable (3) Pulmonary hypertension: (4) COPD (chronic obstructive pulmonary disease): (5) Chronic respiratory failure: Continue oral home dose prednisone Continue oxygen supplementation which is at baseline. Script given for oxygen supplement Stable (6) Dilated gallbladder: CT abd/pelvis showed gallbladder wall appears mildly thickened and hyperemic and there is pericystic inflammation Clinically no evidence of acute cholecystitis. Surgery on board poor candidate for surgical intervention Tolerated diet Denies any abdominal pain Stable (7) CKD (chronic kidney disease), stage III: Stable, at baseline. (8) Thrombocytopenia: Unknown etiology Platelet factor for antibody is negative. No signs of bleeding Platelet 119 today Monitor CBC (9) DVT prophylaxis: On SCD due to thrombocytopenia Code status DNR/DNI Disposition Will discharge today Palliative care on board, not hospice appropriate at this time. Total Time Total Time Spent Total Time Spent (In Minutes): 35 minutes Total Time Includes: Examination of the Patient, Discharge Planning, Medication Reconciliation, Communication With Other Providers and Other Discharge Plan Discharge Items Patient Disposition: Home - Home Health Services Reason For Visit: SEPSIS, HTN URGENCY Discharge Diagnosis: Weakness UTI (urinary tract infection) Pulmonary hypertension COPD (chronic obstructive pulmonary disease) Chronic respiratory failure Dilated gallbladder CKD (chronic kidney disease), stage III Thrombocytopenia Discharge Goals: Decrease discomfort, Improve disease control, Improve function and Increase independence Activity: Resume your previous activity Activity Comment: As tolerated Non-emergency contact: Primary Care Provider Call non-emergency contact if: you have any medication questions and your temperature is above 101 Follow-up/Referrals: Zara Corona MD [Primary Care Provider] - Diet: Heart Healthy Addtl Provider Instructions: Follow up with primary care provider Dr. Esquivel (Dr. Corona colleague) on 11/04 at 2 PM Continue physical and occupational therapy Fall precaution Continue oxygen supplement Continue monitor your blood pressure Prescriptions: New sulfamethoxazole-trimethoprim 800-160 mg Tablet 1 tab PO Q12@0600,1800 Qty: 3 RF: 0 diltiazem HCl 30 mg Tablet 30 mg PO 1300,1700 30 Days Qty: 60 RF: 0 Continued famotidine 40 mg Tablet 40 mg PO DAILY RF: 0 lorazepam 0.5 mg Tablet 0.5 mg PO BID PRN (Reason: Anxiety) RF: 0 hydrocodone-chlorpheniramine 10-8 mg/5 mL suspension,extended rel 12 hr 5 ml PO BID RF: 0 albuterol sulfate 90 mcg/actuation HFA aerosol inhaler 2 puff inhalation QID RF: 0 diltiazem HCl 30 mg tablet 60 mg PO QAM RF: 0 Symbicort 160-4.5 mcg/actuation Hfa Aerosol Inhaler 2 puff INHALATION BID RF: 0 prednisone 10 mg Tablet 10 mg PO DAILY RF: 0 ranitidine HCl 300 mg Tablet 300 mg PO HS RF: 0 potassium chloride 10 mEq Tablet Extended Release 10 meq PO DAILY RF: 0 citalopram [Celexa] 20 mg Tablet 20 mg PO DAILY RF: 0 furosemide [Lasix] 20 mg Tablet 20 mg PO DAILY RF: 0 melatonin 5 mg Tablet 5 mg PO HS PRN (Reason: Insomnia) RF: 0 ipratropium-albuterol 0.5 mg-3 mg(2.5 mg base)/3 mL Solution For Nebulization 3 ml INHALATION BID RF: 0 prednisone 20 mg Tablet 20 mg PO DAILY RF: 0 nystatin 100,000 unit/gram Cream 1 applic TOPICAL BID RF: 0 escitalopram oxalate [Lexapro] 5 mg Tablet 5 mg PO DAILY RF: 0 Discontinued diltiazem HCl 30 mg tablet 30 mg PO DIRECTED RF: 0 carvedilol 3.125 mg Tablet 3.125 mg PO BID 30 Days Qty: 60 RF: 0 Stand-Alone Forms: [facility] Discharge Orders: Discharge Order (Routine); Ordered 10/28/18 Ordered By: Tonia Back Admission Data Admit Date/Time: 10/22/18 21:48 Attending Provider: Tonia Back Admit Provider: Abdullahi Hunter Primary Care Provider: Zara Corona Other Providers: Neeraj Wilhelm Susan H Service: Telemetry Medical Other Interventions: Discharge Summary Assessment (RN) Last Done: 10/28/18 15:44 DC Date/Time DO NOT enter until pt leaves facility: 10/28/18 16:22
== END 2018-10-28 16:22 | disposition home health service (06) | DRG 690 ==
LOC: ED 16:50 → SUATTDRO 21:48 → 2N 21:48
DX: D69.6 Thrombocytopenia, unspecified; Z79.899 Other long term (current) drug therapy; I27.20 Pulmonary hypertension, unspecified; J44.9 Chronic obstructive pulmonary disease, unspecified; Z99.81 Dependence on supplemental oxygen; J96.11 Chronic respiratory failure with hypoxia; N18.3 Chronic kidney disease, stage 3 (moderate); Z66 Do not resuscitate; I12.9 Hypertensive chronic kidney disease with stage 1 through stage 4 chronic kidney disease, or unspecified chronic kidney disease; N39.0 Urinary tract infection, site not specified; Z79.52 Long term (current) use of systemic steroids; Z87.891 Personal history of nicotine dependence; Z51.5 Encounter for palliative care; R53.1 Weakness